=== PATIENT | male | born 1955 | race African-American/Black ===

== ENCOUNTER 2017-11-29 04:11 | Inpatient (IN) | payer OTHER ==
[2017-11-29 05:04] VITALS: BMI 46.1
--- NOTE | 2017-11-29 06:26 | PDOC ---
History of Present Illness - General Chief Complaint: Abscess Boil Stated Complaint: ABCESS History Source: Patient Exam Limitations: No Limitations - History of Present Illness Initial Comments: 11/29/17 06:08 Patient is a 62-year-old male with history of diabetes, sarcoidosis, psoriatic arthritis, scrotal abscess complaining off bilateral leg swelling 1 month, shortness of breath, scrotal abscess x 6 months, 30 lbs weight loss over 6 month. States now sleeping 18 hours per day, has weakness and is unable to walk. Patient states as it relates to the abscess, has been ongoing x 6 months , has been on 2 courses of Augmentin last course was 2 weeks ago. States it has been has large a fist and has opened on it owned and drained several times with from purulent, to serosanguinous to bloody discharge. has been on the road travelling and so has no been able to take care of this sufficiently. The most troubling symptoms today is the b/l leg swelling which are now up to the knees, which is now painful 8/10 making it difficult to walk. States it feels as if he has boots on the leg. has been elevating them at night but no relief, remained the same in the morning. 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 PMD: Dr. Dockery PMHX: As above PSOCHX: neg etoh, drug, cig ALL: NKDA GENERAL/CONSTITUTIONAL: [No fever or chills. No weakness. No weight change.] HEAD, EYES, EARS, NOSE AND THROAT: [No change in vision. No ear pain or discharge. No sore throat.] CARDIOVASCULAR: [No chest pain (+) shortness of breath.] RESPIRATORY: [No cough, wheezing, or hemoptysis.] GASTROINTESTINAL: [No nausea, vomiting, diarrhea or constipation. No rectal bleeding.] GENITOURINARY: [No dysuria, frequency, or change in urination.] MUSCULOSKELETAL: (+) joint or muscle swelling or pain. No neck or back pain.] SKIN AND BREASTS: (+) rash (-) easy bruising.] NEUROLOGIC: [No headache, vertigo, loss of consciousness, or loss of sensation.] PSYCHIATRIC: [No depression or anxiety.] ENDOCRINE: [No increased thirst. No abnormal weight change.] HEMATOLOGIC/LYMPHATIC: [No anemia, easy bleeding, or history of blood clots.] ALLERGIC/IMMUNOLOGIC: [No hives or skin allergy. No latex allergy.] GENERAL: [The patient is awake, alert, and fully oriented, in mild distress.] HEAD: [Normal with no signs of trauma.] EYES: [Pupils equal, round and reactive to light, extraocular movements intact, sclera anicteric, conjunctiva clear.] ENT: [Ears normal, nares patent, oropharynx clear without exudates. Moist mucous membranes.] NECK: [Normal range of motion, supple without lymphadenopathy, JVD, or masses.] LUNGS: [Breath sounds equal, clear to auscultation bilaterally. No wheezes, and no crackles.] HEART: [Regular rate and rhythm, normal S1 and S2 without murmur, rub.] ABDOMEN: [Soft, nontender, normoactive bowel sounds. No guarding, no rebound. No masses.] EXTREMITIES: [Normal range of motion, 2+ pitting edema b/l lower ext up to knee. No clubbing or cyanosis. (+) calf tenderness, (+) erythema , or tenderness.] NEUROLOGICAL: [Cranial nerves II through XII grossly intact. Normal speech, normal gait.] PSYCH: [Normal mood, normal affect.] SKIN: [Warm, Dry, (+) hyperpigmentation to the b/l lower ext, poor turgor noted. ] Past History - Past Medical History Allergies/Adverse Reactions: Allergies Allergy/AdvReac Type Severity Reaction Status Date / Time cashew nut Allergy Verified 11/29/17 05:05 pistachio nut Allergy Verified 11/29/17 05:05 - Suicide/Smoking/Psychosocial Hx Smoking History: Never smoked Have you smoked in the past 12 months: No Information on smoking cessation initiated: No Hx Alcohol Use: No Drug/Substance Use Hx: No *Physical Exam - Vital Signs Last Vital Signs Temp Pulse Resp BP Pulse Ox 98.8 F 101 H 18 136/66 98 11/29/17 05:00 11/29/17 05:00 11/29/17 05:00 11/29/17 05:00 11/29/17 05:00 Medical Decision Making - Medical Decision Making 11/29/17 06:08 Patient is a 62-year-old male with history of diabetes, sarcoidosis, psoriatic arthritis, scrotal abscess complaining off bilateral leg swelling 1 month, shortness of breath, scrotal abscess x 6 months, 30 lbs weight loss over 6 month. States now sleeping 18 hours per day, has weakness and is unable to walk. will get labs, cxr, ekg, doppler of legs possible admission EKG SR rate 91, RAD, (-) ST-T wave changes Endorsed to Marine *DC/Admit/Observation/Transfer Diagnosis at time of Disposition: Bilateral lower extremity edema, SOB (shortness of breath), Scrotal abscess - Discharge Dispostion Condition at time of disposition: Stable - Referrals Referrals: Natalia Schaefer MD [Primary Care Provider] - - Patient Instructions - Post Discharge Activity
[2017-11-29 07:21] LABS: BASO % 1.2 % (0-2.0); EOS % 10.8 % (0-4.5); HEMOGLOBIN 11.9 GM/dL (11.7-16.9); LYMPH % 9.1 % (8-40); MCH 30.5 pg (25.7-33.7); MCHC 34.1 g/dl (32.0-35.9); MEAN CELL VOLUME 89.5 fl (80-96); MEAN PLT VOLUME 7.5 fl (7.5-11.1); MONO % 11.4 % (3.8-10.2); NEUT % 67.5 % (42.8-82.8); PLATELET COUNT 195 K/MM3 (134-434); RBC 3.91 M/mm3 (4.00-5.60); RDW 12.8 % (11.9-15.9); WHITE BLOOD COUNT 6.6 K/mm3 (4.0-10.0)
--- NOTE | 2017-11-29 07:27 | PDOC ---
*Physical Exam - Vital Signs Last Vital Signs Temp Pulse Resp BP Pulse Ox 98.8 F 101 H 18 136/66 98 11/29/17 05:00 11/29/17 05:00 11/29/17 05:00 11/29/17 05:00 11/29/17 05:00 - Physical Exam General Appearance: Yes: Nourished, Appropriately Dressed. No: Apparent Distress Respiratory/Chest: positive: Lungs Clear, Normal Breath Sounds. negative: Respiratory Distress, Accessory Muscle Use, Rhonchi, Stridor, Wheezing Cardiovascular: positive: Regular Rhythm, Regular Rate, S1, S2 (present). negative: Murmur Male Genitalia: positive: other (scrotal abscess to the L/mid scrotum with induration spreading to the L inguanal area, actively draining and warm to touch ) Extremity: positive: Pedal Edema (2+ pitting edma), Swelling Integumentary: positive: Dry, Warm, Erythema (L scrotum), Other (active draining ). negative: Normal Color (venous stasis changes to the lower extremities b/l) Neurologic: positive: Fully Oriented, Alert, Normal Mood/Affect, Normal Response ED Treatment Course - LABORATORY CBC & Chemistry Diagram: 11/29/17 07:02 11/29/17 07:02 Medical Decision Making - Medical Decision Making 11/29/17 07:26 Pt signed out to me by ANJANA Lima at 07:00. Pt presents with complaints of draining scrotal abscess and b/l pedal edema. Pt pending lab work, US and CXR. 11/29/17 11:55 Pt now in holding 2 after ultrasound. Pt with actively draining scrotal abscess to the L scrotal region with associated induration to the L testicular and L inguinal regions. No crepitus on palpation. No evidence of gangrene at this time. Failed outpatient treatment. No leukocytosis at this time, however blood glucose is elevated at 300 despite normal insulin use at home. Wound cultures and blood cultures obtained. Patient pending scrotal US. Pt also with b/l 2+ pitting edema and venous stasis changes. B/L lower extremity dopplers are negative for DVT at this time. BNP mildly elevated in the 500's. Urine with 1+ protein. Possibly d/t infection? No evidence of CHF on CXR. -Pt will need IV abx and urology followup. Vancomycin and zosyn ordered. Pt admitted to Med/Surg and case discussed with Dr. Bell. *DC/Admit/Observation/Transfer Diagnosis at time of Disposition: Bilateral lower extremity edema, Scrotal abscess - Discharge Dispostion Condition at time of disposition: Stable Decision to Admit order: Yes - Referrals Referrals: Natalia Schaefer MD [Primary Care Provider] - - Patient Instructions - Post Discharge Activity
[2017-11-29 08:41] LABS: ALBUMIN 2.8 g/dl (3.4-5.0); ALK PHOS 89 U/L (45-117); ANION GAP 8 MMOL/L (8-16); BILIRUBIN,TOTAL 0.4 mg/dL (0.2-1); BLOOD UREA NITROGEN 13 mg/dL (7-18); CALCIUM 8.7 mg/dL (8.5-10.1); CHLORIDE 101 mmol/L (98-107); CO2 26 mmol/L (21-32); CREATININE 1.3 mg/dL (0.55-1.3); N-TERMINAL BNP 586.7 pg/ml (5-125); SGOT/AST 17 U/L (15-37); SGPT/ALT 21 U/L (13-61); SODIUM 134 mmol/L (136-145); TOT PROT 6.5 g/dl (6.4-8.2)
[2017-11-29 08:53] LABS: GLUCOSE,RANDOM 306 mg/dL (74-106)
[2017-11-29] MEDS ORDERED: INSULIN REGULAR HUMAN 100 UNITS/ML *VIAL IVPUSH ONE (09:28)
[2017-11-29] MEDS ORDERED: INSULIN REGULAR HUMAN 100 UNITS/ML *VIAL ONE (10:52)
[2017-11-29 11:36] LABS: URINE APPEARANCE SLCLOUDY; URINE BILIRUBIN NEGATIVE (<2.0 mg/dL); URINE COLOR YELLOW; URINE GLUCOSE (UA) 3+ (NEGATIVE); URINE KETONE NEGATIVE (NEGATIVE); URINE LEUK ESTERASE NEGATIVE (NEGATIVE); URINE NITRITE NEGATIVE (NEGATIVE)
[2017-11-29 11:40] LABS: URINE PROTEIN 1+ (NEGATIVE)
[2017-11-29] MEDS ORDERED: PIPERACILLIN/TAZOB 3.375 GM 3.375 GM in DEXTROSE 5%-WATER - 50 ML IVPB ONE (11:49)
[2017-11-29] MEDS ORDERED: VANCOMYCIN 1,000 MG in DEXTROSE 5%-WATER - 250 ML IVPB ONE (11:49)
[2017-11-29 11:50] LABS: EPI CELLS RARE /HPF (FEW); GRANULAR CASTS 5 /lpf; URINE BACTERIA RARE /hpf (NONE SEEN); URINE HYALINE CAST 59 /lpf; URINE MUCUS RARE
[2017-11-29] MEDS ORDERED: PIPERACILLIN/TAZOB 3.375 GM 3.375 GM/50 ML BAG IVPB ONE (13:19)
[2017-11-29] MEDS ORDERED: VANCOMYCIN 1 GRAM (PRE-DOCKED) 1,000 MG/250 ML BAG IVPB ONE (13:19)
[2017-11-29] MEDS ORDERED: ONDANSETRON 4 MG/2 ML VIAL IVPUSH PRN (13:57)
[2017-11-29] MEDS ORDERED: IBUPROFEN 200 MG TABLET PO SCH (14:00)
--- NOTE | 2017-11-29 14:29 | HP ---
Admitting History and Physical - Primary Care Physician PCP: Natalia Schaefer - Admission Chief Complaint: I can't walk History of Present Illness: Mr Gray is a pleasant 62 year old male who comes in complaining of difficulty walking secondary to scrotal abscess and leg pain with swelling. He says that the abscess began in June of this year. It has swollen and ruptured multiple times over the past 4 months. He has been seen by Dr Schaefer during this time and was prescribed augmentin and a salve. He says initially it would improve but did not last long. He was recently on prednisone for psoriatic arthritis but this was stopped approximately 2 months ago. Last month he noted that he was having bilateral lower extremity edema and it has been getting worse. He says he always feels like he is wearing a sock and is having pain in both legs with the edema. He says that he tries to elevate his legs but this did not help. He says the discomfort in his groin area combined with the pain and swelling in his legs caused him to be unable to walk. He says that with this he has fatigue and is sleeping 16 hours a day and 30lbs unintentional weight loss. He says that he has decreased appetite with this. He denies fevers, chills, lightheadedness, passing out (however he did pass out 2 weeks ago but was not brought to the hospital), chest pain, abdominal pain, nausea, vomiting, diarrhea , constipation, difficulty or pain on urination. He says he has chronic shortness of breath and this is unchanged. History Source: Patient Limitations to Obtaining History: No Limitations - Past Medical History Rheumatology: Yes: Sarcoidosis, Other (psoriatic arthritis) Endocrine: Yes: Diabetes Mellitus - Past Surgical History Past Surgical History: Yes: None - Smoking History Smoking history: Never smoked Have you smoked in the past 12 months: No - Alcohol/Substance Use Hx Alcohol Use: Yes (5-6 drinks per week) History of Substance Use: reports: Marijuana - Social History Usual Living Arrangement: Yes: With Spouse ADL: Independent History of Recent Travel: Yes Home Medications - Allergies Allergies/Adverse Reactions: Allergies Allergy/AdvReac Type Severity Reaction Status Date / Time cashew nut Allergy Verified 11/29/17 05:05 pistachio nut Allergy Verified 11/29/17 05:05 - Home Medications Home Medications: Ambulatory Orders Ibuprofen [Advil -] 1,200 mg PO QID 11/29/17 Insulin Glargine,Hum.rec.anlog [Lantus] 80 unit SQ HS 11/29/17 Family Disease History - Family Disease History Family Disease History: Diabetes: Mother (dementia), CA: Father (prostate), Brother (prostate), Other: Mother Review of Systems Findings/Remarks: Full review of systems obtained, as per HPI and otherwise negative Physical Examination Vital Signs: Vital Signs Temperature 36.9 C 11/29/17 08:27 Pulse Rate 66 11/29/17 08:27 Respiratory Rate 17 11/29/17 08:27 Blood Pressure 129/66 11/29/17 08:27 O2 Sat by Pulse Oximetry (%) 95 11/29/17 08:27 Constitutional: Yes: No Distress, Calm, Obese (morbid) Eyes: Yes: Conjunctiva Clear, PERRL HENT: Yes: Atraumatic, Normocephalic Cardiovascular: Yes: Regular Rate and Rhythm. No: Gallop, Murmur, Rub Respiratory: Yes: Regular, CTA Bilaterally. No: Rales, Rhonchi, Wheezes Gastrointestinal: Yes: Normal Bowel Sounds, Soft. No: Distention, Tenderness Extremities: Yes: Other (chronic venous stasis changes) Edema: LLE: 2+, RLE: 2+ Labs: CBC, BMP 11/29/17 07:02 11/29/17 07:02 Imaging - Results Chest X-ray: Report Reviewed, Image Reviewed Ultrasound: Report Reviewed Problem List - Problems (1) Scrotal abscess Assessment/Plan: -case d/w Dr Zuleta -patient with cellulitis and fistula -admit to med surg -given vancomycin and zosyn in the ED -wound cultures sent -will continue zosyn -urology consult Code(s): N49.2 - INFLAMMATORY DISORDERS OF SCROTUM (2) Psoriatic arthritis Assessment/Plan: -with pain controlled by high dose ibuprofen and methotrexate -will hold methotrexate in light of active infection -recently taken off of prednisone -considering poorly controlled DM, will hold ibuprofen as well -consult rheumatology for guidance Code(s): L40.50 - ARTHROPATHIC PSORIASIS, UNSPECIFIED (3) Diabetes mellitus Assessment/Plan: -diabetic diet -continue lantus 80 units qhs (may be changed to levemir) -FSBS and SSI -check HgbA1c Code(s): E11.9 - TYPE 2 DIABETES MELLITUS WITHOUT COMPLICATIONS (4) Sarcoid Assessment/Plan: -pulmonary -consult pulmonary for assistance Code(s): D86.9 - SARCOIDOSIS, UNSPECIFIED (5) Syncope Assessment/Plan: -occurred 2 weeks ago -has not recurred -will check ECHO and carotid ultrasound Code(s): R55 - SYNCOPE AND COLLAPSE (6) Morbid obesity with BMI of 45.0-49.9, adult Assessment/Plan: -outpatient weight loss plan Code(s): E66.01 - MORBID (SEVERE) OBESITY DUE TO EXCESS CALORIES; Z68.42 - BODY MASS INDEX (BMI) 45.0-49.9, ADULT (7) Bilateral lower extremity edema Assessment/Plan: -suspect lymphedema -check ECHO to evaluate EF -monitor, will hold on diuretics at this time Code(s): R60.0 - LOCALIZED EDEMA
[2017-11-29] MEDS: LACTOBACILLUS ACIDOPHILUS 1 TABLET PO SCH (15:19)
--- NOTE | 2017-11-29 16:02 | ECHO ---
Name: MAURICE ISAAC Exam:Adult Echocardiogram Study Date: 11/29/2017 02:28 PM Age: 62 yrs Reason For Study: syncope,BLE edema Height: 73 in Weight: 350 lb BSA: 2.7 m2 MMode/2D Measurements & Calculations RVDd: 3.9 cm Ao root diam: 3.5 cm IVSd: 1.2 cm LA dimension: 4.2 cm LVIDd: 5.4 cm ACS: 1.8 cm LVIDs: 4.4 cm LVPWd: 1.2 cm IVSs: 1.5 cm LVPWs: 1.4 cm EDV(Teich): 144.2 ml ESV(Teich): 86.3 ml Doppler Measurements & Calculations MV E max chriss: 80.2 cm/sec Ao V2 max: 156.4 cm/sec MV A max chriss: 83.2 cm/sec Ao max P.8 mmHg MV E/A: 0.96 Ao V2 mean: 125.5 cm/sec Ao mean P.7 mmHg Ao V2 VTI: 30.0 cm MR max chriss: 319.1 cm/sec TR max chriss: 282.6 cm/sec MR max P.7 mmHg TR max P.0 mmHg PI end-d chriss: 133.0 cm/sec Med Peak E' Chriss: 10.3 cm/sec Med E/e': 7.8 Lat Peak E' Chriss: 5.8 cm/sec Lat E/e': 13.8 Left Ventricle The left ventricle is grossly normal size. Left ventricular systolic function is moderately reduced. Ejection Fraction = 35-40%. There is severe inferior wall hypokinesis. There is basal posterolateral wall manuel re hypokinesis. Right Ventricle The right ventricle is grossly normal size. The right ventricular systolic function is grossly normal . Atria Borderline left atrial enlargement. Right atrial size is normal. Mitral Valve There is mild mitral valve thickening. There is trace to mild mitral regurgitation. Tricuspid Valve The tricuspid valve is not well visualized. There is Trace to mild tricuspid regurgitation. Aortic Valve The aortic valve opens well. There is mild aortic valve thickening. The aortic valve is trileaflet. T race aortic regurgitation. Pulmonic Valve The pulmonic valve is not well visualized. Great Vessels The aortic root is normal size. Pericardium/Pleura There is no pericardial effusion. Interpretation Summary There is no comparison study available. The left ventricle is grossly normal size. The right ventricle is grossly normal size. Trace aortic regurgitation. Left ventricular systolic function is moderately reduced. There is trace to mild mitral regurgitation. Winston Clark MD 11/29/2017 04:01 PM
[2017-11-29] MEDS: PIPERACILLIN/TAZOB 3.375 GM 3.375 GM in DEXTROSE 5%-WATER - 50 ML IVPB SCH (17:09)
[2017-11-29] MEDS: INSULIN SLIDING SCALE (NOVOLOG) 1 VIAL SQ SCH ×2 (17:17→23:49)
[2017-11-29] MEDS ORDERED: INSULIN (NOVOLOG) ASPART 100 UNITS/ML 10ML VIAL ONE ×2 (17:18→22:33)
--- NOTE | 2017-11-29 18:09 | EKG ---
Test Reason : Blood Pressure : / mmHG Vent. Rate : 091 BPM Atrial Rate : 091 BPM P-R Int : 186 ms QRS Dur : 094 ms QT Int : 384 ms P-R-T Axes : 055 247 055 degrees QTc Int : 472 ms NORMAL SINUS RHYTHM POSSIBLE ANTERIOR INFARCT , AGE UNDETERMINED ABNORMAL ECG NO PREVIOUS ECGS AVAILABLE Confirmed by MEGHAN NORRIS MD ([id number]) on 11/29/2017 6:08:27 PM Referred By: Confirmed By:MEGHAN NORRIS MD
--- NOTE | 2017-11-29 18:32 | CON.GU ---
Consult Consult Specialty:: Referred by:: ED Reason for Consultation:: scrotal abscess - History of Present Illness Chief Complaint: scrotal abscess History of Present Illness: 62 year old male with a recurrently draining perineal abscess over the last few months. He has not seen a urologist yet. Recently he also saw [facility] on the LLE with swelling, the abscess self drained. He is hyperglycemic - History Source History Provided By: Patient Limitations to Obtaining History: No Limitations - Past Medical History Rheumatology: Yes: Sarcoidosis, Other (psoriatic arthritis) Endocrine: Yes: Diabetes Mellitus - Past Surgical History Past Surgical History: Yes: None - Alcohol/Substance Use Hx Alcohol Use: Yes (5-6 drinks per week) History of Substance Use: reports: Marijuana - Smoking History Smoking history: Never smoked Have you smoked in the past 12 months: No - Social History ADL: Independent History of Recent Travel: Yes Home Medications - Allergies Allergies/Adverse Reactions: Allergies Allergy/AdvReac Type Severity Reaction Status Date / Time cashew nut Allergy Verified 11/29/17 05:05 pistachio nut Allergy Verified 11/29/17 05:05 - Home Medications Home Medications: Ambulatory Orders Ibuprofen [Advil -] 1,200 mg PO QID 11/29/17 Insulin Glargine,Hum.rec.anlog [Lantus] 80 unit SQ HS 11/29/17 Family Disease History - Family Disease History Family Disease History: Diabetes: Mother (dementia), CA: Father (prostate), Brother (prostate), Other: Mother Review of Systems - Review of Systems Constitutional: denies: Chills, Fever Genitourinary: reports: Other (perineal swelling, pain and drainage) Physical Exam- Vital Signs: Vital Signs Temperature 99.2 F 11/29/17 17:10 Pulse Rate 105 H 11/29/17 17:10 Respiratory Rate 18 11/29/17 17:10 Blood Pressure 126/80 11/29/17 17:10 O2 Sat by Pulse Oximetry (%) 100 11/29/17 17:10 Scrotum: Yes: Other (self drained area along inside of left thigh/groin. no masses appreciated.) Labs: CBC, BMP 11/29/17 07:02 11/29/17 07:02 Problem List - Problems (1) Scrotal abscess Assessment/Plan: self drained. IV ABX. will reassess. also need to address adjacent LLE swelling. better diabetic control Code(s): N49.2 - INFLAMMATORY DISORDERS OF SCROTUM
[2017-11-29] MEDS ORDERED: INSULIN (LEVEMIR) 100 UNITS/ML UNITS SQ SCH (22:00)
[2017-11-29] MEDS: HEPARIN NA (PORCINE) 5,000 UNITS/ML 1ML VIAL SQ SCH (23:50)
[2017-11-30] MEDS: INSULIN (LEVEMIR) 100 UNITS/ML UNITS SQ SCH ×3 (00:09→21:52)
[2017-11-30] MEDS ORDERED: PIPERACILLIN/TAZOBACTAM 3.375 GM VIAL IVPB ONE ×3 (01:41→17:00)
[2017-11-30] MEDS ORDERED: DEXTROSE 5%-WATER - 50 ML IVPB ONE ×3 (01:41→17:00)
[2017-11-30] MEDS: PIPERACILLIN/TAZOB 3.375 GM 3.375 GM in DEXTROSE 5%-WATER - 50 ML IVPB SCH ×3 (02:38→17:23)
[2017-11-30 05:23] LABS: URINE APPEARANCE CLEAR; URINE BILIRUBIN NEGATIVE (<2.0 mg/dL); URINE COLOR YELLOW; URINE GLUCOSE (UA) 1+ (NEGATIVE); URINE KETONE NEGATIVE (NEGATIVE); URINE LEUK ESTERASE NEGATIVE (NEGATIVE); URINE NITRITE NEGATIVE (NEGATIVE); URINE PROTEIN NEGATIVE (NEGATIVE); URINE UROBILINOGEN 4.0 E.U/dl mg/dL (0.2-1.0)
[2017-11-30] MEDS: INSULIN SLIDING SCALE (NOVOLOG) 1 VIAL SQ SCH ×4 (06:22→21:53)
[2017-11-30] MEDS: HEPARIN NA (PORCINE) 5,000 UNITS/ML 1ML VIAL SQ SCH ×3 (06:27→21:53)
[2017-11-30] MEDS ORDERED: INSULIN (LEVEMIR) 100 UNITS/ML UNITS SQ ONE (07:01)
[2017-11-30 07:40] LABS: EOS % 19.7 % (0-4.5); HEMATOCRIT 33.8 % (35.4-49); HEMOGLOBIN 11.5 GM/dL (11.7-16.9); MCH 30.3 pg (25.7-33.7); MCHC 34.1 g/dl (32.0-35.9); MEAN CELL VOLUME 88.7 fl (80-96); MEAN PLT VOLUME 7.7 fl (7.5-11.1); MONO % 16.5 % (3.8-10.2); NEUT % 49.8 % (42.8-82.8); PLATELET COUNT 206 K/MM3 (134-434); RBC 3.81 M/mm3 (4.00-5.60); RDW 12.8 % (11.9-15.9); WHITE BLOOD COUNT 5.4 K/mm3 (4.0-10.0)
[2017-11-30 07:58] LABS: ANION GAP 12 MMOL/L (8-16); BLOOD UREA NITROGEN 9 mg/dL (7-18); CALCIUM 8.7 mg/dL (8.5-10.1); CHLORIDE 105 mmol/L (98-107); CO2 23 mmol/L (21-32); GLUCOSE,RANDOM 167 mg/dL (74-106); MAGNESIUM 1.9 mg/dL (1.8-2.4); PHOSPHOROUS 4.2 mg/dL (2.5-4.9); POTASSIUM 3.8 mmol/L (3.5-5.1); SODIUM 140 mmol/L (136-145)
--- NOTE | 2017-11-30 09:29 | CON.CARD ---
Consult Consult Specialty:: Cardiology Referred by:: Arabella Reason for Consultation:: syncope, cardiomyopathy - History of Present Illness Chief Complaint: edema, syncope, leg pain History of Present Illness: 62M h/o sarcoidosis, psoriatic arthritis p/w scrotal abscess, leg pain, edema. Has bryan lower ext edema worsening over the last month with pain in both feet. Leg elevation did nto help. Has lost 30 lbs unintentionally, fatigue. No chest pain. Has had dyspnea on exertion for about the last 2 months, getting worse. Lives in 3rd floor walk up and notes that it was getting harder to walk up the stairs due to dyspnea and leg pains. also endorses orthopnea. Also notes history of syncope about 2 weeks ago, didn't eat enough, had too much alcohol he thinks. 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 Echo showed EF 35-40% during this admission, per patient no prior cardiac testing. Started on PO lasix, also on IV abx for scrotal abscess. No prior cardiac history. - History Source History Provided By: Patient - Past Medical History Cardio/Vascular: Yes: HTN Rheumatology: Yes: Sarcoidosis, Other (psoriatic arthritis) Endocrine: Yes: Diabetes Mellitus - Past Surgical History Past Surgical History: Yes: None - Alcohol/Substance Use Hx Alcohol Use: Yes (5-6 drinks per week) History of Substance Use: reports: Marijuana - Smoking History Smoking history: Never smoked Have you smoked in the past 12 months: No - Social History ADL: Independent History of Recent Travel: Yes Home Medications - Allergies Allergies/Adverse Reactions: Allergies Allergy/AdvReac Type Severity Reaction Status Date / Time cashew nut Allergy Verified 11/29/17 05:05 pistachio nut Allergy Verified 11/29/17 05:05 - Home Medications Home Medications: Ambulatory Orders Ibuprofen [Advil -] 1,200 mg PO QID 11/29/17 Insulin Glargine,Hum.rec.anlog [Lantus] 80 unit SQ HS 11/29/17 Methotrexate [Mexate -] 2.5 mg PO WEEKLY 11/29/17 Family Disease History - Family Disease History Family Disease History: Diabetes: Mother (dementia), CA: Father (prostate), Brother (prostate), Other: Mother Review of Systems - Review of Systems Constitutional: reports: Weakness Eyes: reports: No Symptoms HENT: reports: No Symptoms Neck: reports: No Symptoms Cardiovascular: reports: Edema, Shortness of Breath Respiratory: reports: SOB on Exertion Gastrointestinal: reports: No Symptoms Genitourinary: reports: Testicular Pain Musculoskeletal: reports: Joint Pain Integumentary: reports: No Symptoms Neurological: reports: No Symptoms Endocrine: reports: No Symptoms, Unexplained Weight Loss Hematology/Lymphatic: reports: No Symptoms Psychiatric: reports: No Symptoms Vital Signs: Vital Signs Temperature 99.1 F 11/30/17 09:02 Pulse Rate 95 H 11/30/17 09:02 Respiratory Rate 18 11/30/17 09:02 Blood Pressure 95/62 11/30/17 09:02 O2 Sat by Pulse Oximetry (%) 95 11/30/17 03:42 Constitutional: Yes: Well Nourished, No Distress, Calm Eyes: Yes: Conjunctiva Clear, EOM Intact HENT: Yes: Atraumatic, Normocephalic Neck: Yes: Supple, Trachea Midline Respiratory: Yes: Regular, CTA Bilaterally Gastrointestinal: Yes: Normal Bowel Sounds, Soft Cardiovascular: Yes: Regular Rate and Rhythm JVD: Yes Heart Sounds: Yes: S1, S2 Musculoskeletal: Yes: WNL Extremities: Yes: WNL Edema: Yes Edema: LLE: 2+, RLE: 2+ Peripheral Pulses: 2+ Left Doralis Pedis, 2+ Right Dorsalis Pedis Integumentary: Yes: WNL Neurological: Yes: Alert, Oriented ...Motor Strength: WNL Psychiatric: Yes: Alert, Oriented - Other Data Labs, Other Data: CBC, BMP 11/30/17 06:30 11/30/17 06:30 Troponin, BNP 11/29/17 18:43 Troponin I < 0.02 Troponin, BNP 11/29/17 18:43 Troponin I < 0.02 Assessment/Plan Carotid dopplers 11/2017 intimal thickening of R CCA and LCCA without sig stenosis. Echo 11/2017 EF 35-40%, tr-mild MR, nl RV, nl RV function EKG: sinus, old ant infarct 62M h/o sarcoidosis, psoriatic arthritis p/w scrotal abscess, leg pain, edema with new cardiomyopathy cardiomyopathy - EF 35-40% on echo, edema, orthopnea - etiology may be related to sarcoid, will discuss ischemic testing as outpatient, check TSH, iron studies - advised to stop alcohol use - started on lasix 20 mg daily - will start metoprolol succinate 12.5 mg daily, lisinopril 2.5 mg daily syncope - per history consistent with vasovagal, hypovolemia Scrotal abscess - on abx, manage per ID and primary sarcoidosis, psoriatic arthritis - rheum consulted, on methotrexate
[2017-11-30] MEDS ORDERED: FLU VACCINE QUAD 60 MCG/0.5 ML (MDV 18-19) IM ONE ×2 (10:00→12:45)
--- NOTE | 2017-11-30 11:45 | CON.PULM ---
Consult Consult Specialty:: PULMONARY Referred by:: Dr. Bell Reason for Consultation:: sarcoidosis - History of Present Illness Chief Complaint: leg swelling History of Present Illness: 62yo male with h/o psoriatic arthritis, sarcoidosis, DM who was admitted with worsening leg and scrotal swelling. Does report some shortness of breath with exertion. No fevers, chills or sweats. +unintentional weight loss. He states he was diagnosed with sarcoidosis about 3 years ago but not via biopsy and only with imaging. Not treated for sarcoidosis as he was asymptomatic. 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 No pets at home. - History Source History Provided By: Patient, Medical Record Limitations to Obtaining History: No Limitations - Past Medical History Cardio/Vascular: Yes: HTN Rheumatology: Yes: Sarcoidosis, Other (psoriatic arthritis) Endocrine: Yes: Diabetes Mellitus - Past Surgical History Past Surgical History: Yes: None - Alcohol/Substance Use Hx Alcohol Use: Yes (5-6 drinks per week) History of Substance Use: reports: Marijuana - Smoking History Smoking history: Never smoked Have you smoked in the past 12 months: No - Social History ADL: Independent History of Recent Travel: Yes Home Medications - Allergies Allergies/Adverse Reactions: Allergies Allergy/AdvReac Type Severity Reaction Status Date / Time cashew nut Allergy Verified 11/29/17 05:05 pistachio nut Allergy Verified 11/29/17 05:05 - Home Medications Home Medications: Ambulatory Orders Ibuprofen [Advil -] 1,200 mg PO QID 11/29/17 Insulin Glargine,Hum.rec.anlog [Lantus] 80 unit SQ HS 11/29/17 Methotrexate [Mexate -] 2.5 mg PO WEEKLY 11/29/17 Family Disease History - Family Disease History Family Disease History: Diabetes: Mother (dementia), CA: Father (prostate), Brother (prostate), Other: Mother Review of Systems - Review of Systems Constitutional: reports: Unintentional Wgt. Loss, Weakness. denies: Chills, Fever Eyes: denies: Recent Change in Vision HENT: denies: Nasal Congestion, Throat Pain Neck: denies: Stiffness, Tenderness Cardiovascular: reports: Edema, Shortness of Breath. denies: Chest Pain, Palpitations Respiratory: reports: Cough. denies: Hemoptysis, Wheezing Gastrointestinal: denies: Abdominal Pain, Nausea, Vomiting Genitourinary: denies: Dysuria, Hematuria Neurological: denies: Dizziness, Headache Endocrine: reports: Unexplained Weight Loss Physical Exam Vital Sings: Vital Signs Temperature 99.1 F 11/30/17 09:02 Pulse Rate 95 H 11/30/17 09:02 Respiratory Rate 18 11/30/17 09:02 Blood Pressure 95/62 11/30/17 09:02 O2 Sat by Pulse Oximetry (%) 95 11/30/17 03:42 Constitutional: Yes: Calm Eyes: Yes: Conjunctiva Clear, EOM Intact HENT: Yes: Atraumatic, Normocephalic Neck: Yes: Supple, Trachea Midline. No: Lymphadenopathy Cardiovascular: Yes: Regular Rate and Rhythm Respiratory: Yes: Diminished (decreased breath sounds at the bases) ...Clubbing: No Gastrointestinal: Yes: Normal Bowel Sounds, Soft, Abdomen, Obese. No: Tenderness Edema: Yes Neurological: Yes: Alert, Oriented Labs: CBC, BMP 11/30/17 06:30 11/30/17 06:30 Imaging - Results Chest X-ray: Report Reviewed, Image Reviewed (hilar prominence) Problem List - Problems (1) Acute on chronic systolic (congestive) heart failure Code(s): I50.23 - ACUTE ON CHRONIC SYSTOLIC (CONGESTIVE) HEART FAILURE (2) Diabetes mellitus Code(s): E11.9 - TYPE 2 DIABETES MELLITUS WITHOUT COMPLICATIONS (3) Morbid obesity with BMI of 45.0-49.9, adult Code(s): E66.01 - MORBID (SEVERE) OBESITY DUE TO EXCESS CALORIES; Z68.42 - BODY MASS INDEX (BMI) 45.0-49.9, ADULT (4) Sarcoid Code(s): D86.9 - SARCOIDOSIS, UNSPECIFIED (5) Scrotal abscess Code(s): N49.2 - INFLAMMATORY DISORDERS OF SCROTUM Assessment/Plan Scrotal Abscess Acute on likely Chronic Systolic Heart Failure Sarcoidosis Eosinophilia Psoriatic Arthritis DM Morbid Obesity - continue antibiotics - f/u cultures - agree with lasix - monitor urine output, creatinine - daily weights - will order CT chest with contrast to evaluate hilar prominence but likely from sarcoidosis - will need outpt f/u including PFTs, LINWOOD level - DVT prophylaxis Thank you for this consult Carrington Rushing MD
[2017-11-30] MEDS ORDERED: INSULIN (NOVOLOG) ASPART 100 UNITS/ML 10ML VIAL ONE ×2 (12:09→21:32)
[2017-11-30] MEDS: metoPROLOL SUCCINATE 25 MG TAB.SR.24H (FP) PO SCH (12:12)
[2017-11-30] MEDS: FUROSEMIDE 20 MG TABLET (FP) PO SCH (12:13)
[2017-11-30] MEDS: LISINOPRIL 5 MG TABLET (FP) PO SCH (12:14)
[2017-11-30] MEDS: LACTOBACILLUS ACIDOPHILUS 1 TABLET PO SCH (12:15)
--- NOTE | 2017-11-30 13:04 | PN ---
Progress Note, Physician Chief Complaint: Mr Gray says he is having pain in his legs and swelling is unchanged. No cp, sob, n/v. - Current Medication List Current Medications: Active Medications Acetaminophen (Tylenol -) 650 mg PO Q4H PRN PRN Reason: FEVER Furosemide (Lasix -) 20 mg PO DAILY [facility] Last Admin: 11/30/17 12:13 Dose: 20 mg Heparin Sodium (Porcine) (Heparin -) 5,000 unit SQ TID [facility] Last Admin: 11/30/17 06:27 Dose: 5,000 unit Piperacillin Sod/Tazobactam (Sod 3.375 gm/ Dextrose) 50 mls @ 100 mls/hr IVPB Q8H-IV [facility]; Protocol Last Admin: 11/30/17 12:12 Dose: 100 mls/hr Insulin Aspart (Novolog Vial Sliding Scale -) 1 vial SQ ACHS [facility]; Protocol Last Admin: 11/30/17 12:16 Dose: Not Given Insulin Detemir (Levemir Vial) 40 units SQ BID@0700,2200 [facility] Last Admin: 11/30/17 06:28 Dose: 40 units Lactobacillus Acidophilus (Bacid -) 1 tab PO DAILY [facility] Last Admin: 11/30/17 12:15 Dose: 1 tab Lisinopril (Prinivil) 2.5 mg PO DAILY [facility] Last Admin: 11/30/17 12:14 Dose: 2.5 mg Metoprolol Succinate (Toprol Xl -) 12.5 mg PO DAILY [facility] Last Admin: 11/30/17 12:12 Dose: 12.5 mg Ondansetron HCl (Zofran Injection) 4 mg IVPUSH Q6H PRN PRN Reason: NAUSEA - Objective Vital Signs: Vital Signs Temperature 37.3 C 11/30/17 09:02 Pulse Rate 95 H 11/30/17 09:02 Respiratory Rate 18 11/30/17 09:02 Blood Pressure 95/62 11/30/17 09:02 O2 Sat by Pulse Oximetry (%) 95 11/30/17 03:42 Constitutional: Yes: No Distress, Calm, Obese Cardiovascular: Yes: Regular Rate and Rhythm. No: Gallop, Murmur, Rub Respiratory: Yes: Regular, CTA Bilaterally. No: Rales, Rhonchi, Wheezes Gastrointestinal: Yes: Normal Bowel Sounds, Soft. No: Distention, Tenderness Extremities: Yes: Other (changes of venous stasis) Edema: Yes Edema: LLE: 2+, RLE: 2+ Labs: CBC, BMP 11/30/17 06:30 11/30/17 06:30 Problem List - Problems (1) Acute systolic (congestive) heart failure Code(s): I50.21 - ACUTE SYSTOLIC (CONGESTIVE) HEART FAILURE (2) Scrotal abscess Code(s): N49.2 - INFLAMMATORY DISORDERS OF SCROTUM (3) Psoriatic arthritis Code(s): L40.50 - ARTHROPATHIC PSORIASIS, UNSPECIFIED (4) Diabetes mellitus Code(s): E11.9 - TYPE 2 DIABETES MELLITUS WITHOUT COMPLICATIONS (5) Sarcoid Code(s): D86.9 - SARCOIDOSIS, UNSPECIFIED (6) Syncope Code(s): R55 - SYNCOPE AND COLLAPSE (7) Morbid obesity with BMI of 45.0-49.9, adult Code(s): E66.01 - MORBID (SEVERE) OBESITY DUE TO EXCESS CALORIES; Z68.42 - BODY MASS INDEX (BMI) 45.0-49.9, ADULT (8) Bilateral lower extremity edema Code(s): R60.0 - LOCALIZED EDEMA Assessment/Plan (1) Scrotal abscess Assessment/Plan: -appreciate urology and ID assistance -continue zosyn per ID orders Code(s): N49.2 - INFLAMMATORY DISORDERS OF SCROTUM (2) Acute systolic CHF exacerbation -new diagnosis of CHF this admission -cardiology consulted and case discussed -placed on lasix 20mg po daily since lasix naive -monitor I/Os -started on metoprolol 12.5mg bid and lisinopril 2.5mg daily -monitor for improvement -increase lasix as tolerated -outpatient cardiac catheterization (3) Psoriatic arthritis Assessment/Plan: -considering cardiac disease and diabetic, patient is high risk for NSAID use -will not use NSAIDs at this time -holding methotrexate considering infection -rheumatology consulted for further evaluation and care Code(s): L40.50 - ARTHROPATHIC PSORIASIS, UNSPECIFIED (4) Diabetes mellitus Assessment/Plan: -HgbA1c 10.2 -currently well controlled on levemir 40 units bid (therapeutic substitution for lantus 80 units) -will need outpatient diet education for better control -continue current regimen -considering morbid obesity, bid dosing of long acting insulin may be better for overall control Code(s): E11.9 - TYPE 2 DIABETES MELLITUS WITHOUT COMPLICATIONS (5) Sarcoid Assessment/Plan: -appreciate pulmonary assistance -CT scan today Code(s): D86.9 - SARCOIDOSIS, UNSPECIFIED (6) Syncope Assessment/Plan: -has not recurred Code(s): R55 - SYNCOPE AND COLLAPSE (7) Morbid obesity with BMI of 45.0-49.9, adult Assessment/Plan: -outpatient weight loss plan Code(s): E66.01 - MORBID (SEVERE) OBESITY DUE TO EXCESS CALORIES; Z68.42 - BODY MASS INDEX (BMI) 45.0-49.9, ADULT (8) Bilateral lower extremity edema Assessment/Plan: -secondary to CH -management as above Code(s): R60.0 - LOCALIZED EDEMA
--- NOTE | 2017-11-30 14:21 | CON.ID ---
Consult Consult Specialty:: infectious diseases Referred by:: Reason for Consultation:: scrotal abscess - History of Present Illness Chief Complaint: draiange from the scrotum area History of Present Illness: 62 year old male who comes in complaining of difficulty walking secondary to scrotal abscess and leg pain with swelling. He says that the abscess began in June of this year. patient had rupture of the abscess couple of times with drainage . patient was initially treated with augmentin by his primary doctor patient mentions that inspite of the abx he still has not improved and continues to drain pus and it is foul smelling . He was recently on prednisone for psoriatic arthritis but this was stopped approximately 2 months ago. Last month he noted that he was having bilateral lower extremity edema and it has been getting worse. He says the discomfort in his groin area combined with the pain and swelling in his legs caused him to be unable to walk. He says that with this he has fatigue and is sleeping 16 hours a day and 30lbs unintentional weight loss. He denies fevers, chills, lightheadedness, passing out (, chest pain, abdominal pain, nausea, vomiting, diarrhea, constipation, difficulty or pain on urination. He says he has chronic shortness of breath and this is unchanged. - History Source History Provided By: Patient Limitations to Obtaining History: No Limitations - Past Medical History Cardio/Vascular: Yes: HTN Rheumatology: Yes: Sarcoidosis, Other (psoriatic arthritis) Endocrine: Yes: Diabetes Mellitus - Past Surgical History Past Surgical History: Yes: None - Alcohol/Substance Use Hx Alcohol Use: Yes (5-6 drinks per week) History of Substance Use: reports: Marijuana - Smoking History Smoking history: Never smoked Have you smoked in the past 12 months: No - Social History ADL: Independent History of Recent Travel: Yes Home Medications - Allergies Allergies/Adverse Reactions: Allergies Allergy/AdvReac Type Severity Reaction Status Date / Time cashew nut Allergy Verified 11/29/17 05:05 pistachio nut Allergy Verified 11/29/17 05:05 - Home Medications Home Medications: Ambulatory Orders Ibuprofen [Advil -] 1,200 mg PO QID 11/29/17 Insulin Glargine,Hum.rec.anlog [Lantus] 80 unit SQ HS 11/29/17 Methotrexate [Mexate -] 2.5 mg PO WEEKLY 11/29/17 Family Disease History - Family Disease History Family Disease History: Diabetes: Mother (dementia), CA: Father (prostate), Brother (prostate), Other: Mother Review of Systems - Review of Systems Constitutional: reports: Weakness Eyes: reports: No Symptoms HENT: reports: No Symptoms Neck: reports: No Symptoms Cardiovascular: reports: No Symptoms Respiratory: reports: No Symptoms Gastrointestinal: reports: No Symptoms Genitourinary: reports: Other (perineal abscess) Integumentary: reports: No Symptoms Neurological: reports: No Symptoms Endocrine: reports: No Symptoms Hematology/Lymphatic: reports: No Symptoms Psychiatric: reports: No Symptoms Physical Exam Vital Signs: Vital Signs Temperature 98.4 F 11/30/17 13:37 Pulse Rate 86 11/30/17 13:37 Respiratory Rate 20 11/30/17 13:37 Blood Pressure 138/73 11/30/17 13:37 O2 Sat by Pulse Oximetry (%) 95 11/30/17 03:42 Constitutional: Yes: Well Nourished, No Distress, Calm, Obese Cardiovascular: Yes: Regular Rate and Rhythm Respiratory: Yes: Regular, CTA Bilaterally Gastrointestinal: Yes: Normal Bowel Sounds, Soft Renal/: Yes: Scrotal Edema, Other (perineal abscess with draiange) Musculoskeletal: Yes: WNL Extremities: Yes: Other (chonic venous stasis changes) Neurological: Yes: Alert, Oriented Psychiatric: Yes: Alert, Oriented Labs: CBC, BMP 11/30/17 06:30 11/30/17 06:30 Assessment/Plan Problem List - Problems (1) Acute systolic (congestive) heart failure Code(s): I50.21 - ACUTE SYSTOLIC (CONGESTIVE) HEART FAILURE (2) Scrotal abscess Code(s): N49.2 - INFLAMMATORY DISORDERS OF SCROTUM (3) Psoriatic arthritis Code(s): L40.50 - ARTHROPATHIC PSORIASIS, UNSPECIFIED (4) Diabetes mellitus Code(s): E11.9 - TYPE 2 DIABETES MELLITUS WITHOUT COMPLICATIONS (5) Sarcoid Code(s): D86.9 - SARCOIDOSIS, UNSPECIFIED (6) Syncope Code(s): R55 - SYNCOPE AND COLLAPSE (7) Morbid obesity with BMI of 45.0-49.9, adult Code(s): E66.01 - MORBID (SEVERE) OBESITY DUE TO EXCESS CALORIES; Z68.42 - BODY MASS INDEX (BMI) 45.0-49.9, ADULT (8) Bilateral lower extremity edema Code(s): R60.0 - LOCALIZED EDEMA plan await for urology to see the patient cx reports will start on zosyn rest as per the team
--- NOTE | 2017-11-30 14:31 | PN ---
Progress Note, Physician History of Present Illness: stable no new issues urology note noted pul on case - Current Medication List Current Medications: Active Medications Acetaminophen (Tylenol -) 650 mg PO Q4H PRN PRN Reason: FEVER Furosemide (Lasix -) 20 mg PO DAILY [facility] Last Admin: 11/30/17 12:13 Dose: 20 mg Heparin Sodium (Porcine) (Heparin -) 5,000 unit SQ TID [facility] Last Admin: 11/30/17 14:08 Dose: 5,000 unit Piperacillin Sod/Tazobactam (Sod 3.375 gm/ Dextrose) 50 mls @ 100 mls/hr IVPB Q8H-IV [facility]; Protocol Last Admin: 11/30/17 12:12 Dose: 100 mls/hr Insulin Aspart (Novolog Vial Sliding Scale -) 1 vial SQ ACHS [facility]; Protocol Last Admin: 11/30/17 12:16 Dose: Not Given Insulin Detemir (Levemir Vial) 40 units SQ BID@0700,2200 [facility] Last Admin: 11/30/17 06:28 Dose: 40 units Lactobacillus Acidophilus (Bacid -) 1 tab PO DAILY [facility] Last Admin: 11/30/17 12:15 Dose: 1 tab Lisinopril (Prinivil) 2.5 mg PO DAILY [facility] Last Admin: 11/30/17 12:14 Dose: 2.5 mg Metoprolol Succinate (Toprol Xl -) 12.5 mg PO DAILY [facility] Last Admin: 11/30/17 12:12 Dose: 12.5 mg Ondansetron HCl (Zofran Injection) 4 mg IVPUSH Q6H PRN PRN Reason: NAUSEA - Objective Vital Signs: Vital Signs Temperature 98.4 F 11/30/17 13:37 Pulse Rate 86 11/30/17 13:37 Respiratory Rate 20 11/30/17 13:37 Blood Pressure 138/73 11/30/17 13:37 O2 Sat by Pulse Oximetry (%) 95 11/30/17 03:42 Constitutional: Yes: No Distress, Calm, Obese Cardiovascular: Yes: Regular Rate and Rhythm Respiratory: Yes: Regular, CTA Bilaterally Gastrointestinal: Yes: Normal Bowel Sounds, Soft Genitourinary: Yes: Scrotal Edema, Other (scrotal draiange) Musculoskeletal: Yes: WNL Extremities: Yes: WNL Neurological: Yes: Alert, Oriented Psychiatric: Yes: Alert Labs: CBC, BMP 11/30/17 06:30 11/30/17 06:30 Assessment/Plan Problem List - Problems (1) Acute systolic (congestive) heart failure Code(s): I50.21 - ACUTE SYSTOLIC (CONGESTIVE) HEART FAILURE (2) Scrotal abscess Code(s): N49.2 - INFLAMMATORY DISORDERS OF SCROTUM (3) Psoriatic arthritis Code(s): L40.50 - ARTHROPATHIC PSORIASIS, UNSPECIFIED (4) Diabetes mellitus Code(s): E11.9 - TYPE 2 DIABETES MELLITUS WITHOUT COMPLICATIONS (5) Sarcoid Code(s): D86.9 - SARCOIDOSIS, UNSPECIFIED (6) Syncope Code(s): R55 - SYNCOPE AND COLLAPSE (7) Morbid obesity with BMI of 45.0-49.9, adult Code(s): E66.01 - MORBID (SEVERE) OBESITY DUE TO EXCESS CALORIES; Z68.42 - BODY MASS INDEX (BMI) 45.0-49.9, ADULT (8) Bilateral lower extremity edema Code(s): R60.0 - LOCALIZED EDEMA plan continue abx awaiting cx reports rest as per the team and urology
[2017-11-30] MEDS: ACETAMINOPHEN 325 MG TABLET (FP) PO PRN ×2 (15:20→19:45)
[2017-11-30] MEDS ORDERED: PT OWN MED DRAWER 7, Y5N ONE (19:50)
[2017-12-01] MEDS ORDERED: DEXTROSE 5%-WATER - 50 ML IVPB ONE ×3 (01:49→17:28)
[2017-12-01] MEDS ORDERED: PIPERACILLIN/TAZOBACTAM 3.375 GM VIAL IVPB ONE ×3 (01:49→17:27)
[2017-12-01] MEDS: PIPERACILLIN/TAZOB 3.375 GM 3.375 GM in DEXTROSE 5%-WATER - 50 ML IVPB SCH ×3 (01:55→17:37)
[2017-12-01] MEDS: ACETAMINOPHEN 325 MG TABLET (FP) PO PRN ×2 (01:55→10:13)
[2017-12-01] MEDS: INSULIN SLIDING SCALE (NOVOLOG) 1 VIAL SQ SCH ×4 (06:11→21:35)
[2017-12-01] MEDS: HEPARIN NA (PORCINE) 5,000 UNITS/ML 1ML VIAL SQ SCH ×3 (06:11→21:31)
[2017-12-01] MEDS: INSULIN (LEVEMIR) 100 UNITS/ML UNITS SQ SCH ×2 (06:11→21:32)
[2017-12-01 07:33] LABS: EOS % 21.5 % (0-4.5); HEMATOCRIT 33.5 % (35.4-49); HEMOGLOBIN 11.3 GM/dL (11.7-16.9); LYMPH % 11.3 % (8-40); MCH 29.8 pg (25.7-33.7); MCHC 33.7 g/dl (32.0-35.9); MEAN CELL VOLUME 88.4 fl (80-96); MEAN PLT VOLUME 7.1 fl (7.5-11.1); MONO % 14.3 % (3.8-10.2); NEUT % 51.9 % (42.8-82.8); PLATELET COUNT 221 K/MM3 (134-434); RBC 3.79 M/mm3 (4.00-5.60); RDW 12.8 % (11.9-15.9); WHITE BLOOD COUNT 5.8 K/mm3 (4.0-10.0)
[2017-12-01 08:13] LABS: ANION GAP 7 MMOL/L (8-16); BLOOD UREA NITROGEN 10 mg/dL (7-18); CALCIUM 8.5 mg/dL (8.5-10.1); CHLORIDE 105 mmol/L (98-107); CO2 27 mmol/L (21-32); CREATININE 0.9 mg/dL (0.55-1.3); GLUCOSE,RANDOM 115 mg/dL (74-106); POTASSIUM 3.5 mmol/L (3.5-5.1); SODIUM 138 mmol/L (136-145)
[2017-12-01] MEDS ORDERED: PT OWN MED DRAWER 7, Y5N ONE (09:59)
[2017-12-01] MEDS: metoPROLOL SUCCINATE 25 MG TAB.SR.24H (FP) PO SCH (10:14)
[2017-12-01] MEDS: FUROSEMIDE 20 MG TABLET (FP) PO SCH (10:15)
[2017-12-01] MEDS: LISINOPRIL 5 MG TABLET (FP) PO SCH (10:15)
[2017-12-01] MEDS: LACTOBACILLUS ACIDOPHILUS 1 TABLET PO SCH (10:15)
[2017-12-01 11:03] LABS: ACANTHOCYTES 0; ANISOCYTOSIS 0; HELMET CELLS 0; HOWELL-JOLLY BODIES 0; MACROCYTOSIS 0; OVALOCYTE 0; PLATELET ESTIMATE NORMAL; ROULEAU 0; SICKELED CELLS 0; TARGET CELLS 0; TEAR DROP CELLS 0; TOXIC GRANULATION 0
[2017-12-01] MEDS ORDERED: INSULIN (NOVOLOG) ASPART 100 UNITS/ML 10ML VIAL ONE ×2 (11:11→21:28)
--- NOTE | 2017-12-01 12:21 | PN ---
Progress Note, Physician Chief Complaint: Mr Gray complains of severe pain in his legs. Denies cp, sob, n/v. - Current Medication List Current Medications: Active Medications Acetaminophen (Tylenol -) 650 mg PO Q4H PRN PRN Reason: FEVER Last Admin: 12/01/17 10:13 Dose: 650 mg Furosemide (Lasix -) 20 mg PO DAILY [facility] Last Admin: 12/01/17 10:15 Dose: 20 mg Heparin Sodium (Porcine) (Heparin -) 5,000 unit SQ TID [facility] Last Admin: 12/01/17 06:11 Dose: 5,000 unit Piperacillin Sod/Tazobactam (Sod 3.375 gm/ Dextrose) 50 mls @ 100 mls/hr IVPB Q8H-IV [facility]; Protocol Last Admin: 12/01/17 10:12 Dose: 100 mls/hr Insulin Aspart (Novolog Vial Sliding Scale -) 1 vial SQ ACHS [facility]; Protocol Last Admin: 12/01/17 11:19 Dose: Not Given Insulin Detemir (Levemir Vial) 40 units SQ BID@0700,2200 [facility] Last Admin: 12/01/17 06:11 Dose: 40 units Lactobacillus Acidophilus (Bacid -) 1 tab PO DAILY [facility] Last Admin: 12/01/17 10:15 Dose: 1 tab Lisinopril (Prinivil) 2.5 mg PO DAILY [facility] Last Admin: 12/01/17 10:15 Dose: 2.5 mg Metoprolol Succinate (Toprol Xl -) 12.5 mg PO DAILY [facility] Last Admin: 12/01/17 10:14 Dose: 12.5 mg Nystatin (Nystop Powder -) 1 applic TP DAILY [facility] Ondansetron HCl (Zofran Injection) 4 mg IVPUSH Q6H PRN PRN Reason: NAUSEA - Objective Vital Signs: Vital Signs Temperature 37.1 C 12/01/17 08:58 Pulse Rate 95 H 12/01/17 08:58 Respiratory Rate 20 12/01/17 08:58 Blood Pressure 113/63 12/01/17 08:58 O2 Sat by Pulse Oximetry (%) 95 11/30/17 21:00 Constitutional: Yes: No Distress, Calm, Obese Cardiovascular: Yes: Regular Rate and Rhythm. No: Gallop, Murmur, Rub Respiratory: Yes: Regular, CTA Bilaterally. No: Rales, Rhonchi, Wheezes Gastrointestinal: Yes: Normal Bowel Sounds, Soft. No: Distention, Tenderness Extremities: Yes: Other (venous stasis changes) Edema: Yes Edema: LLE: 2+, RLE: 2+ Labs: CBC, BMP 12/01/17 07:15 12/01/17 07:15 Problem List - Problems (1) Acute systolic (congestive) heart failure Code(s): I50.21 - ACUTE SYSTOLIC (CONGESTIVE) HEART FAILURE (2) Scrotal abscess Code(s): N49.2 - INFLAMMATORY DISORDERS OF SCROTUM (3) Psoriatic arthritis Code(s): L40.50 - ARTHROPATHIC PSORIASIS, UNSPECIFIED (4) Diabetes mellitus Code(s): E11.9 - TYPE 2 DIABETES MELLITUS WITHOUT COMPLICATIONS (5) Sarcoid Code(s): D86.9 - SARCOIDOSIS, UNSPECIFIED (6) Syncope Code(s): R55 - SYNCOPE AND COLLAPSE (7) Morbid obesity with BMI of 45.0-49.9, adult Code(s): E66.01 - MORBID (SEVERE) OBESITY DUE TO EXCESS CALORIES; Z68.42 - BODY MASS INDEX (BMI) 45.0-49.9, ADULT (8) Bilateral lower extremity edema Code(s): R60.0 - LOCALIZED EDEMA Assessment/Plan (1) Scrotal abscess Assessment/Plan: -continue zosyn per ID Code(s): N49.2 - INFLAMMATORY DISORDERS OF SCROTUM (2) Acute systolic CHF exacerbation -continue metoprolol and lisinopril -case d/w Dr Ford -increase lasix to 40mg IV daily -daily weights (3) Psoriatic arthritis Assessment/Plan: -rheumatology consulted and awaiting recommendations -holding methotrexate in the short term secondary to active infection -will add low dose prn NSAIDs, patient is in pain with minimal relief from tylenol Code(s): L40.50 - ARTHROPATHIC PSORIASIS, UNSPECIFIED (4) Diabetes mellitus Assessment/Plan: -HgbA1c 10.2 -currently well controlled on levemir 40 units bid (therapeutic substitution for lantus 80 units) -will need outpatient diet education for better control -continue current regimen -considering morbid obesity, bid dosing of long acting insulin may be better for overall control Code(s): E11.9 - TYPE 2 DIABETES MELLITUS WITHOUT COMPLICATIONS (5) Sarcoid Assessment/Plan: -appreciate pulmonary assistance Code(s): D86.9 - SARCOIDOSIS, UNSPECIFIED (6) Syncope Assessment/Plan: -has not recurred Code(s): R55 - SYNCOPE AND COLLAPSE (7) Morbid obesity with BMI of 45.0-49.9, adult Assessment/Plan: -outpatient weight loss plan Code(s): E66.01 - MORBID (SEVERE) OBESITY DUE TO EXCESS CALORIES; Z68.42 - BODY MASS INDEX (BMI) 45.0-49.9, ADULT (8) Bilateral lower extremity edema Assessment/Plan: -secondary to CH -management as above Code(s): R60.0 - LOCALIZED EDEMA
--- NOTE | 2017-12-01 12:30 | PN ---
Progress Note (short form) - Note Progress Note: s: feels better. no dyspnea, cp, palps, dizziness. still has edema. Current Medications Acetaminophen (Tylenol -) 650 mg PO Q4H PRN PRN Reason: FEVER Last Admin: 12/01/17 10:13 Dose: 650 mg Furosemide (Lasix Injection -) 40 mg IVPUSH DAILY [facility] Heparin Sodium (Porcine) (Heparin -) 5,000 unit SQ TID [facility] Last Admin: 12/01/17 06:11 Dose: 5,000 unit Piperacillin Sod/Tazobactam (Sod 3.375 gm/ Dextrose) 50 mls @ 100 mls/hr IVPB Q8H-IV [facility]; Protocol Last Admin: 12/01/17 10:12 Dose: 100 mls/hr Insulin Aspart (Novolog Vial Sliding Scale -) 1 vial SQ ACHS [facility]; Protocol Last Admin: 12/01/17 11:19 Dose: Not Given Insulin Detemir (Levemir Vial) 40 units SQ BID@0700,2200 [facility] Last Admin: 12/01/17 06:11 Dose: 40 units Lactobacillus Acidophilus (Bacid -) 1 tab PO DAILY [facility] Last Admin: 12/01/17 10:15 Dose: 1 tab Lisinopril (Prinivil) 2.5 mg PO DAILY [facility] Last Admin: 12/01/17 10:15 Dose: 2.5 mg Metoprolol Succinate (Toprol Xl -) 12.5 mg PO DAILY [facility] Last Admin: 12/01/17 10:14 Dose: 12.5 mg Nystatin (Nystop Powder -) 1 applic TP DAILY [facility] Ondansetron HCl (Zofran Injection) 4 mg IVPUSH Q6H PRN PRN Reason: NAUSEA Vital Signs Vital Signs Period Temp Pulse Resp BP Sys/Crocker Pulse Ox Last 24 Hr 98.2 F-98.8 F 86-95 20-20 113-138/55-73 95 Constitutional: Yes: Well Nourished, No Distress, Calm Eyes: Yes: Conjunctiva Clear, EOM Intact HENT: Yes: Atraumatic, Normocephalic Neck: Yes: Supple, Trachea Midline Respiratory: Yes: Regular, CTA Bilaterally Gastrointestinal: Yes: Normal Bowel Sounds, Soft Cardiovascular: Yes: Regular Rate and Rhythm JVD: Yes Heart Sounds: Yes: S1, S2 Musculoskeletal: Yes: WNL Extremities: Yes: WNL Edema: Yes Edema: LLE: 2+, RLE: 2+ Peripheral Pulses: 2+ Left Doralis Pedis, 2+ Right Dorsalis Pedis Integumentary: Yes: WNL Neurological: Yes: Alert, Oriented ...Motor Strength: WNL Psychiatric: Yes: Alert, Oriented Assessment/Plan Carotid dopplers 11/2017 intimal thickening of R CCA and LCCA without sig stenosis. Echo 11/2017 EF 35-40%, tr-mild MR, nl RV, nl RV function EKG: sinus, old ant infarct 62M h/o sarcoidosis, psoriatic arthritis p/w scrotal abscess, leg pain, edema with new cardiomyopathy cardiomyopathy - EF 35-40% on echo, edema, orthopnea - etiology may be related to sarcoid, will discuss ischemic testing as outpatient, check TSH, iron studies - advised to stop alcohol use - Increase lasix to 40 mg IV daily for improved UOP - continue metoprolol succinate 12.5 mg daily, lisinopril 2.5 mg daily syncope - per history consistent with vasovagal, hypovolemia Scrotal abscess - on abx, manage per ID and primary sarcoidosis, psoriatic arthritis - rheum consulted, on methotrexate
--- NOTE | 2017-12-01 13:38 | PN ---
Progress Note, Physician History of Present Illness: says he is improving no discharge noted comfortable - Current Medication List Current Medications: Active Medications Acetaminophen (Tylenol -) 650 mg PO Q4H PRN PRN Reason: FEVER Last Admin: 12/01/17 10:13 Dose: 650 mg Furosemide (Lasix Injection -) 40 mg IVPUSH DAILY [facility] Heparin Sodium (Porcine) (Heparin -) 5,000 unit SQ TID [facility] Last Admin: 12/01/17 06:11 Dose: 5,000 unit Piperacillin Sod/Tazobactam (Sod 3.375 gm/ Dextrose) 50 mls @ 100 mls/hr IVPB Q8H-IV [facility]; Protocol Last Admin: 12/01/17 10:12 Dose: 100 mls/hr Insulin Aspart (Novolog Vial Sliding Scale -) 1 vial SQ ACHS [facility]; Protocol Last Admin: 12/01/17 11:19 Dose: Not Given Insulin Detemir (Levemir Vial) 40 units SQ BID@0700,2200 [facility] Last Admin: 12/01/17 06:11 Dose: 40 units Lactobacillus Acidophilus (Bacid -) 1 tab PO DAILY [facility] Last Admin: 12/01/17 10:15 Dose: 1 tab Lisinopril (Prinivil) 2.5 mg PO DAILY [facility] Last Admin: 12/01/17 10:15 Dose: 2.5 mg Metoprolol Succinate (Toprol Xl -) 12.5 mg PO DAILY [facility] Last Admin: 12/01/17 10:14 Dose: 12.5 mg Nystatin (Nystop Powder -) 1 applic TP DAILY [facility] Ondansetron HCl (Zofran Injection) 4 mg IVPUSH Q6H PRN PRN Reason: NAUSEA - Objective Vital Signs: Vital Signs Temperature 98.7 F 12/01/17 08:58 Pulse Rate 95 H 12/01/17 08:58 Respiratory Rate 20 12/01/17 08:58 Blood Pressure 113/63 12/01/17 08:58 O2 Sat by Pulse Oximetry (%) 95 11/30/17 21:00 Constitutional: Yes: No Distress, Calm, Obese Cardiovascular: Yes: Regular Rate and Rhythm Respiratory: Yes: Regular, CTA Bilaterally Gastrointestinal: Yes: Normal Bowel Sounds, Soft Musculoskeletal: Yes: WNL Extremities: Yes: WNL Neurological: Yes: Alert, Oriented Psychiatric: Yes: Alert, Oriented Labs: CBC, BMP 12/01/17 07:15 12/01/17 07:15 Assessment/Plan Problem List - Problems (1) Acute systolic (congestive) heart failure Code(s): I50.21 - ACUTE SYSTOLIC (CONGESTIVE) HEART FAILURE (2) Scrotal abscess Code(s): N49.2 - INFLAMMATORY DISORDERS OF SCROTUM (3) Psoriatic arthritis Code(s): L40.50 - ARTHROPATHIC PSORIASIS, UNSPECIFIED (4) Diabetes mellitus Code(s): E11.9 - TYPE 2 DIABETES MELLITUS WITHOUT COMPLICATIONS (5) Sarcoid Code(s): D86.9 - SARCOIDOSIS, UNSPECIFIED (6) Syncope Code(s): R55 - SYNCOPE AND COLLAPSE (7) Morbid obesity with BMI of 45.0-49.9, adult Code(s): E66.01 - MORBID (SEVERE) OBESITY DUE TO EXCESS CALORIES; Z68.42 - BODY MASS INDEX (BMI) 45.0-49.9, ADULT (8) Bilateral lower extremity edema Code(s): R60.0 - LOCALIZED EDEMA plan continue abx await for final plan from urology rest continue current mgmt patient stable monitor for drainage
--- NOTE | 2017-12-01 14:19 | PN ---
Progress Note, Physician History of Present Illness: PULMONARY ALERT,NO DISTRESS,-CP,-DYSPNEA - Current Medication List Current Medications: Active Medications Acetaminophen (Tylenol -) 650 mg PO Q4H PRN PRN Reason: FEVER Last Admin: 12/01/17 10:13 Dose: 650 mg Furosemide (Lasix Injection -) 40 mg IVPUSH DAILY [facility] Heparin Sodium (Porcine) (Heparin -) 5,000 unit SQ TID [facility] Last Admin: 12/01/17 06:11 Dose: 5,000 unit Piperacillin Sod/Tazobactam (Sod 3.375 gm/ Dextrose) 50 mls @ 100 mls/hr IVPB Q8H-IV [facility]; Protocol Last Admin: 12/01/17 10:12 Dose: 100 mls/hr Insulin Aspart (Novolog Vial Sliding Scale -) 1 vial SQ ACHS [facility]; Protocol Last Admin: 12/01/17 11:19 Dose: Not Given Insulin Detemir (Levemir Vial) 40 units SQ BID@0700,2200 [facility] Last Admin: 12/01/17 06:11 Dose: 40 units Lactobacillus Acidophilus (Bacid -) 1 tab PO DAILY [facility] Last Admin: 12/01/17 10:15 Dose: 1 tab Lisinopril (Prinivil) 2.5 mg PO DAILY [facility] Last Admin: 12/01/17 10:15 Dose: 2.5 mg Metoprolol Succinate (Toprol Xl -) 12.5 mg PO DAILY [facility] Last Admin: 12/01/17 10:14 Dose: 12.5 mg Nystatin (Nystop Powder -) 1 applic TP DAILY [facility] Ondansetron HCl (Zofran Injection) 4 mg IVPUSH Q6H PRN PRN Reason: NAUSEA - Objective Vital Signs: Vital Signs Temperature 98.7 F 12/01/17 08:58 Pulse Rate 95 H 12/01/17 08:58 Respiratory Rate 20 12/01/17 08:58 Blood Pressure 113/63 12/01/17 08:58 O2 Sat by Pulse Oximetry (%) 95 11/30/17 21:00 Constitutional: Yes: Calm, Obese Eyes: Yes: WNL HENT: Yes: WNL Neck: Yes: WNL Cardiovascular: Yes: Regular Rate and Rhythm, S1, S2 Respiratory: Yes: Diminished Gastrointestinal: Yes: Normal Bowel Sounds, Soft Extremities: Yes: WNL Edema: Yes Labs: CBC, BMP 12/01/17 07:15 12/01/17 07:15 Assessment/Plan Problem List - Problems (1) Acute on chronic systolic (congestive) heart failure Code(s): I50.23 - ACUTE ON CHRONIC SYSTOLIC (CONGESTIVE) HEART FAILURE (2) Diabetes mellitus Code(s): E11.9 - TYPE 2 DIABETES MELLITUS WITHOUT COMPLICATIONS (3) Morbid obesity with BMI of 45.0-49.9, adult Code(s): E66.01 - MORBID (SEVERE) OBESITY DUE TO EXCESS CALORIES; Z68.42 - BODY MASS INDEX (BMI) 45.0-49.9, ADULT (4) Sarcoid Code(s): D86.9 - SARCOIDOSIS, UNSPECIFIED (5) Scrotal abscess Code(s): N49.2 - INFLAMMATORY DISORDERS OF SCROTUM Assessment/Plan Scrotal Abscess Acute on likely Chronic Systolic Heart Failure Sarcoidosis Eosinophilia Psoriatic Arthritis DM Morbid Obesity - antibiotics - f/u cultures - lasix - monitor urine output, creatinine - daily weights - will order CT chest with contrast to evaluate hilar prominence but likely from sarcoidosis - will need outpt f/u including PFTs, LINWOOD level - DVT prophylaxis - sleep screen DR YANCEY
[2017-12-01] MEDS ORDERED: IBUPROFEN 400 MG TABLET (FP) PO PRN (14:59)
[2017-12-01] MEDS: NYSTATIN POWDER 100,000 UNITS/GM - 15 GM TOPICAL POWDER TP SCH (15:04)
[2017-12-01] MEDS: FUROSEMIDE 40 MG/4 ML INJECTABLE VIAL IVPUSH SCH (15:04)
--- NOTE | 2017-12-01 21:27 | CONSULT ---
Consult Consult Specialty:: Rheumatology - History of Present Illness History of Present Illness: 62 year old male with history of obesity, diabetes and previous diagnosis of sarcoidosis, psoriatic arthritis and a 6 month history of scrotal abscess, admitted with severe pain related to the abscess, diffuse aches and pains and fatigue. HPI. 1.Psoriasis, rule out psoriatic arthritis, rule pout osteoarthritis. The patient developed psoriasis when he was in his late 20's. When he was in his 40 's he developed pain in the left hip and both knees and he has mild arthralgia in hands. He has diffuse aches and pains that have been progressive accompanied by stiffness that lasts most of the day, Six years ago he was treated with Methotrextae for about 6 months resulting in improvement in the skin plaques but not in joint pain. Two weeks ago he was restarted on Methotrexate. He has controlled the pain with Ibuprofen (up to 1200 mg QID) and Acetaminophen. 2. Rule out sarcoidosis. Three years ago he developed mild dry cough and no shortness of breath. He was found to have an abnormal CXR and a subsequent CT of the chest was initially read as malignancy and then as sarcoidosis. He was seen by pulmonary consultants who treated him with low dose steroids. No biopsy or other diagnostic procedures were done. He has only mild SOB after climbing 3 flight of stairs and denies cough or phlegm. CXR on this admission: right hilar prominence, cannot rule out adenopathy, suggestion of airspace opacity in the right infrahiliar region. 3. Scrotal abscess. Since June 2017, has not respond to antibiotics. Persistenct drainage. 4. Eosinophilia (WBC: 3.79. Eorsinophils 20.8% (absolute 788), one year history of significant fatigue and he denies skin rash unrelated to psoriasis, asthma, allergies, sinusitis or fever. - History Source History Provided By: Patient Limitations to Obtaining History: No Limitations - Past Medical History Cardio/Vascular: Yes: HTN Rheumatology: Yes: Sarcoidosis, Other (psoriatic arthritis) Endocrine: Yes: Diabetes Mellitus - Past Surgical History Past Surgical History: Yes: None - Alcohol/Substance Use Hx Alcohol Use: Yes (5-6 drinks per week) History of Substance Use: reports: Marijuana - Smoking History Smoking history: Never smoked Have you smoked in the past 12 months: No - Social History ADL: Independent History of Recent Travel: Yes Home Medications - Allergies Allergies/Adverse Reactions: Allergies Allergy/AdvReac Type Severity Reaction Status Date / Time cashew nut Allergy Verified 11/29/17 05:05 pistachio nut Allergy Verified 11/29/17 05:05 - Home Medications Home Medications: Ambulatory Orders Ibuprofen [Advil -] 1,200 mg PO QID 11/29/17 Insulin Glargine,Hum.rec.anlog [Lantus] 80 unit SQ HS 11/29/17 Methotrexate [Mexate -] 2.5 mg PO WEEKLY 11/29/17 Family Disease History - Family Disease History Family Disease History: Diabetes: Mother (dementia), [place]: Father (prostate), Brother (prostate), Other: Mother Review of Systems - Review of Systems Constitutional: reports: Malaise Eyes: reports: No Symptoms HENT: reports: No Symptoms Neck: reports: No Symptoms Cardiovascular: reports: No Symptoms Respiratory: reports: No Symptoms Gastrointestinal: reports: No Symptoms Genitourinary: reports: Other (See HPI) Musculoskeletal: reports: Other (See DARNELL) Physical Exam Vital Signs: Vital Signs Temperature 98.7 F 12/01/17 08:58 Pulse Rate 95 H 12/01/17 08:58 Respiratory Rate 20 12/01/17 09:00 Blood Pressure 113/63 12/01/17 08:58 O2 Sat by Pulse Oximetry (%) 95 12/01/17 09:00 Constitutional: Yes: Moderate Distress Eyes: Yes: WNL HENT: Yes: WNL Neck: Yes: WNL Cardiovascular: Yes: WNL Respiratory: Yes: WNL Gastrointestinal: Yes: WNL Renal/: Yes: Other (scrotal abscess) Musculoskeletal: Yes: Other (Swelling of the right 2nd and 3rd PIPs and tenderness in the left elbow, both hips and both knees. Pitting edema in both legs.) Integumentary: Yes: Other (Psoriatic plaques behinf ears. Hyperpigmentation in chest., Hyperpigmentation in legs probably related to chronic venous insufficiency) Labs: CBC, BMP 12/01/17 07:15 12/01/17 07:15 Laboratory Tests 11/29/17 11/29/17 12/01/17 07:02 11:19 07:15 Eosinophils % Ferritin 416.3 H Total Bilirubin 0.4 AST 17 ALT 21 Alkaline Phosphatase 89 Creatine Kinase 57 Total Protein 6.5 Albumin 2.8 L TSH 3.16 Urine Color Yellow Urine Appearance Slcloudy Urine pH 5.0 Ur Specific [place] 1.017 Urine Protein 1+ H Urine Glucose (UA) 3+ H Urine Ketones Negative Urine Blood Negative Urine Nitrite Negative Urine Bilirubin Negative Urine Urobilinogen 2.0 Ur Leukocyte Esterase Negative Urine WBC (Auto) 3 Urine RBC (Auto) 1 Ur Epithelial Cells Rare Urine Bacteria Rare Hyaline Casts 59 Granular Casts 5 Urine Mucus Rare 12/01/17 07:15 Eosinophils % 21.5 H* Ferritin Total Bilirubin AST ALT Alkaline Phosphatase Creatine Kinase Total Protein Albumin TSH Urine Color Urine Appearance Urine pH Ur Specific [place] Urine Protein Urine Glucose (UA) Urine Ketones Urine Blood Urine Nitrite Urine Bilirubin Urine Urobilinogen Ur Leukocyte Esterase Urine WBC (Auto) Urine RBC (Auto) Ur Epithelial Cells Urine Bacteria Hyaline Casts Granular Casts Urine Mucus Problem List - Problems (1) Psoriatic arthritis Assessment/Plan: 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 He has no stigmata of chronic arthritis in hands. The patient reports diffuse aches and pains and morning stiffness. Rule out other etiology In summary, probable osteoarthritis in hips and knees, rule out psoriatic arthritis. Plan: I requested X rays of pelvis (for hips and SI joints), and knees. Code(s): L40.50 - ARTHROPATHIC PSORIASIS, UNSPECIFIED (2) Sarcoid Assessment/Plan: Sarcoidosis was Dx in the past based on abnormal CT of the chest. No histological confirmation. He also has eosinophilia and urionalysis with hyaline and granular casts. Etiology? Even though unlikely rule out vasculitis CT scan of the chest was requested. F/U by pulmonary. I will obtain ANCA. Code(s): D86.9 - SARCOIDOSIS, UNSPECIFIED (3) Scrotal abscess Assessment/Plan: Scrotal abscess. f/u by urology. Code(s): N49.2 - INFLAMMATORY DISORDERS OF SCROTUM
[2017-12-01] MEDS: IBUPROFEN 400 MG TABLET (FP) PO PRN (22:54)
[2017-12-02] MEDS ORDERED: DEXTROSE 5%-WATER - 50 ML IVPB ONE ×3 (01:36→18:26)
[2017-12-02] MEDS ORDERED: PIPERACILLIN/TAZOBACTAM 3.375 GM VIAL IVPB ONE ×3 (01:36→18:26)
[2017-12-02] MEDS: PIPERACILLIN/TAZOB 3.375 GM 3.375 GM in DEXTROSE 5%-WATER - 50 ML IVPB SCH ×3 (01:58→18:27)
[2017-12-02] MEDS: INSULIN (LEVEMIR) 100 UNITS/ML UNITS SQ SCH ×2 (06:07→23:49)
[2017-12-02] MEDS: HEPARIN NA (PORCINE) 5,000 UNITS/ML 1ML VIAL SQ SCH ×3 (06:08→23:51)
[2017-12-02] MEDS: INSULIN SLIDING SCALE (NOVOLOG) 1 VIAL SQ SCH ×4 (06:08→23:56)
[2017-12-02 08:00] LABS: BASO % 0.8 % (0-2.0); EOS % 18.7 % (0-4.5); HEMATOCRIT 34.3 % (35.4-49); HEMOGLOBIN 11.7 GM/dL (11.7-16.9); LYMPH % 9.8 % (8-40); MCH 30.2 pg (25.7-33.7); MCHC 34.1 g/dl (32.0-35.9); MEAN CELL VOLUME 88.5 fl (80-96); MONO % 15.6 % (3.8-10.2); NEUT % 55.1 % (42.8-82.8); PLATELET COUNT 236 K/MM3 (134-434); RBC 3.88 M/mm3 (4.00-5.60); WHITE BLOOD COUNT 6.3 K/mm3 (4.0-10.0)
[2017-12-02 08:06] LABS: SERUM IRON SATURATION 27 % (15-55); TOTAL IRON BINDING CAPACITY 173 ug/dL (250-450); UIBC 127 ug/dL (111-343)
[2017-12-02 09:06] LABS: ANION GAP 12 MMOL/L (8-16); BLOOD UREA NITROGEN 10 mg/dL (7-18); CALCIUM 9.1 mg/dL (8.5-10.1); CHLORIDE 103 mmol/L (98-107); CO2 26 mmol/L (21-32); CREATININE 0.9 mg/dL (0.55-1.3); GLUCOSE,RANDOM 128 mg/dL (74-106); MAGNESIUM 1.9 mg/dL (1.8-2.4); PHOSPHOROUS 4.9 mg/dL (2.5-4.9); POTASSIUM 3.9 mmol/L (3.5-5.1); SODIUM 142 mmol/L (136-145); URIC ACID 5.3 mg/dL (2.6-7.2)
[2017-12-02] MEDS: LACTOBACILLUS ACIDOPHILUS 1 TABLET PO SCH (10:08)
[2017-12-02] MEDS: metoPROLOL SUCCINATE 25 MG TAB.SR.24H (FP) PO SCH (10:08)
[2017-12-02] MEDS: LISINOPRIL 5 MG TABLET (FP) PO SCH (10:09)
[2017-12-02] MEDS: IBUPROFEN 400 MG TABLET (FP) PO PRN ×2 (10:09→20:34)
[2017-12-02] MEDS: NYSTATIN POWDER 100,000 UNITS/GM - 15 GM TOPICAL POWDER TP SCH (10:11)
[2017-12-02] MEDS: FUROSEMIDE 40 MG/4 ML INJECTABLE VIAL IVPUSH SCH ×2 (10:11→14:06)
--- NOTE | 2017-12-02 11:16 | PN ---
Progress Note (short form) - Note Progress Note: PULMONARY Denies shortness of breath, cough or wheezing. Vital Signs Period Temp Pulse Resp BP Sys/Crocker Pulse Ox Last 24 Hr 98.5 F-99.0 F 92-94 20-20 125-141/68-81 95 Gen: NAD at rest Heart: RRR Lung: decreased breath sounds at the bases Abd: soft, nontender Ext: +edema CBC, BMP 12/02/17 06:18 12/02/17 06:18 Active Medications Acetaminophen (Tylenol -) 650 mg PO Q4H PRN PRN Reason: FEVER Last Admin: 12/01/17 10:13 Dose: 650 mg Furosemide (Lasix Injection -) 40 mg IVPUSH DAILY [facility] Last Admin: 12/02/17 10:11 Dose: 40 mg Heparin Sodium (Porcine) (Heparin -) 5,000 unit SQ TID [facility] Last Admin: 12/02/17 06:08 Dose: 5,000 unit Piperacillin Sod/Tazobactam (Sod 3.375 gm/ Dextrose) 50 mls @ 100 mls/hr IVPB Q8H-IV [facility]; Protocol Last Admin: 12/02/17 10:11 Dose: 100 mls/hr Ibuprofen (Motrin -) 800 mg PO Q8H PRN PRN Reason: PAIN LEVEL 6-10 Last Admin: 12/02/17 10:09 Dose: 800 mg Insulin Aspart (Novolog Vial Sliding Scale -) 1 vial SQ ACHS [facility]; Protocol Last Admin: 12/02/17 06:08 Dose: 2 units Insulin Detemir (Levemir Vial) 40 units SQ BID@0700,2200 [facility] Last Admin: 12/02/17 06:07 Dose: 40 units Lactobacillus Acidophilus (Bacid -) 1 tab PO DAILY [facility] Last Admin: 12/02/17 10:08 Dose: 1 tab Lisinopril (Prinivil) 2.5 mg PO DAILY [facility] Last Admin: 12/02/17 10:09 Dose: 2.5 mg Metoprolol Succinate (Toprol Xl -) 12.5 mg PO DAILY [facility] Last Admin: 12/02/17 10:08 Dose: 12.5 mg Nystatin (Nystop Powder -) 1 applic TP DAILY [facility] Last Admin: 12/02/17 10:11 Dose: 1 applic Ondansetron HCl (Zofran Injection) 4 mg IVPUSH Q6H PRN PRN Reason: NAUSEA A/P Scrotal Abscess Acute on likely Chronic Systolic Heart Failure Sarcoidosis Eosinophilia Psoriatic Arthritis DM Morbid Obesity - continue antibiotics - continue lasix - monitor urine output, creatinine - daily weights - awaiting CT chest with contrast to evaluate hilar prominence but likely from sarcoidosis - will need outpt f/u including PFTs, LINWOOD level - DVT prophylaxis Problem List - Problems (1) Acute on chronic systolic (congestive) heart failure Code(s): I50.23 - ACUTE ON CHRONIC SYSTOLIC (CONGESTIVE) HEART FAILURE (2) Diabetes mellitus Code(s): E11.9 - TYPE 2 DIABETES MELLITUS WITHOUT COMPLICATIONS (3) Morbid obesity with BMI of 45.0-49.9, adult Code(s): E66.01 - MORBID (SEVERE) OBESITY DUE TO EXCESS CALORIES; Z68.42 - BODY MASS INDEX (BMI) 45.0-49.9, ADULT (4) Sarcoid Code(s): D86.9 - SARCOIDOSIS, UNSPECIFIED (5) Scrotal abscess Code(s): N49.2 - INFLAMMATORY DISORDERS OF SCROTUM
[2017-12-02] MEDS ORDERED: INSULIN (NOVOLOG) ASPART 100 UNITS/ML 10ML VIAL ONE ×2 (11:42→21:27)
--- NOTE | 2017-12-02 12:22 | PN ---
Progress Note, Physician Chief Complaint: Mr Gray says he is doing well today. Still with pain in his knees but improved with the ibuprofen. Edema in legs improved but still significant in his feet. No cp, sob, n/v. - Current Medication List Current Medications: Active Medications Acetaminophen (Tylenol -) 650 mg PO Q4H PRN PRN Reason: FEVER Last Admin: 12/01/17 10:13 Dose: 650 mg Furosemide (Lasix Injection -) 40 mg IVPUSH DAILY [facility] Last Admin: 12/02/17 10:11 Dose: 40 mg Heparin Sodium (Porcine) (Heparin -) 5,000 unit SQ TID [facility] Last Admin: 12/02/17 06:08 Dose: 5,000 unit Piperacillin Sod/Tazobactam (Sod 3.375 gm/ Dextrose) 50 mls @ 100 mls/hr IVPB Q8H-IV [facility]; Protocol Last Admin: 12/02/17 10:11 Dose: 100 mls/hr Ibuprofen (Motrin -) 800 mg PO Q8H PRN PRN Reason: PAIN LEVEL 6-10 Last Admin: 12/02/17 10:09 Dose: 800 mg Insulin Aspart (Novolog Vial Sliding Scale -) 1 vial SQ ACHS [facility]; Protocol Last Admin: 12/02/17 11:44 Dose: 2 units Insulin Detemir (Levemir Vial) 40 units SQ BID@0700,2200 [facility] Last Admin: 12/02/17 06:07 Dose: 40 units Lactobacillus Acidophilus (Bacid -) 1 tab PO DAILY [facility] Last Admin: 12/02/17 10:08 Dose: 1 tab Lisinopril (Prinivil) 2.5 mg PO DAILY [facility] Last Admin: 12/02/17 10:09 Dose: 2.5 mg Metoprolol Succinate (Toprol Xl -) 12.5 mg PO DAILY [facility] Last Admin: 12/02/17 10:08 Dose: 12.5 mg Nystatin (Nystop Powder -) 1 applic TP DAILY [facility] Last Admin: 12/02/17 10:11 Dose: 1 applic Ondansetron HCl (Zofran Injection) 4 mg IVPUSH Q6H PRN PRN Reason: NAUSEA - Objective Vital Signs: Vital Signs Temperature 37.2 C 12/02/17 10:00 Pulse Rate 94 H 12/02/17 10:00 Respiratory Rate 20 12/02/17 10:00 Blood Pressure 141/81 12/02/17 10:00 O2 Sat by Pulse Oximetry (%) 95 12/01/17 21:00 Constitutional: Yes: No Distress, Calm, Obese Cardiovascular: Yes: Regular Rate and Rhythm. No: Gallop, Murmur, Rub Respiratory: Yes: Regular, CTA Bilaterally. No: Rales, Rhonchi, Wheezes Gastrointestinal: Yes: Normal Bowel Sounds, Soft. No: Distention, Tenderness Edema: Yes Edema: LLE: 2+, RLE: 2+ Labs: CBC, BMP 12/02/17 06:18 12/02/17 06:18 Problem List - Problems (1) Acute systolic (congestive) heart failure Code(s): I50.21 - ACUTE SYSTOLIC (CONGESTIVE) HEART FAILURE (2) Scrotal abscess Code(s): N49.2 - INFLAMMATORY DISORDERS OF SCROTUM (3) Psoriatic arthritis Code(s): L40.50 - ARTHROPATHIC PSORIASIS, UNSPECIFIED (4) Diabetes mellitus Code(s): E11.9 - TYPE 2 DIABETES MELLITUS WITHOUT COMPLICATIONS (5) Sarcoid Code(s): D86.9 - SARCOIDOSIS, UNSPECIFIED (6) Syncope Code(s): R55 - SYNCOPE AND COLLAPSE (7) Morbid obesity with BMI of 45.0-49.9, adult Code(s): E66.01 - MORBID (SEVERE) OBESITY DUE TO EXCESS CALORIES; Z68.42 - BODY MASS INDEX (BMI) 45.0-49.9, ADULT (8) Bilateral lower extremity edema Code(s): R60.0 - LOCALIZED EDEMA Assessment/Plan (1) Scrotal abscess Assessment/Plan: -continue zosyn per ID -discharge planning when able to transition to oral antibiotics for full course Code(s): N49.2 - INFLAMMATORY DISORDERS OF SCROTUM (2) Acute systolic CHF exacerbation -continue metoprolol and lisinopril -will increase lasix to 40mg IV bid for better diuresis -will d/w cardiology lasix dose on discharge (3) Psoriatic arthritis Assessment/Plan: -appreciate rheumatology consult -agree with bilateral knee x-rays -continue low dose ibuprofen -recognize patient is high risk with CAD and diabetes but needs pain control so will monitor closely Code(s): L40.50 - ARTHROPATHIC PSORIASIS, UNSPECIFIED (4) Diabetes mellitus Assessment/Plan: -HgbA1c 10.2 -well controlled here -will increase levemir to 42 units bid since requires about 4-8 units SSI -continue diabetic diet -will discharge on lantus 84 units but may benefit from bid dosing secondary to obesity -suspect will need further increase in insulin when returning to his normal diet Code(s): E11.9 - TYPE 2 DIABETES MELLITUS WITHOUT COMPLICATIONS (5) Sarcoid Assessment/Plan: -appreciate pulmonary assistance Code(s): D86.9 - SARCOIDOSIS, UNSPECIFIED (6) Syncope Assessment/Plan: -has not recurred Code(s): R55 - SYNCOPE AND COLLAPSE (7) Morbid obesity with BMI of 45.0-49.9, adult Assessment/Plan: -outpatient weight loss plan Code(s): E66.01 - MORBID (SEVERE) OBESITY DUE TO EXCESS CALORIES; Z68.42 - BODY MASS INDEX (BMI) 45.0-49.9, ADULT (8) Bilateral lower extremity edema Assessment/Plan: -secondary to CH -management as above Code(s): R60.0 - LOCALIZED EDEMA
--- NOTE | 2017-12-02 14:58 | PN ---
Progress Note (short form) - Note Progress Note: s: edema improving, still has in feet. no chest pain, palps, dizzy, lightheaded Current Medications Acetaminophen (Tylenol -) 650 mg PO Q4H PRN PRN Reason: FEVER Last Admin: 12/01/17 10:13 Dose: 650 mg Furosemide (Lasix Injection -) 40 mg IVPUSH BID@0600,1400 [facility] Last Admin: 12/02/17 14:06 Dose: 40 mg Heparin Sodium (Porcine) (Heparin -) 5,000 unit SQ TID [facility] Last Admin: 12/02/17 14:06 Dose: 5,000 unit Piperacillin Sod/Tazobactam (Sod 3.375 gm/ Dextrose) 50 mls @ 100 mls/hr IVPB Q8H-IV [facility]; Protocol Last Admin: 12/02/17 10:11 Dose: 100 mls/hr Ibuprofen (Motrin -) 800 mg PO Q8H PRN PRN Reason: PAIN LEVEL 6-10 Last Admin: 12/02/17 10:09 Dose: 800 mg Insulin Aspart (Novolog Vial Sliding Scale -) 1 vial SQ ACHS [facility]; Protocol Last Admin: 12/02/17 11:44 Dose: 2 units Insulin Detemir (Levemir Vial) 42 units SQ BID@0700,2200 [facility] Lactobacillus Acidophilus (Bacid -) 1 tab PO DAILY [facility] Last Admin: 12/02/17 10:08 Dose: 1 tab Lisinopril (Prinivil) 2.5 mg PO DAILY [facility] Last Admin: 12/02/17 10:09 Dose: 2.5 mg Metoprolol Succinate (Toprol Xl -) 12.5 mg PO DAILY [facility] Last Admin: 12/02/17 10:08 Dose: 12.5 mg Nystatin (Nystop Powder -) 1 applic TP DAILY [facility] Last Admin: 12/02/17 10:11 Dose: 1 applic Ondansetron HCl (Zofran Injection) 4 mg IVPUSH Q6H PRN PRN Reason: NAUSEA Vital Signs Vital Signs Period Temp Pulse Resp BP Sys/Crocker Pulse Ox Last 24 Hr 98.5 F-99.0 F 92-94 20-20 125-141/68-81 95 Constitutional: Yes: Well Nourished, No Distress, Calm Eyes: Yes: Conjunctiva Clear, EOM Intact HENT: Yes: Atraumatic, Normocephalic Neck: Yes: Supple, Trachea Midline Respiratory: Yes: Regular, CTA Bilaterally Gastrointestinal: Yes: Normal Bowel Sounds, Soft Cardiovascular: Yes: Regular Rate and Rhythm JVD: Yes Heart Sounds: Yes: S1, S2 Musculoskeletal: Yes: WNL Extremities: Yes: WNL Edema: Yes Edema: LLE: 2+, RLE: 2+ Peripheral Pulses: 2+ Left Doralis Pedis, 2+ Right Dorsalis Pedis Integumentary: Yes: WNL Neurological: Yes: Alert, Oriented ...Motor Strength: WNL Psychiatric: Yes: Alert, Oriented Assessment/Plan Carotid dopplers 11/2017 intimal thickening of R CCA and LCCA without sig stenosis. Echo 11/2017 EF 35-40%, tr-mild MR, nl RV, nl RV function EKG: sinus, old ant infarct 62M h/o sarcoidosis, psoriatic arthritis p/w scrotal abscess, leg pain, edema with new cardiomyopathy cardiomyopathy - EF 35-40% on echo, edema, orthopnea - etiology may be related to sarcoid, will discuss ischemic testing as outpatient - advised to stop alcohol use - lasix increased to 40 mg IV BID, edema improving, stable cr, continue - recommend daily standing weights, monitor Cr, I/Os - continue metoprolol succinate 12.5 mg daily, lisinopril 2.5 mg daily syncope - per history consistent with vasovagal, hypovolemia Scrotal abscess - on abx, manage per ID and primary sarcoidosis, psoriatic arthritis - rheum consulted, on methotrexate
--- NOTE | 2017-12-02 15:42 | PN ---
Progress Note, Physician History of Present Illness: stable doing well still having some discharge from the wound - Current Medication List Current Medications: Active Medications Acetaminophen (Tylenol -) 650 mg PO Q4H PRN PRN Reason: FEVER Last Admin: 12/01/17 10:13 Dose: 650 mg Furosemide (Lasix Injection -) 40 mg IVPUSH BID@0600,1400 [facility] Last Admin: 12/02/17 14:06 Dose: 40 mg Heparin Sodium (Porcine) (Heparin -) 5,000 unit SQ TID [facility] Last Admin: 12/02/17 14:06 Dose: 5,000 unit Piperacillin Sod/Tazobactam (Sod 3.375 gm/ Dextrose) 50 mls @ 100 mls/hr IVPB Q8H-IV [facility]; Protocol Last Admin: 12/02/17 10:11 Dose: 100 mls/hr Ibuprofen (Motrin -) 800 mg PO Q8H PRN PRN Reason: PAIN LEVEL 6-10 Last Admin: 12/02/17 10:09 Dose: 800 mg Insulin Aspart (Novolog Vial Sliding Scale -) 1 vial SQ ACHS [facility]; Protocol Last Admin: 12/02/17 11:44 Dose: 2 units Insulin Detemir (Levemir Vial) 42 units SQ BID@0700,2200 [facility] Lactobacillus Acidophilus (Bacid -) 1 tab PO DAILY [facility] Last Admin: 12/02/17 10:08 Dose: 1 tab Lisinopril (Prinivil) 2.5 mg PO DAILY [facility] Last Admin: 12/02/17 10:09 Dose: 2.5 mg Metoprolol Succinate (Toprol Xl -) 12.5 mg PO DAILY [facility] Last Admin: 12/02/17 10:08 Dose: 12.5 mg Nystatin (Nystop Powder -) 1 applic TP DAILY [facility] Last Admin: 12/02/17 10:11 Dose: 1 applic Ondansetron HCl (Zofran Injection) 4 mg IVPUSH Q6H PRN PRN Reason: NAUSEA - Objective Vital Signs: Vital Signs Temperature 98.9 F 12/02/17 10:00 Pulse Rate 94 H 12/02/17 10:00 Respiratory Rate 20 12/02/17 10:00 Blood Pressure 141/81 12/02/17 10:00 O2 Sat by Pulse Oximetry (%) 95 12/01/17 21:00 Constitutional: Yes: No Distress, Calm, Obese Cardiovascular: Yes: Regular Rate and Rhythm Respiratory: Yes: Regular, CTA Bilaterally Gastrointestinal: Yes: Normal Bowel Sounds, Soft Genitourinary: Yes: Other (scrotal area looks good) Musculoskeletal: Yes: WNL Extremities: Yes: WNL Neurological: Yes: Alert, Oriented Psychiatric: Yes: Alert, Oriented Labs: CBC, BMP 12/02/17 06:18 12/02/17 06:18 Assessment/Plan Problem List - Problems (1) Acute systolic (congestive) heart failure Code(s): I50.21 - ACUTE SYSTOLIC (CONGESTIVE) HEART FAILURE (2) Scrotal abscess Code(s): N49.2 - INFLAMMATORY DISORDERS OF SCROTUM (3) Psoriatic arthritis Code(s): L40.50 - ARTHROPATHIC PSORIASIS, UNSPECIFIED (4) Diabetes mellitus Code(s): E11.9 - TYPE 2 DIABETES MELLITUS WITHOUT COMPLICATIONS (5) Sarcoid Code(s): D86.9 - SARCOIDOSIS, UNSPECIFIED (6) Syncope Code(s): R55 - SYNCOPE AND COLLAPSE (7) Morbid obesity with BMI of 45.0-49.9, adult Code(s): E66.01 - MORBID (SEVERE) OBESITY DUE TO EXCESS CALORIES; Z68.42 - BODY MASS INDEX (BMI) 45.0-49.9, ADULT (8) Bilateral lower extremity edema Code(s): R60.0 - LOCALIZED EDEMA plan continue abx will see if patient can be switched to oral tomorrow rest as per the team monitor drainage
[2017-12-03] MEDS ORDERED: DEXTROSE 5%-WATER - 50 ML IVPB ONE ×2 (01:04→10:42)
[2017-12-03] MEDS ORDERED: PIPERACILLIN/TAZOBACTAM 3.375 GM VIAL IVPB ONE ×2 (01:04→10:42)
[2017-12-03] MEDS: PIPERACILLIN/TAZOB 3.375 GM 3.375 GM in DEXTROSE 5%-WATER - 50 ML IVPB SCH ×2 (01:20→10:46)
[2017-12-03] MEDS: HEPARIN NA (PORCINE) 5,000 UNITS/ML 1ML VIAL SQ SCH ×2 (06:23→13:10)
[2017-12-03] MEDS: FUROSEMIDE 40 MG/4 ML INJECTABLE VIAL IVPUSH SCH ×2 (06:23→14:11)
[2017-12-03] MEDS: INSULIN (LEVEMIR) 100 UNITS/ML UNITS SQ SCH (06:24)
[2017-12-03] MEDS: INSULIN SLIDING SCALE (NOVOLOG) 1 VIAL SQ SCH ×2 (06:33→11:42)
[2017-12-03] MEDS: IBUPROFEN 400 MG TABLET (FP) PO PRN (07:03)
[2017-12-03 07:33] LABS: EOS % 16.2 % (0-4.5); HEMATOCRIT 34.2 % (35.4-49); HEMOGLOBIN 11.4 GM/dL (11.7-16.9); LYMPH % 11.2 % (8-40); MCH 29.5 pg (25.7-33.7); MCHC 33.4 g/dl (32.0-35.9); MEAN CELL VOLUME 88.2 fl (80-96); MEAN PLT VOLUME 7.1 fl (7.5-11.1); MONO % 15.3 % (3.8-10.2); NEUT % 56.3 % (42.8-82.8); PLATELET COUNT 251 K/MM3 (134-434); RBC 3.88 M/mm3 (4.00-5.60); RDW 12.9 % (11.9-15.9); WHITE BLOOD COUNT 7.1 K/mm3 (4.0-10.0)
[2017-12-03 08:27] LABS: ANION GAP 13 MMOL/L (8-16); BLOOD UREA NITROGEN 11 mg/dL (7-18); CALCIUM 9.2 mg/dL (8.5-10.1); CHLORIDE 99 mmol/L (98-107); CO2 26 mmol/L (21-32); GLUCOSE,RANDOM 130 mg/dL (74-106); MAGNESIUM 1.8 mg/dL (1.8-2.4); PHOSPHOROUS 4.9 mg/dL (2.5-4.9); POTASSIUM 3.6 mmol/L (3.5-5.1); SODIUM 138 mmol/L (136-145)
[2017-12-03 10:04] LABS: URINE APPEARANCE CLEAR; URINE BILIRUBIN NEGATIVE (<2.0 mg/dL); URINE COLOR YELLOW; URINE GLUCOSE (UA) NEGATIVE (NEGATIVE); URINE KETONE NEGATIVE (NEGATIVE); URINE LEUK ESTERASE NEGATIVE (NEGATIVE); URINE NITRITE NEGATIVE (NEGATIVE); URINE PROTEIN NEGATIVE (NEGATIVE); URINE UROBILINOGEN NEGATIVE mg/dL (0.2-1.0)
[2017-12-03] MEDS: LISINOPRIL 5 MG TABLET (FP) PO SCH (10:44)
[2017-12-03] MEDS: LACTOBACILLUS ACIDOPHILUS 1 TABLET PO SCH (10:44)
[2017-12-03] MEDS: metoPROLOL SUCCINATE 25 MG TAB.SR.24H (FP) PO SCH (10:44)
[2017-12-03] MEDS: NYSTATIN POWDER 100,000 UNITS/GM - 15 GM TOPICAL POWDER TP SCH (10:46)
[2017-12-03 11:03] VITALS: BP 114/59; PULSE 87; TEMP 98.8
--- NOTE | 2017-12-03 12:06 | PN ---
Progress Note (short form) - Note Progress Note: PULMONARY Denies shortness of breath, cough or wheezing. Sitting in chair appears comfortable VSS/afebrile Gen: NAD at rest Heart: RRR Lung: decreased breath sounds at the bases Abd: soft, nontender Ext: +edema right > left Active Medications noted labs/meds/notes reviewed A/P Scrotal Abscess Acute on likely Chronic Systolic Heart Failure Sarcoidosis Eosinophilia Psoriatic Arthritis DM Morbid Obesity - continue antibiotics - continue lasix - monitor urine output, creatinine - daily weights - awaiting CT chest with contrast to evaluate hilar prominence but likely from sarcoidosis - will need outpt f/u including PFTs, LINWOOD level - DVT prophylaxis Yary MADERA MD
--- NOTE | 2017-12-03 12:53 | PN ---
Progress Note, Physician History of Present Illness: patient stable still wiht some drainage no complaints - Current Medication List Current Medications: Active Medications Acetaminophen (Tylenol -) 650 mg PO Q4H PRN PRN Reason: FEVER Last Admin: 12/01/17 10:13 Dose: 650 mg Furosemide (Lasix Injection -) 40 mg IVPUSH BID@0600,1400 [facility] Last Admin: 12/03/17 06:23 Dose: 40 mg Heparin Sodium (Porcine) (Heparin -) 5,000 unit SQ TID [facility] Last Admin: 12/03/17 06:23 Dose: 5,000 unit Piperacillin Sod/Tazobactam (Sod 3.375 gm/ Dextrose) 50 mls @ 100 mls/hr IVPB Q8H-IV [facility]; Protocol Last Admin: 12/03/17 10:46 Dose: 100 mls/hr Ibuprofen (Motrin -) 800 mg PO Q8H PRN PRN Reason: PAIN LEVEL 6-10 Last Admin: 12/03/17 07:03 Dose: 800 mg Insulin Aspart (Novolog Vial Sliding Scale -) 1 vial SQ ACHS [facility]; Protocol Last Admin: 12/03/17 11:42 Dose: 4 units Insulin Detemir (Levemir Vial) 42 units SQ BID@0700,2200 [facility] Last Admin: 12/03/17 06:24 Dose: 42 units Lactobacillus Acidophilus (Bacid -) 1 tab PO DAILY [facility] Last Admin: 12/03/17 10:44 Dose: 1 tab Lisinopril (Prinivil) 2.5 mg PO DAILY [facility] Last Admin: 12/03/17 10:44 Dose: 2.5 mg Metoprolol Succinate (Toprol Xl -) 12.5 mg PO DAILY [facility] Last Admin: 12/03/17 10:44 Dose: 12.5 mg Nystatin (Nystop Powder -) 1 applic TP DAILY [facility] Last Admin: 12/03/17 10:46 Dose: 1 applic Ondansetron HCl (Zofran Injection) 4 mg IVPUSH Q6H PRN PRN Reason: NAUSEA - Objective Vital Signs: Vital Signs Temperature 98.8 F 12/03/17 10:00 Pulse Rate 87 12/03/17 10:00 Respiratory Rate 20 12/03/17 10:00 Blood Pressure 114/59 L 12/03/17 10:00 O2 Sat by Pulse Oximetry (%) 95 12/02/17 21:00 Constitutional: Yes: No Distress, Calm, Obese Respiratory: Yes: Regular, CTA Bilaterally Gastrointestinal: Yes: Normal Bowel Sounds, Soft Musculoskeletal: Yes: WNL Extremities: Yes: WNL Neurological: Yes: Alert, Oriented Psychiatric: Yes: Alert, Oriented Labs: CBC, BMP 12/03/17 06:00 12/03/17 06:00 Assessment/Plan Problem List - Problems (1) Acute systolic (congestive) heart failure Code(s): I50.21 - ACUTE SYSTOLIC (CONGESTIVE) HEART FAILURE (2) Scrotal abscess Code(s): N49.2 - INFLAMMATORY DISORDERS OF SCROTUM (3) Psoriatic arthritis Code(s): L40.50 - ARTHROPATHIC PSORIASIS, UNSPECIFIED (4) Diabetes mellitus Code(s): E11.9 - TYPE 2 DIABETES MELLITUS WITHOUT COMPLICATIONS (5) Sarcoid Code(s): D86.9 - SARCOIDOSIS, UNSPECIFIED (6) Syncope Code(s): R55 - SYNCOPE AND COLLAPSE (7) Morbid obesity with BMI of 45.0-49.9, adult Code(s): E66.01 - MORBID (SEVERE) OBESITY DUE TO EXCESS CALORIES; Z68.42 - BODY MASS INDEX (BMI) 45.0-49.9, ADULT (8) Bilateral lower extremity edema Code(s): R60.0 - LOCALIZED EDEMA plan continue abx patient can be switched to oral augmentin for another 10 days rest as per the team
[2017-12-03 13:01] LABS: ANISOCYTOSIS 0; MACROCYTOSIS 0; PLATELET ESTIMATE NORMAL
--- NOTE | 2017-12-03 13:32 | PN ---
Progress Note (short form) - Note Progress Note: s: edema improved. no chest pain, palps, dizzy, lightheaded Current Medications Acetaminophen (Tylenol -) 650 mg PO Q4H PRN PRN Reason: FEVER Last Admin: 12/01/17 10:13 Dose: 650 mg Furosemide (Lasix Injection -) 40 mg IVPUSH BID@0600,1400 [facility] Last Admin: 12/03/17 06:23 Dose: 40 mg Heparin Sodium (Porcine) (Heparin -) 5,000 unit SQ TID [facility] Last Admin: 12/03/17 13:10 Dose: 5,000 unit Piperacillin Sod/Tazobactam (Sod 3.375 gm/ Dextrose) 50 mls @ 100 mls/hr IVPB Q8H-IV [facility]; Protocol Last Admin: 12/03/17 10:46 Dose: 100 mls/hr Ibuprofen (Motrin -) 800 mg PO Q8H PRN PRN Reason: PAIN LEVEL 6-10 Last Admin: 12/03/17 07:03 Dose: 800 mg Insulin Aspart (Novolog Vial Sliding Scale -) 1 vial SQ ACHS [facility]; Protocol Last Admin: 12/03/17 11:42 Dose: 4 units Insulin Detemir (Levemir Vial) 42 units SQ BID@0700,2200 [facility] Last Admin: 12/03/17 06:24 Dose: 42 units Lactobacillus Acidophilus (Bacid -) 1 tab PO DAILY [facility] Last Admin: 12/03/17 10:44 Dose: 1 tab Lisinopril (Prinivil) 2.5 mg PO DAILY [facility] Last Admin: 12/03/17 10:44 Dose: 2.5 mg Metoprolol Succinate (Toprol Xl -) 12.5 mg PO DAILY [facility] Last Admin: 12/03/17 10:44 Dose: 12.5 mg Nystatin (Nystop Powder -) 1 applic TP DAILY [facility] Last Admin: 12/03/17 10:46 Dose: 1 applic Ondansetron HCl (Zofran Injection) 4 mg IVPUSH Q6H PRN PRN Reason: NAUSEA Vital Signs Vital Signs Period Temp Pulse Resp BP Sys/Crocker Pulse Ox Last 24 Hr 98.8 F-99.9 F 87-103 20-20 114-154/59-77 95 Constitutional: Yes: Well Nourished, No Distress, Calm Eyes: Yes: Conjunctiva Clear, EOM Intact HENT: Yes: Atraumatic, Normocephalic Neck: Yes: Supple, Trachea Midline Respiratory: Yes: Regular, CTA Bilaterally Gastrointestinal: Yes: Normal Bowel Sounds, Soft Cardiovascular: Yes: Regular Rate and Rhythm JVD: Yes Heart Sounds: Yes: S1, S2 Musculoskeletal: Yes: WNL Extremities: Yes: WNL Edema: Yes Edema: LLE: 2+, RLE: 2+ Peripheral Pulses: 2+ Left Doralis Pedis, 2+ Right Dorsalis Pedis Integumentary: Yes: WNL Neurological: Yes: Alert, Oriented ...Motor Strength: WNL Psychiatric: Yes: Alert, Oriented Assessment/Plan Carotid dopplers 11/2017 intimal thickening of R CCA and LCCA without sig stenosis. Echo 11/2017 EF 35-40%, tr-mild MR, nl RV, nl RV function EKG: sinus, old ant infarct 62M h/o sarcoidosis, psoriatic arthritis p/w scrotal abscess, leg pain, edema with new cardiomyopathy cardiomyopathy - EF 35-40% on echo, edema, orthopnea - etiology may be related to sarcoid, will discuss ischemic testing, possible cardiac MRI as outpatient - advised to stop alcohol use - improved edema on lasix 40 mg IV BID - lasix 40 mg PO daily on discharge - recommend daily standing weights, monitor Cr, I/Os - continue metoprolol succinate 12.5 mg daily, lisinopril 2.5 mg daily syncope - per history consistent with vasovagal, hypovolemia Scrotal abscess - on abx, manage per ID and primary sarcoidosis, psoriatic arthritis - rheum consulted, on methotrexate
--- NOTE | 2017-12-03 14:29 | DS ---
Physical Examination Vital Signs: Vital Signs Temperature 37.1 C 12/03/17 10:00 Pulse Rate 87 12/03/17 10:00 Respiratory Rate 20 12/03/17 10:00 Blood Pressure 114/59 L 12/03/17 10:00 O2 Sat by Pulse Oximetry (%) 95 12/02/17 21:00 Constitutional: Yes: No Distress, Calm, Obese Cardiovascular: Yes: Regular Rate and Rhythm. No: Gallop, Murmur, Rub Respiratory: Yes: Regular, CTA Bilaterally. No: Rales, Rhonchi, Wheezes Gastrointestinal: Yes: Normal Bowel Sounds, Soft. No: Distention, Tenderness Extremities: Yes: WNL Edema: No Labs: CBC, BMP 12/03/17 06:00 12/03/17 06:00 Discharge Summary Reason For Visit: ABCESS OF BOTH SCROTUM, EDEMA OF BOTH LOWER EXTREM Current Active Problems Acute on chronic systolic (congestive) heart failure (Acute) Acute systolic (congestive) heart failure (Acute) Bilateral lower extremity edema (Acute) Diabetes mellitus (Acute) Morbid obesity with BMI of 45.0-49.9, adult (Acute) Psoriatic arthritis (Acute) Sarcoid (Acute) Scrotal abscess (Acute) Syncope (Acute) Hospital Course: (1) Acute systolic (congestive) heart failure Code(s): I50.21 - ACUTE SYSTOLIC (CONGESTIVE) HEART FAILURE (2) Scrotal abscess Code(s): N49.2 - INFLAMMATORY DISORDERS OF SCROTUM (3) Psoriatic arthritis Code(s): L40.50 - ARTHROPATHIC PSORIASIS, UNSPECIFIED (4) Diabetes mellitus Code(s): E11.9 - TYPE 2 DIABETES MELLITUS WITHOUT COMPLICATIONS (5) Sarcoid Code(s): D86.9 - SARCOIDOSIS, UNSPECIFIED (6) Syncope Code(s): R55 - SYNCOPE AND COLLAPSE (7) Morbid obesity with BMI of 45.0-49.9, adult Code(s): E66.01 - MORBID (SEVERE) OBESITY DUE TO EXCESS CALORIES; Z68.42 - BODY MASS INDEX (BMI) 45.0-49.9, ADULT (8) Bilateral lower extremity edema Code(s): R60.0 - LOCALIZED EDEMA Mr Gray is a very pleasant 62 year old male who came in with scrotal abscess and poorly controlled diabetes and was found to have CHF exacebation. He was admitted to the hospital and seen by ID and urology. No surgery was indicated and he was placed on zosyn. He improved. His lantus was changed to levemir secondary to formulary and his glucose remained controlled, he was counselled on his diet and should follow up with a corporate claims examiner as an outpatient. He was seen by pulmonary for sarcoid and rheumatology for psoriatic arthritis. He can restart methotrexate after he finishes his course of antibiotics. His CHF was found on ECHO is new. he was diuresed and started on metoprolol and lisinopril. He is currently stable for discharge home with close follow up. 35 minutes spent in preparation of this discharge Condition: Good - Instructions Diet, Activity, Other Instructions: diabetic diet. Resume previous activity. Referrals: Tripp Claros MD [Staff Physician] - Marilee Ford MD [Staff Physician] - Natalia Schaefer MD [Primary Care Provider] - 1 Week Carrington Rushing MD, MD [Staff Physician] - Disposition: HOME - Home Medications Comprehensive Discharge Medication List: Ambulatory Orders Insulin Glargine,Hum.rec.anlog [Lantus] 80 unit SQ HS 11/29/17 Methotrexate [Mexate -] 2.5 mg PO WEEKLY 11/29/17 Amox-Tr/K Cl [Augmentin - 875Mg Tablet] 1 tab PO BID #20 tablet 12/03/17 Furosemide [Lasix -] 40 mg PO DAILY #30 tablet 12/03/17 Ibuprofen [Motrin -] 800 mg PO Q8H PRN #60 tablet 12/03/17 Lactobacillus Acidophilus [Bacid -] 1 tab PO DAILY #10 tab 12/03/17 Lisinopril [Prinivil] 2.5 mg PO DAILY #30 tablet 12/03/17 Metoprolol Succinate [Toprol XL -] 12.5 mg PO DAILY #30 tab.sr.24h 12/03/17 Nystatin Powder [Nystop Powder -] 1 applic TP DAILY #1 bottle 12/03/17
[2017-12-07 00:07] LABS: ATYPICAL pANCA <1:20 titer (Neg:<1:20); C-ANCA <1:20 titer (Neg:<1:20); P-ANCA <1:20 titer (Neg:<1:20)
== END 2017-12-03 15:50 | disposition home or self-care (01) | DRG 194 ==
LOC: JER 04:11 → JERBED 11:58 → J6S 21:14
PROVIDERS: ADMIT Internal Medicine; ATTEND Internal Medicine
DX: I50.23 Acute on chronic systolic (congestive) heart failure (principal); I42.9 Cardiomyopathy, unspecified; E66.01 Morbid (severe) obesity due to excess calories; Z68.43 Body mass index [BMI] 50.0-59.9, adult; L40.50 Arthropathic psoriasis, unspecified; D86.9 Sarcoidosis, unspecified; N49.2 Inflammatory disorders of scrotum; R55 Syncope and collapse; E11.9 Type 2 diabetes mellitus without complications; F17.210 Nicotine dependence, cigarettes, uncomplicated; F12.10 Cannabis abuse, uncomplicated; Z79.4 Long term (current) use of insulin
CPT/HCPCS: 36415; 71046-TC-FY; 72170-TC-FY; 73562-TC-LT-FY; 73562-TC-RT-FY; 76870-TC; 80048; 80053; 81003; 81015; 82550; 82728; 82962; 83036; 83520; 83540; 83550; 83735; 83880; 84100; 84443; 84484; 84550; 85025; 85651; 86256; 87040; 87070; 87077; 87086; 87205; 90688; 93005; 93010; 93306-TC; 93880-TC; 93970-TC; 97116-GP; 97162-GP; 99284-25; G0008; J1644

== ENCOUNTER 2018-01-14 14:04 | Inpatient (IN) | payer OTHER ==
[2018-01-14] MEDS ORDERED: SODIUM CHLORIDE 1,000 ML IV STA (15:03)
[2018-01-14 15:37] LABS: BASO % 1.4 % (0-2.0); EOS % 14.4 % (0-4.5); HEMATOCRIT 35.8 % (35.4-49); HEMOGLOBIN 12.4 GM/dL (11.7-16.9); LYMPH % 12.2 % (8-40); MCH 30.3 pg (25.7-33.7); MCHC 34.7 g/dl (32.0-35.9); MEAN CELL VOLUME 87.3 fl (80-96); MEAN PLT VOLUME 7.8 fl (7.5-11.1); MONO % 13.7 % (3.8-10.2); NEUT % 58.3 % (42.8-82.8); PLATELET COUNT 235 K/MM3 (134-434); RDW 13.4 % (11.9-15.9); WHITE BLOOD COUNT 5.6 K/mm3 (4.0-10.0)
[2018-01-14 15:54] LABS: ALBUMIN 3.5 g/dl (3.4-5.0); ALK PHOS 103 U/L (45-117); ANION GAP 13 MMOL/L (8-16); BILIRUBIN,TOTAL 0.4 mg/dL (0.2-1); BLOOD UREA NITROGEN 38 mg/dL (7-18); CALCIUM 9.2 mg/dL (8.5-10.1); CHLORIDE 102 mmol/L (98-107); CO2 21 mmol/L (22-28); CREATININE 1.9 mg/dL (0.55-1.3); GLUCOSE,RANDOM 217 mg/dL (74-106); POTASSIUM 3.8 mmol/L (3.5-5.1); SGOT/AST 16 U/L (15-37); SGPT/ALT 19 U/L (13-61); SODIUM 135 mmol/L (136-145); TOT PROT 6.9 g/dl (6.4-8.2)
--- NOTE | 2018-01-14 17:35 | PDOC ---
History of Present Illness - General Chief Complaint: Blood Pressure Problem Stated Complaint: BLOOD PRESSURE PROBLEM Time Seen by Provider: 01/14/18 14:21 History Source: Patient Exam Limitations: No Limitations - History of Present Illness Initial Comments: 01/14/18 15:41 63-year-old male with history of diabetes, arthritis, hypertension, morbid obesity, sarcoid, and heart failure presents to ED after being sent over by his PCP for low blood pressure noted on exam. Patient states what they're for medical clearance for recurring draining left scrotal abscess which she has had for about 6 weeks. Patient also states he lost approximately 35 pounds in the past 2 months unintentionally. Patient denies fever, chills, difficulty urinating, abdominal pain but does state decreased appetite and weakness. Timing/Duration: intermittent Severity: mild Associated Symptoms: reports: denies symptoms Past History - Travel Traveled outside of the country in the last 30 days: No - Past Medical History Allergies/Adverse Reactions: Allergies Allergy/AdvReac Type Severity Reaction Status Date / Time cashew nut Allergy Verified 01/14/18 16:03 pistachio nut Allergy Verified 01/14/18 16:03 Home Medications: Ambulatory Orders Insulin Glargine,Hum.rec.anlog [Lantus] 80 unit SQ HS 11/29/17 Methotrexate [Mexate -] 2.5 mg PO WEEKLY 11/29/17 Amox-Tr/K Cl [Augmentin - 875Mg Tablet] 1 tab PO BID #20 tablet 12/03/17 Furosemide [Lasix -] 40 mg PO DAILY #30 tablet 12/03/17 Ibuprofen [Motrin -] 800 mg PO Q8H PRN #60 tablet 12/03/17 Lactobacillus Acidophilus [Bacid -] 1 tab PO DAILY #10 tab 12/03/17 Lisinopril [Prinivil] 2.5 mg PO DAILY #30 tablet 12/03/17 Metoprolol Succinate [Toprol XL -] 12.5 mg PO DAILY #30 tab.sr.24h 12/03/17 Nystatin Powder [Nystop Powder -] 1 applic TP DAILY #1 bottle 12/03/17 COPD: No CHF: No Diabetes: Yes (IDDM) HTN: Yes Hypercholesterolemia: Yes - Immunization History Immunization Up to Date: Yes - Suicide/Smoking/Psychosocial Hx Smoking History: Never smoked Have you smoked in the past 12 months: No Information on smoking cessation initiated: No Hx Alcohol Use: No Drug/Substance Use Hx: No Substance Use Type: None Hx Substance Use Treatment: No Patient Lives Alone: No Lives with/in: spouse/SO Review of Systems - Review of Systems Able to Perform ROS?: No Is the patient limited [place] proficient: No Constitutional: Yes: Loss of Appetite, Weakness HEENTM: No: Symptoms Reported Respiratory: No: Symptoms reported Cardiac (ROS): No: Symptoms Reported ABD/GI: No: Symptoms Reported : Yes: Testicular Pain (left testicle) Integumentary: Yes: Symptoms Reported Neurological: No: Symptoms reported Endocrine: No: Symptoms Reported Hematologic/Lymphatic: No: Symptoms Reported *Physical Exam - Vital Signs Last Vital Signs Temp Pulse Resp BP Pulse Ox 97.7 F 108 H 20 98/57 L 99 01/14/18 14:07 01/14/18 14:07 01/14/18 14:07 01/14/18 14:07 01/14/18 14:07 - Physical Exam General Appearance: Yes: Nourished, Appropriately Dressed. No: Apparent Distress HEENT: positive: EOMI, KEVEN, TMs Normal, Pharynx Normal. negative: Pale Conjunctivae Neck: positive: Supple Respiratory/Chest: positive: Lungs Clear, Normal Breath Sounds. negative: Respiratory Distress, Accessory Muscle Use Cardiovascular: positive: Regular Rhythm, Tachycardia. negative: Murmur Gastrointestinal/Abdominal: positive: Soft. negative: Tenderness Extremity: positive: Normal Capillary Refill. negative: Pedal Edema Integumentary: positive: Other (noted small opening to left inguinal fold lateral of testicles drsaining foul smelling purulent drainage. noted small papule to lt lower back with whitish center) Neurologic: positive: Normal Mood/Affect, Motor Strength 5/5 ED Treatment Course - LABORATORY CBC & Chemistry Diagram: 01/14/18 15:09 01/14/18 15:09 - ADDITIONAL ORDERS Additional order review: Laboratory Results 01/14/18 01/14/18 15:09 15:09 Sodium 135 L Potassium 3.8 Chloride 102 Carbon Dioxide 21 L Anion Gap 13 BUN 38 H Creatinine 1.9 H Creat Clearance w eGFR 36.22 Random Glucose 217 H Lactic Acid 1.8 Calcium 9.2 Magnesium 2.0 Total Bilirubin 0.4 AST 16 ALT 19 Alkaline Phosphatase 103 Total Protein 6.9 Albumin 3.5 01/14/18 15:09 RBC 4.10 MCV 87.3 MCHC 34.7 RDW 13.4 MPV 7.8 Neutrophils % 58.3 Lymphocytes % 12.2 Monocytes % 13.7 H Eosinophils % 14.4 H Basophils % 1.4 - RADIOLOGY Radiology Studies Ordered: Category Date Time Status SCROTUM AND CONTENTS US [US] Stat Ultrasound 01/14/18 14:58 Completed - Medications Given in the ED: ED Medications Discontinued Medications Generic Name Dose Route Start Last Admin Trade Name Dipesh PRN Reason Stop Dose Admin Sodium Chloride 1,000 mls @ 1,000 mls/hr 01/14/18 15:03 01/14/18 15:29 Normal Saline - IV 01/14/18 16:02 1,000 mls/hr ASDIR STA Administration Medical Decision Making - Medical Decision Making 01/14/18 15:36 CC: weakness, drained left scrotal wound, 35 lb weight loss in 2 months ( unintentional) Exam: appears weak, noted foul smelling lt groin wound, bp 98/60 on monitor, hr 94 Plan: sepsis w/u , ultrasound, wound cx 01/14/18 17:48 Ultrasound shows no evidence of testicular torsion. Epididymal structures appear unremarkable bilaterally. No hydrocele visualized. In comparison to prior ultrasound there is no longer definitive visualization of the left scrotal wall edema . 01/14/18 17:48 Laboratory Tests 01/14/18 01/14/18 01/14/18 15:09 15:09 15:09 WBC 5.6 Hgb 12.4 Hct 35.8 Plt Count 235 Lymphocytes % 12.2 Monocytes % 13.7 H Eosinophils % 14.4 H Sodium 135 L Potassium 3.8 Chloride 102 Carbon Dioxide 21 L Anion Gap 13 BUN 38 H Creatinine 1.9 H Creat Clearance w eGFR 36.22 Random Glucose 217 H Lactic Acid 1.8 Calcium 9.2 Magnesium 2.0 Total Bilirubin 0.4 AST 16 ALT 19 Alkaline Phosphatase 103 Total Protein 6.9 Albumin 3.5 *DC/Admit/Observation/Transfer - Referrals Referrals: Natalia Schaefer MD [Primary Care Provider] - - Patient Instructions - Post Discharge Activity
[2018-01-14] MEDS ORDERED: VANCOMYCIN 1 GRAM (PRE-DOCKED) 1,000 MG/250 ML BAG IVPB ONE ×2 (18:08→18:15)
[2018-01-14] MEDS ORDERED: PIPERACILLIN/TAZOB 3.375 GM 3.375 GM in DEXTROSE 5%-WATER - 50 ML IVPB SCH (18:15)
[2018-01-14] MEDS ORDERED: PIPERACILLIN/TAZOB 3.375 GM 3.375 GM/50 ML BAG IVPB ONE (18:16)
--- NOTE | 2018-01-14 19:26 | PDOC ---
*Physical Exam - Vital Signs Last Vital Signs Temp Pulse Resp BP Pulse Ox 98.0 F 76 18 100/43 L 100 01/14/18 17:00 01/14/18 17:00 01/14/18 17:00 01/14/18 17:00 01/14/18 17:00 ED Treatment Course - LABORATORY CBC & Chemistry Diagram: 01/14/18 15:09 01/14/18 15:09 - ADDITIONAL ORDERS Additional order review: Laboratory Results 01/14/18 01/14/18 15:09 15:09 Sodium 135 L Potassium 3.8 Chloride 102 Carbon Dioxide 21 L Anion Gap 13 BUN 38 H Creatinine 1.9 H Creat Clearance w eGFR 36.22 Random Glucose 217 H Lactic Acid 1.8 Calcium 9.2 Magnesium 2.0 Total Bilirubin 0.4 AST 16 ALT 19 Alkaline Phosphatase 103 Total Protein 6.9 Albumin 3.5 01/14/18 15:09 RBC 4.10 MCV 87.3 MCHC 34.7 RDW 13.4 MPV 7.8 Neutrophils % 58.3 Lymphocytes % 12.2 Monocytes % 13.7 H Eosinophils % 14.4 H Basophils % 1.4 - Medications Given in the ED: ED Medications Discontinued Medications Generic Name Dose Route Start Last Admin Trade Name Freq PRN Reason Stop Dose Admin Sodium Chloride 1,000 mls @ 1,000 mls/hr 01/14/18 15:03 01/14/18 15:29 Normal Saline - IV 01/14/18 16:02 1,000 mls/hr ASDIR STA Administration Vancomycin HCl 1,000 mg 01/14/18 18:08 01/14/18 18:44 Vancomycin (Pre-Docked) IVPB 01/14/18 18:09 1,000 mg ONCE ONE Administration Protocol Medical Decision Making - Medical Decision Making 01/14/18 19:26 I received signout on the patient. He is awaiting a CT scan and then we will admit him. 01/14/18 19:27 Pt has renal insuff, as well possible sepsis from a groin infection. 01/14/18 19:33 *DC/Admit/Observation/Transfer Diagnosis at time of Disposition: Weight loss, abnormal, Chest mass ARF (acute renal failure) Qualifiers: Acute renal failure type: unspecified Qualified Code(s): N17.9 - Acute kidney failure, unspecified - Discharge Dispostion Condition at time of disposition: Fair - Referrals Referrals: Natalia Schaefer MD [Primary Care Provider] - - Patient Instructions - Post Discharge Activity
--- NOTE | 2018-01-14 19:35 | PDOC ---
*Physical Exam - Vital Signs Last Vital Signs Temp Pulse Resp BP Pulse Ox 98.0 F 76 18 100/43 L 100 01/14/18 17:00 01/14/18 17:00 01/14/18 17:00 01/14/18 17:00 01/14/18 17:00 - Physical Exam General Appearance: Yes: Appropriately Dressed. No: Apparent Distress HEENT: positive: Normal ENT Inspection Respiratory/Chest: positive: Lungs Clear, Normal Breath Sounds. negative: Respiratory Distress, Accessory Muscle Use Cardiovascular: positive: Regular Rhythm, Regular Rate. negative: Murmur Male Genitalia: positive: other (clear discharge from left groin wound) ED Treatment Course - LABORATORY CBC & Chemistry Diagram: 01/14/18 15:09 01/14/18 15:09 - ADDITIONAL ORDERS Additional order review: Laboratory Results 01/14/18 01/14/18 15:09 15:09 Sodium 135 L Potassium 3.8 Chloride 102 Carbon Dioxide 21 L Anion Gap 13 BUN 38 H Creatinine 1.9 H Creat Clearance w eGFR 36.22 Random Glucose 217 H Lactic Acid 1.8 Calcium 9.2 Magnesium 2.0 Total Bilirubin 0.4 AST 16 ALT 19 Alkaline Phosphatase 103 Total Protein 6.9 Albumin 3.5 01/14/18 15:09 RBC 4.10 MCV 87.3 MCHC 34.7 RDW 13.4 MPV 7.8 Neutrophils % 58.3 Lymphocytes % 12.2 Monocytes % 13.7 H Eosinophils % 14.4 H Basophils % 1.4 - Medications Given in the ED: ED Medications Discontinued Medications Generic Name Dose Route Start Last Admin Trade Name Freq PRN Reason Stop Dose Admin Sodium Chloride 1,000 mls @ 1,000 mls/hr 01/14/18 15:03 01/14/18 15:29 Normal Saline - IV 01/14/18 16:02 1,000 mls/hr ASDIR STA Administration Vancomycin HCl 1,000 mg 01/14/18 18:08 01/14/18 18:44 Vancomycin (Pre-Docked) IVPB 01/14/18 18:09 1,000 mg ONCE ONE Administration Protocol Progress Note - Progress Note Progress Note: Received signout from nurse practitioner Nora. Briefly this a 63-year-old male with history of diabetes, arthritis, hypertension, morbid obesity, sarcoidosis and heart failure who presents emergency department for low blood pressure on preop visit with his primary doctor. Physical exam is notable for foul-smelling drainage from bleeding ulcer noted to the left inguinal fold. Laboratory testing is notable for renal failure with a creatinine of 1.9. Scrotal ultrasound performed reveals no discrete scrotal wall fluid collection. Comparison to a prior exam of 11/29/2017 there is no longer definite visualization of the left scrotal wall edema. Patient is pending CAT scan of pelvis. Patient is most likely to be admitted for acute renal failure in setting of hypotension and tachycardia. Medical Decision Making - Medical Decision Making 01/14/18 21:43 [id number] CT/PELVIS CT WITHOUT CONTRAST Pelvis CT (without contrast) Clinical information given: evaluate for fistula, esmer Multiplanar imaging was performed. Requested no intravenous or enteric contrast was administered. Submitted exam coverage does not include the scrotum or inferior aspect of the perineum. The visualized soft tissue structures and fascial planes demonstrate no evidence of fluid accumulation or air/gas accumulation. The appendix appears unremarkable. The partially imaged large and small bowel demonstrates no gross noncontrast pathology. Colonic fecal retention is noted which is probably moderate. The urinary bladder demonstrates no obvious intrinsic or extrinsic noncontrast abnormality. There is minimal to mild prostate enlargement. The seminal vesicles appear symmetric. No definite lymphadenopathy is seen on the basis of CT size criteria. No gross fistulous tract is identified. If clinically indicated additional evaluation utilizing a fistulogram may be performed. The visualized osseous structures demonstrate no gross acute pathology. Moderate to marked bilateral L4-L5 degenerative facet arthropathy. Impression: The visualized soft tissue structures and fascial planes demonstrate no definite abnormality. Please note that submitted exam coverage does not include the scrotum or inferior most aspect of the perineum. If clinically indicated supplemental CT evaluation may be performed at those levels. Reported By: Percy Villarreal MD 01/14/[address] Bell who is being covered by [employer]. 01/14/18 22:[address] Kasper of the hospitalist service who accepts patient for admission under Dr. Garcia. *DC/Admit/Observation/Transfer Diagnosis at time of Disposition: ARF (acute renal failure) Qualifiers: Acute renal failure type: unspecified Qualified Code(s): N17.9 - Acute kidney failure, unspecified - Discharge Dispostion Condition at time of disposition: Fair Decision to Admit order: Yes - Referrals Referrals: Natalia Schaefer MD [Primary Care Provider] - - Patient Instructions - Post Discharge Activity
--- NOTE | 2018-01-14 23:13 | HP ---
CHIEF COMPLAINT: sent from PCP with low BP PCP: HISTORY OF PRESENT ILLNESS: 63 year old man with history of NIDDM, arthritis, hypertension, morbid obesity, sarcoidosis, and CHF who presents to ER after being sent over by his PCP for low blood pressure noted on exam. Patient states what they're for medical clearance for recurring draining left scrotal abscess which she has had for about 6 weeks. Patient also states he lost approximately 35 pounds in the past 2 months unintentionally. Patient denies fever, chills, difficulty urinating, abdominal pain but does state decreased appetite and weakness. ER course was notable for: (1)IVF with NS (2)CHELSEY seen on chemistries (3) Recent Travel:none PAST MEDICAL HISTORY:NIDDM, arthritis, hypertension, morbid obesity, sarcoidosis , and CHF PAST SURGICAL HISTORY: Social History: Smoking:quit Alcohol:socially Drugs: denies Family History: Allergies cashew nut Allergy (Verified 01/14/18 16:03) pistachio nut Allergy (Verified 01/14/18 16:03) HOME MEDICATIONS: Home Medications Medication Instructions Recorded Insulin Glargine,Hum.rec.anlog 80 unit SQ HS 11/29/17 [Lantus] Ibuprofen [Motrin -] 800 mg PO Q8H PRN #60 tablet 12/03/17 Lisinopril [Prinivil] 2.5 mg PO DAILY #30 tablet 12/03/17 Aspirin [ASA -] 81 mg PO DAILY 01/14/18 Atorvastatin Ca [Lipitor] 0 mg PO HS 01/14/18 REVIEW OF SYSTEMS CONSTITUTIONAL: Absent: fever, chills, diaphoresis, generalized weakness, malaise, loss of appetite, weight change HEENT: Absent: rhinorrhea, nasal congestion, throat pain, throat swelling, difficulty swallowing, mouth swelling, ear pain, eye pain, visual changes CARDIOVASCULAR: lightheadedness Absent: chest pain, syncope, palpitations, irregular heart rate, , peripheral edema RESPIRATORY: Absent: cough, shortness of breath, dyspnea with exertion, orthopnea, wheezing, stridor, hemoptysis GASTROINTESTINAL: Absent: abdominal pain, abdominal distension, nausea, vomiting, diarrhea, constipation, melena, hematochezia GENITOURINARY: Absent: dysuria, frequency, urgency, hesitancy, hematuria, flank pain, genital pain MUSCULOSKELETAL: Absent: myalgia, arthralgia, joint swelling, back pain, neck pain SKIN: Absent: rash, itching, pallor HEMATOLOGIC/IMMUNOLOGIC: Absent: easy bleeding, easy bruising, lymphadenopathy, frequent infections ENDOCRINE: Absent: unexplained weight gain, unexplained weight loss, heat intolerance, cold intolerance NEUROLOGIC: Absent: headache, focal weakness or paresthesias, dizziness, unsteady gait, seizure, mental status changes, bladder or bowel incontinence PSYCHIATRIC: Absent: anxiety, depression, suicidal or homicidal ideation, hallucinations. PHYSICAL EXAMINATION Vital Signs - 24 hr 01/14/18 01/14/18 14:07 17:00 Temperature 97.7 F 98.0 F Pulse Rate 108 H Pulse Rate [ 76 Right] Respiratory 20 18 Rate Blood Pressure 98/57 L Blood Pressure 100/43 L [Right Arm] O2 Sat by Pulse 99 100 Oximetry (%) GENERAL: Awake, alert, and fully oriented, in no acute distress. HEAD: Normal with no signs of trauma. EYES: Pupils equal, round and reactive to light, extraocular movements intact, sclera anicteric, conjunctiva clear. No lid lag. EARS, NOSE, THROAT: Ears normal, nares patent, oropharynx clear without exudates. Moist mucous membranes. NECK: Normal range of motion, supple without lymphadenopathy, JVD, or masses. LUNGS: Breath sounds equal, clear to auscultation bilaterally. No wheezes, and no crackles. No accessory muscle use. HEART: Regular rate and rhythm, normal S1 and S2 without murmur, rub or gallop. ABDOMEN: Soft, nontender, not distended, normoactive bowel sounds, no guarding, no rebound, no masses. No hepatomegaly or splenomegaly. MUSCULOSKELETAL: Normal range of motion at all joints. No bony deformities or tenderness. No CVA tenderness. UPPER EXTREMITIES: 2+ pulses, warm, well-perfused. No cyanosis. No clubbing. No peripheral edema. LOWER EXTREMITIES: 2+ pulses, warm, well-perfused. No calf tenderness. No peripheral edema. NEUROLOGICAL: Cranial nerves II-XII intact. Normal speech. Normal gait. PSYCHIATRIC: Cooperative. Good eye contact. Appropriate mood and affect. SKIN: right ingiunal abcess Laboratory Results - last 24 hr 01/14/18 01/14/18 01/14/18 15:09 15:09 15:09 WBC 5.6 RBC 4.10 Hgb 12.4 Hct 35.8 MCV 87.3 MCH 30.3 MCHC 34.7 RDW 13.4 Plt Count 235 MPV 7.8 Absolute Neuts (auto) 3.3 Neutrophils % 58.3 Lymphocytes % 12.2 Monocytes % 13.7 H Eosinophils % 14.4 H Basophils % 1.4 Nucleated RBC % 0 Sodium 135 L Potassium 3.8 Chloride 102 Carbon Dioxide 21 L Anion Gap 13 BUN 38 H Creatinine 1.9 H Creat Clearance w eGFR 36.22 Random Glucose 217 H Lactic Acid 1.8 Calcium 9.2 Magnesium 2.0 Total Bilirubin 0.4 AST 16 ALT 19 Alkaline Phosphatase 103 Total Protein 6.9 Albumin 3.5 ASSESSMENT/PLAN: Problem List - Problem (1) ARF (acute renal failure) Assessment/Plan: most likely 2/2 volume depletion. * IVF w/ NS @ 82 ml/hr * kidney US to r/o obstruction * urine lytes. (2) HTN (hypertension) (3) CHF (congestive heart failure) Assessment/Plan: hold lasix. for chelsey. (4) Diabetes mellitus Assessment/Plan: * ADA diet * BHG ACHS * ISS ACHS (5) Scrotal abscess Assessment/Plan: given Vanco/Zosyn in ED * consult with Dr. Pedraza Visit type - Emergency Visit Emergency Visit: Yes ED Registration Date: 01/14/18 Care time: The patient presented to the Emergency Department on the above date and was hospitalized for further evaluation of their emergent condition. - New Patient This patient is new to me today: Yes Date on this admission: 01/17/18 - Critical Care Critical Care patient: No
--- NOTE | 2018-01-14 23:20 | PN ---
Teaching Attending Note Name of Resident: Raymundo Kasper ATTENDING PHYSICIAN STATEMENT I saw and evaluated the patient. I reviewed the resident's note and discussed the case with the resident. I agree with the resident's findings and plan as documented. SUBJECTIVE: Patient is a 63 year old man with history of NIDDM, arthritis, hypertension, morbid obesity, sarcoidosis, and CHF who presents to ER after being sent over by his PCP for low blood pressure noted on exam. Patient states what they're for medical clearance for recurring draining left scrotal abscess which she has had for about 6 weeks. Patient also states he lost approximately 35 pounds in the past 2 months unintentionally. Patient denies fever, chills, difficulty urinating, abdominal pain but does state decreased appetite and weakness. OBJECTIVE: Alert Vital Signs Period Temp Pulse Resp BP Sys/Crocker Pulse Ox Last 24 Hr 97.7 F-98.0 F 76-108 18-20 98-100/43-57 99-100 HEENT: No Jaundice, eye redness or discharge, PERRLA, EOMI. Normocephalic, atraumatic. External ears are normal and hearing is grossly intact. No nasal discharge. Neck: Supple, nontender. No palpable adenopathy or thyromegaly. No JVD Chest: Good effort. Clear to auscultation and percussion. Heart: Regular. No S3, rub or murmur Abdomen: Not distended, soft, nontender and no HSM. No rebound or guarding. Normoactive bowel sounds. Ext: Peripheral pulses intact. No leg edema. Left inguinal fold ulcer with drainage. Skin: Warm and dry. No petechiae, rash or ecchymosis. Neuro: Alert. Oriented x3. CN 2-12 grossly intact. Sensation grossly intact in all four extremities and DTR are symmetric. Current Medications Generic Name Dose Route Start Last Admin Trade Name Freq PRN Reason Stop Dose Admin Aspirin 81 mg 01/15/18 10:00 Asa - PO DAILY SHIV Atorvastatin Calcium 10 mg 01/15/18 22:00 Lipitor - PO HS SHIV Heparin Sodium (Porcine) 5,000 unit 01/15/18 06:00 Heparin - SQ TID SHIV Piperacillin Sod/Tazobactam 50 mls @ 100 mls/hr 01/14/18 18:15 01/14/18 18:17 Sod 3.375 gm/ Dextrose IVPB 100 mls/hr ONCE SHIV Administration Sodium Chloride 1,000 mls @ 83 mls/hr 01/14/18 23:00 Normal Saline - IV ASDIR SHIV Insulin Aspart 1 vial 01/15/18 07:00 Novolog Vial Sliding Scale - SQ ACHS [facility] Protocol Insulin Detemir 80 units 01/15/18 22:00 Levemir Vial SQ [facility] Home Medications Medication Instructions Recorded Insulin Glargine,Hum.rec.anlog 80 unit SQ HS 11/29/17 [Lantus] Ibuprofen [Motrin -] 800 mg PO Q8H PRN #60 tablet 12/03/17 Lisinopril [Prinivil] 2.5 mg PO DAILY #30 tablet 12/03/17 Aspirin [ASA -] 81 mg PO DAILY 01/14/18 Atorvastatin Ca [Lipitor] 0 mg PO HS 01/14/18 Abnormal Lab Results 01/14/18 01/14/18 15:09 15:09 Monocytes % 13.7 H Eosinophils % 14.4 H Sodium 135 L Carbon Dioxide 21 L BUN 38 H Creatinine 1.9 H Random Glucose 217 H ASSESSMENT AND PLAN: 1. Infected inguinal fold ulcer/abscess - Hypotension improved. Will be careful with IV fluids in view of CHF history. Wound swab sent and sepsis workup done. Started on vancomycin and zosyn pending cultures. Will adjust vancomycin dose for reduced GFR. DC vancomycin as soon as MRSA is excluded. Consult surgery, urology and ID. Search for occult malignancy to explain weight loss. 2. DM - Get UA, rule out ketosis and treat with IV fluids and insulin to correct metabolic acidosis. Then implement sliding scale insulin regimen. Provide comprehensive diabetes care with patient teaching and counseling about the importance of euglycemia, eye care and foot care. 3. CHELSEY - Etiology unclear. Rule out urinary outlet obstruction and embolic disease in view of eosinophilia. Get complement C3, C4, CH50. Consult nephrology and avoid nephrotoxic agents such as NSAIDS, aminoglycosides, contrast dyes and certain Alternative medicine products. 4. Obesity - Will provide patient all the necessary assistance , counseling and positive reinforcement to facilitate weight loss. Consult multimedia production assistant. 5. DVT prophylaxis - Heparin 5000u sq tid. 6. Advance directives - Full code
[2018-01-15 00:01] LABS: URINE APPEARANCE CLEAR; URINE BILIRUBIN NEGATIVE (<2.0 mg/dL); URINE COLOR LTYELLOW; URINE GLUCOSE (UA) NEGATIVE (NEGATIVE); URINE KETONE NEGATIVE (NEGATIVE); URINE LEUK ESTERASE NEGATIVE (NEGATIVE); URINE NITRITE NEGATIVE (NEGATIVE); URINE PROTEIN NEGATIVE (NEGATIVE); URINE UROBILINOGEN NEGATIVE mg/dL (0.2-1.0)
[2018-01-15] MEDS: SODIUM CHLORIDE 1,000 ML IV SCH ×2 (00:07→06:13)
[2018-01-15] MEDS: INSULIN SLIDING SCALE (NOVOLOG) 1 VIAL SQ SCH ×4 (06:14→21:58)
[2018-01-15] MEDS: HEPARIN NA (PORCINE) 5,000 UNITS/ML 1ML VIAL SQ SCH ×3 (06:14→21:58)
[2018-01-15 08:17] LABS: BASO % 1.4 % (0-2.0); EOS % 14.2 % (0-4.5); HEMATOCRIT 33.5 % (35.4-49); HEMOGLOBIN 11.4 GM/dL (11.7-16.9); LYMPH % 12.2 % (8-40); MCH 29.5 pg (25.7-33.7); MEAN CELL VOLUME 86.8 fl (80-96); MEAN PLT VOLUME 7.9 fl (7.5-11.1); MONO % 14.5 % (3.8-10.2); NEUT % 57.7 % (42.8-82.8); PLATELET COUNT 221 K/MM3 (134-434); RBC 3.86 M/mm3 (4.00-5.60); RDW 13.3 % (11.9-15.9); WHITE BLOOD COUNT 5.4 K/mm3 (4.0-10.0)
[2018-01-15 08:58] LABS: ALBUMIN 3.3 g/dl (3.4-5.0); ALK PHOS 95 U/L (45-117); ANION GAP 11 MMOL/L (8-16); BILIRUBIN,TOTAL 0.3 mg/dL (0.2-1); BLOOD UREA NITROGEN 34 mg/dL (7-18); CALCIUM 9.1 mg/dL (8.5-10.1); CHLORIDE 104 mmol/L (98-107); CO2 21 mmol/L (21-32); CREATININE 1.7 mg/dL (0.55-1.3); GLUCOSE,RANDOM 110 mg/dL (74-106); MAGNESIUM 2.2 mg/dL (1.8-2.4); PHOSPHOROUS 4.8 mg/dL (2.5-4.9); POTASSIUM 3.8 mmol/L (3.5-5.1); SGOT/AST 11 U/L (15-37); SGPT/ALT 17 U/L (13-61); SODIUM 136 mmol/L (136-145); TOT PROT 6.7 g/dl (6.4-8.2)
[2018-01-15] MEDS: ACETAMINOPHEN 1000 MG/100 ML VIAL (NON FORMULARY) IVPB PRN ×2 (10:48→20:52)
[2018-01-15] MEDS: ASPIRIN 81 MG CHEWABLE TABLETS PO SCH (10:48)
--- NOTE | 2018-01-15 12:47 | PN ---
Progress Note, Physician Chief Complaint: Mr Gray complains of pains in his legs, chronic. Denies cp, sob, n/v. - Current Medication List Current Medications: Active Medications Acetaminophen (Ofirmev Injection -) 1,000 mg IVPB Q6H PRN PRN Reason: PAIN LEVEL 6-10 Last Admin: 01/15/18 10:48 Dose: 1,000 mg Aspirin (Asa -) 81 mg PO DAILY [facility] Last Admin: 01/15/18 10:48 Dose: 81 mg Atorvastatin Calcium (Lipitor -) 10 mg PO HS [facility] Heparin Sodium (Porcine) (Heparin -) 5,000 unit SQ TID [facility] Last Admin: 01/15/18 06:14 Dose: 5,000 unit Sodium Chloride (Normal Saline -) 1,000 mls @ 83 mls/hr IV ASDIR [facility] Last Admin: 01/15/18 06:13 Dose: 83 mls/hr Insulin Aspart (Novolog Vial Sliding Scale -) 1 vial SQ [facility]; Protocol Last Admin: 01/15/18 12:24 Dose: Not Given Insulin Detemir (Levemir Vial) 80 units SQ [facility] - Objective Vital Signs: Vital Signs Temperature 37.0 C 01/15/18 05:50 Pulse Rate 91 H 01/15/18 05:50 Respiratory Rate 20 01/15/18 05:50 Blood Pressure 97/47 L 01/15/18 05:50 O2 Sat by Pulse Oximetry (%) 100 01/15/18 03:00 Constitutional: Yes: No Distress, Calm, Obese Cardiovascular: Yes: Regular Rate and Rhythm. No: Gallop, Murmur, Rub Respiratory: Yes: Regular, CTA Bilaterally. No: Rales, Rhonchi, Wheezes Gastrointestinal: Yes: Normal Bowel Sounds, Soft. No: Distention, Tenderness Extremities: Yes: WNL Edema: No Labs: CBC, BMP 01/15/18 07:50 01/15/18 07:50 Problem List - Problems (1) Hypotension Assessment/Plan: -suspect hypotension is due to combination of antihypertensives, weight loss, and dehydration -lower suspicion of sepsis but considering chronic scrotal wound it is possible -holding antihypertensives -continue IVF -improving Code(s): I95.9 - HYPOTENSION, UNSPECIFIED Qualifiers: Hypotension type: hypotension due to drug Qualified Code(s): I95.2 - Hypotension due to drugs (2) CHELSEY (acute kidney injury) Assessment/Plan: -secondary to dehydration and hypotension -use of ibuprofen also contributing -also on HCTZ and lisinopril as outpatient -holding HCTZ and lisinopril -no ibuprofen -continue hydration -improving Code(s): N17.9 - ACUTE KIDNEY FAILURE, UNSPECIFIED (3) CHF (congestive heart failure) Assessment/Plan: -not in exacerbation -continue gentle hydration Code(s): I50.9 - HEART FAILURE, UNSPECIFIED Qualifiers: Heart failure type: systolic Heart failure chronicity: chronic Qualified Code(s): I50.22 - Chronic systolic (congestive) heart failure (4) HTN (hypertension) Assessment/Plan: -currently hypotensive Code(s): I10 - ESSENTIAL (PRIMARY) HYPERTENSION Qualifiers: Hypertension type: essential hypertension Qualified Code(s): I10 - Essential (primary) hypertension (5) Weight loss, abnormal Assessment/Plan: -secondary to not wanting to eat hot food -monitor Code(s): R63.4 - ABNORMAL WEIGHT LOSS (6) Diabetes mellitus Assessment/Plan: -continue diabetic diet -continue insulin Code(s): E11.9 - TYPE 2 DIABETES MELLITUS WITHOUT COMPLICATIONS Qualifiers: Diabetes mellitus type: type 2 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 insulin use: with halfway use Diabetes mellitus complication status: with circulatory complication Diabetes mellitus complication detail: with other circulatory complications Qualified Code(s): E11.59 - Type 2 diabetes mellitus with other circulatory complications; Z79.4 - director long term care (current) use of insulin (7) Morbid obesity with BMI of 45.0-49.9, adult Assessment/Plan: -outpatient weight loss program Code(s): E66.01 - MORBID (SEVERE) OBESITY DUE TO EXCESS CALORIES; Z68.42 - BODY MASS INDEX (BMI) 45.0-49.9, ADULT (8) Scrotal abscess Assessment/Plan: -ID to evaluate and determine if needs antibiotics Code(s): N49.2 - INFLAMMATORY DISORDERS OF SCROTUM
--- NOTE | 2018-01-15 15:33 | CON.ID ---
Consult Consult Specialty:: infectious diseases Referred by:: Betsy Reason for Consultation:: scrotal abscess - History of Present Illness Chief Complaint: htn History of Present Illness: this morbidly obese patient with known h/o of scrotal cellulittis during last admission with treatment now coming to the hospital because of hypotension patient still continues to have drainage from the scrotal region the drainage is serous and the patient is supposed to have surgery for the same patient has no other problems denies any fever - History Source History Provided By: Patient Limitations to Obtaining History: No Limitations - Past Medical History Cardio/Vascular: Yes: HTN Rheumatology: Yes: Sarcoidosis, Other (psoriatic arthritis) Endocrine: Yes: Diabetes Mellitus - Past Surgical History Past Surgical History: Yes: None - Alcohol/Substance Use Hx Alcohol Use: No History of Substance Use: reports: Marijuana - Smoking History Smoking history: Never smoked Have you smoked in the past 12 months: No - Social History ADL: Independent History of Recent Travel: Yes Home Medications - Allergies Allergies/Adverse Reactions: Allergies Allergy/AdvReac Type Severity Reaction Status Date / Time cashew nut Allergy Verified 01/14/18 16:03 pistachio nut Allergy Verified 01/14/18 16:03 - Home Medications Home Medications: Ambulatory Orders Insulin Glargine,Hum.rec.anlog [Lantus] 80 unit SQ HS 11/29/17 Ibuprofen [Motrin -] 800 mg PO Q8H PRN #60 tablet 12/03/17 Lisinopril [Prinivil] 2.5 mg PO DAILY #30 tablet 12/03/17 Aspirin [ASA -] 81 mg PO DAILY 01/14/18 Atorvastatin Ca [Lipitor] 0 mg PO HS 01/14/18 Family Disease History - Family Disease History Family Disease History: Diabetes: Mother (dementia), CA: Father (prostate), Brother (prostate), Other: Mother Review of Systems - Review of Systems Constitutional: reports: No Symptoms Eyes: reports: No Symptoms HENT: reports: No Symptoms Neck: reports: No Symptoms Cardiovascular: reports: No Symptoms Respiratory: reports: No Symptoms Gastrointestinal: reports: No Symptoms Genitourinary: reports: Other (discharge from the scrotum) Musculoskeletal: reports: No Symptoms Integumentary: reports: No Symptoms Neurological: reports: No Symptoms Endocrine: reports: No Symptoms Hematology/Lymphatic: reports: No Symptoms Psychiatric: reports: No Symptoms Physical Exam Vital Signs: Vital Signs Temperature 97.9 F 01/15/18 14:04 Pulse Rate 83 01/15/18 14:04 Respiratory Rate 20 01/15/18 14:04 Blood Pressure 111/62 01/15/18 14:04 O2 Sat by Pulse Oximetry (%) 100 01/15/18 03:00 Constitutional: Yes: Well Nourished, No Distress, Calm, Obese Eyes: Yes: Conjunctiva Clear HENT: Yes: Atraumatic, Normocephalic Neck: Yes: Supple, Trachea Midline Cardiovascular: Yes: Regular Rate and Rhythm Respiratory: Yes: Regular, CTA Bilaterally Gastrointestinal: Yes: Normal Bowel Sounds, Soft Renal/: Yes: Other (drainage from the scrotum serous present) Musculoskeletal: Yes: WNL Extremities: Yes: WNL Neurological: Yes: Alert, Oriented Psychiatric: Yes: Alert, Oriented Labs: CBC, BMP 01/15/18 07:50 01/15/18 07:50 Assessment/Plan Problem List - Problems (1) Hypotension Code(s): I95.9 - HYPOTENSION, UNSPECIFIED Qualifiers: Hypotension type: hypotension due to drug Qualified Code(s): I95.2 - Hypotension due to drugs (2) CHELSEY (acute kidney injury) Code(s): N17.9 - ACUTE KIDNEY FAILURE, UNSPECIFIED (3) CHF (congestive heart failure) Code(s): I50.9 - HEART FAILURE, UNSPECIFIED Qualifiers: Heart failure type: systolic Heart failure chronicity: chronic Qualified Code(s): I50.22 - Chronic systolic (congestive) heart failure (4) HTN (hypertension) Code(s): I10 - ESSENTIAL (PRIMARY) HYPERTENSION Qualifiers: Hypertension type: essential hypertension Qualified Code(s): I10 - Essential (primary) hypertension (5) Weight loss, abnormal Code(s): R63.4 - ABNORMAL WEIGHT LOSS (6) Diabetes mellitus Code(s): E11.9 - TYPE 2 DIABETES MELLITUS WITHOUT COMPLICATIONS Qualifiers: Diabetes mellitus type: type 2 Diabetes mellitus [place] insulin use: with [place] use Diabetes mellitus complication status: with circulatory complication Diabetes mellitus complication detail: with other circulatory complications Qualified Code(s): E11.59 - Type 2 diabetes mellitus with other circulatory complications; Z79.4 - terminal clerk (current) use of insulin (7) Morbid obesity with BMI of 45.0-49.9, adult Code(s): E66.01 - MORBID (SEVERE) OBESITY DUE TO EXCESS CALORIES; Z68.42 - BODY MASS INDEX (BMI) 45.0-49.9, ADULT (8) Scrotal abscess Code(s): N49.2 - INFLAMMATORY DISORDERS OF SCROTUM plan i do not think patient has infection will not start him on any abx continue to monitor drainage patient has plan to get surgery
--- NOTE | 2018-01-15 15:47 | CONSULT ---
Consult Consult Specialty:: Nephrology Reason for Consultation:: CHELSEY - History of Present Illness Chief Complaint: sent in from PMD for hypotension History of Present Illness: Pt is a 63 year old male with pmhx of DM, CHF, CAD, [place], arthritis, nsaid use, HTN, sarcoid, and obesity who was sent in from his PMD for hypotension. He was found to be in renal failure and I was asked to see him. He denies history of CKD. He takes nsaids daily for arthritis. He was on lasix and hctz along with lisinopril for CHF. He denies lower ext edema and says that his legs look skinnier than they had been in a long time. He has had a 35 pound weight loss over about 2 months. He denies fevers or chills. He denies shortness of breath or palpitations. - History Source History Provided By: Patient - Past Medical History Cardio/Vascular: Yes: CAD, CHF, HTN Rheumatology: Yes: Sarcoidosis, Other (psoriatic arthritis) Endocrine: Yes: Diabetes Mellitus - Past Surgical History Past Surgical History: Yes: None - Alcohol/Substance Use Hx Alcohol Use: No History of Substance Use: reports: Marijuana - Smoking History Smoking history: Never smoked Have you smoked in the past 12 months: No - Social History ADL: Independent History of Recent Travel: Yes Home Medications - Allergies Allergies/Adverse Reactions: Allergies Allergy/AdvReac Type Severity Reaction Status Date / Time cashew nut Allergy Verified 01/14/18 16:03 pistachio nut Allergy Verified 01/14/18 16:03 - Home Medications Home Medications: Ambulatory Orders Insulin Glargine,Hum.rec.anlog [Lantus] 80 unit SQ HS 11/29/17 Ibuprofen [Motrin -] 800 mg PO Q8H PRN #60 tablet 12/03/17 Lisinopril [Prinivil] 2.5 mg PO DAILY #30 tablet 12/03/17 Aspirin [ASA -] 81 mg PO DAILY 01/14/18 Atorvastatin Ca [Lipitor] 0 mg PO HS 01/14/18 Family Disease History - Family Disease History Family Disease History: Diabetes: Mother (dementia), CA: Father (prostate), Brother (prostate), Other: Mother Review of Systems - Review of Systems Constitutional: reports: No Symptoms Eyes: reports: No Symptoms HENT: reports: No Symptoms Neck: reports: No Symptoms Cardiovascular: reports: No Symptoms Respiratory: reports: SOB on Exertion Gastrointestinal: reports: No Symptoms Genitourinary: reports: No Symptoms Musculoskeletal: reports: No Symptoms Integumentary: reports: No Symptoms Neurological: reports: No Symptoms Endocrine: reports: No Symptoms Hematology/Lymphatic: reports: No Symptoms Psychiatric: reports: No Symptoms Physical Exam Vital Signs: Vital Signs Temperature 97.9 F 01/15/18 14:04 Pulse Rate 83 01/15/18 14:04 Respiratory Rate 20 01/15/18 14:04 Blood Pressure 111/62 01/15/18 14:04 O2 Sat by Pulse Oximetry (%) 100 01/15/18 03:00 Constitutional: Yes: Calm Eyes: Yes: Conjunctiva Clear HENT: Yes: Atraumatic Cardiovascular: Yes: S1, S2 Respiratory: Yes: CTA Bilaterally Gastrointestinal: Yes: Soft, Abdomen, Obese Renal/: Yes: WNL Musculoskeletal: Yes: WNL Edema: Yes Edema: LLE: Trace, RLE: Trace Integumentary: Yes: Rash, Venous Stasis Changes Neurological: Yes: Oriented Psychiatric: Yes: Oriented Labs: CBC, BMP 01/15/18 07:50 01/15/18 07:50 Laboratory Tests 12/02/17 12/03/17 01/14/18 06:18 06:00 15:09 Creatinine 0.9 1.0 1.9 H 01/15/18 07:50 Creatinine 1.7 H Imaging - Results Chest X-ray: Report Reviewed Ultrasound: Report Reviewed Problem List - Problems (1) CHELSEY (acute kidney injury) Code(s): N17.9 - ACUTE KIDNEY FAILURE, UNSPECIFIED (2) CHF (congestive heart failure) Code(s): I50.9 - HEART FAILURE, UNSPECIFIED Qualifiers: Heart failure type: systolic Heart failure chronicity: chronic Qualified Code(s): I50.22 - Chronic systolic (congestive) heart failure (3) HTN (hypertension) Code(s): I10 - ESSENTIAL (PRIMARY) HYPERTENSION Qualifiers: Hypertension type: essential hypertension Qualified Code(s): I10 - Essential (primary) hypertension (4) Diabetes mellitus Code(s): E11.9 - TYPE 2 DIABETES MELLITUS WITHOUT COMPLICATIONS Qualifiers: Diabetes mellitus type: type 2 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 insulin use: with halfway use Diabetes mellitus complication status: with circulatory complication Diabetes mellitus complication detail: with other circulatory complications Qualified Code(s): E11.59 - Type 2 diabetes mellitus with other circulatory complications; Z79.4 - terminal manager (current) use of insulin (5) Sarcoid Code(s): D86.9 - SARCOIDOSIS, UNSPECIFIED (6) Scrotal abscess Code(s): N49.2 - INFLAMMATORY DISORDERS OF SCROTUM Assessment/Plan Current Medications Generic Name Dose Route Start Last Admin Trade Name Freq PRN Reason Stop Dose Admin Acetaminophen 1,000 mg 01/15/18 10:23 01/15/18 10:48 Ofirmev Injection - IVPB 1,000 mg Q6H PRN Administration PAIN LEVEL 6-10 Aspirin 81 mg 01/15/18 10:00 01/15/18 10:48 Asa - PO 81 mg DAILY SHIV Administration Atorvastatin Calcium 10 mg 01/15/18 22:00 Lipitor - PO HS [facility] Heparin Sodium (Porcine) 5,000 unit 01/15/18 06:00 01/15/18 06:14 Heparin - SQ 5,000 unit TID SHIV Administration Sodium Chloride 1,000 mls @ 83 mls/hr 01/14/18 23:00 01/15/18 06:13 Normal Saline - IV 83 mls/hr ASDIR SHVI Administration Insulin Aspart 1 vial 01/15/18 07:00 01/15/18 12:24 Novolog Vial Sliding Scale - SQ Not Given ACHS [facility] Protocol Insulin Detemir 80 units 01/15/18 22:00 Levemir Vial SQ HS [facility] Selected Entries 01/14/18 01/15/18 14:07 18:00 Blood Pressure 98/57 L 118/61 Laboratory Tests 01/14/18 15:09 Urine Protein Negative Urine Blood Negative Impression 1. CHELSEY 2. hypotension 3. obesity 4. CHF 5. CAD with [place] per pt 6. HLD 7. DM 8. sarcoid 9. arthritis 10. scrotal abscess 11. weight loss 12. abnormal right hilum Plan - hold hctz and lasix - agree with hydration - bp is improving - hold lisinopril - ua is negative for blood or protein - renal ultrasound reviewed - CHELSEY can be secondary to dehydration - will check urine studies to calc fena however pt is on fluids and results may be altered, will check urine urea as well - pt takes daily nsaids, recommend that he stops - pt sound get age appropriate screening for weight loss. He may have lost water weight from the diuretics but malignancy should be ruled out - evaluate right hilum - will follow pt Dr Britt
[2018-01-15] MEDS ORDERED: PT OWN MED DRAWER 7, Y5N ONE (20:19)
[2018-01-15] MEDS: INSULIN (LEVEMIR) 100 UNITS/ML UNITS SQ SCH ×2 (21:57→22:01)
[2018-01-15] MEDS: ATORVASTATIN CA 10 MG TABLET (FP) PO SCH (21:58)
[2018-01-16] MEDS: SODIUM CHLORIDE 1,000 ML IV SCH ×2 (00:20→00:21)
[2018-01-16] MEDS: INSULIN SLIDING SCALE (NOVOLOG) 1 VIAL SQ SCH ×4 (06:45→21:45)
[2018-01-16] MEDS: INSULIN (LEVEMIR) 100 UNITS/ML UNITS SQ SCH ×2 (06:47→21:45)
[2018-01-16] MEDS: HEPARIN NA (PORCINE) 5,000 UNITS/ML 1ML VIAL SQ SCH ×3 (06:47→21:44)
[2018-01-16] MEDS ORDERED: INSULIN (NOVOLOG) ASPART 100 UNITS/ML 10ML VIAL ONE ×2 (07:00→17:13)
[2018-01-16 07:45] LABS: BASO % 1.5 % (0-2.0); EOS % 15.1 % (0-4.5); HEMATOCRIT 32.6 % (35.4-49); LYMPH % 12.8 % (8-40); MCHC 33.6 g/dl (32.0-35.9); MEAN CELL VOLUME 86.4 fl (80-96); MEAN PLT VOLUME 7.8 fl (7.5-11.1); MONO % 17.5 % (3.8-10.2); NEUT % 53.1 % (42.8-82.8); PLATELET COUNT 215 K/MM3 (134-434); RBC 3.77 M/mm3 (4.00-5.60); RDW 13.4 % (11.9-15.9); WHITE BLOOD COUNT 4.9 K/mm3 (4.0-10.0)
[2018-01-16 08:30] LABS: ANION GAP 7 MMOL/L (8-16); BLOOD UREA NITROGEN 29 mg/dL (7-18); CALCIUM 9.4 mg/dL (8.5-10.1); CHLORIDE 107 mmol/L (98-107); CO2 22 mmol/L (21-32); CREATININE 1.3 mg/dL (0.55-1.3); GLUCOSE,RANDOM 101 mg/dL (74-106); MAGNESIUM 2.2 mg/dL (1.8-2.4); PHOSPHOROUS 5.2 mg/dL (2.5-4.9); POTASSIUM 3.7 mmol/L (3.5-5.1); SODIUM 136 mmol/L (136-145)
[2018-01-16] MEDS: ASPIRIN 81 MG CHEWABLE TABLETS PO SCH (09:04)
--- NOTE | 2018-01-16 10:30 | PN ---
Progress Note, Physician Chief Complaint: Mr Gray complains of constipation and not sleeping well. Otherwise says he is feeling better. No cp, sob, n/v. - Current Medication List Current Medications: Active Medications Acetaminophen (Ofirmev Injection -) 1,000 mg IVPB Q6H PRN PRN Reason: PAIN LEVEL 6-10 Last Admin: 01/15/18 20:52 Dose: 1,000 mg Aspirin (Asa -) 81 mg PO DAILY [facility] Last Admin: 01/16/18 09:04 Dose: 81 mg Atorvastatin Calcium (Lipitor -) 10 mg PO HS [facility] Last Admin: 01/15/18 21:58 Dose: 10 mg Heparin Sodium (Porcine) (Heparin -) 5,000 unit SQ TID [facility] Last Admin: 01/16/18 06:47 Dose: Not Given Sodium Chloride (Normal Saline -) 1,000 mls @ 83 mls/hr IV ASDIR [facility] Last Admin: 01/16/18 00:21 Dose: Not Given Insulin Aspart (Novolog Vial Sliding Scale -) 1 vial SQ ACHS [facility]; Protocol Last Admin: 01/16/18 06:45 Dose: Not Given Insulin Detemir (Levemir Vial) 40 units SQ BID@0700,2200 [facility] Last Admin: 01/16/18 06:47 Dose: 40 units - Objective Vital Signs: Vital Signs Temperature 36.9 C 01/16/18 09:58 Pulse Rate 91 H 01/16/18 09:58 Respiratory Rate 20 01/16/18 09:58 Blood Pressure 124/64 01/16/18 09:58 O2 Sat by Pulse Oximetry (%) 100 01/15/18 21:00 Constitutional: Yes: No Distress, Calm, Obese Cardiovascular: Yes: Regular Rate and Rhythm. No: Gallop, Murmur, Rub Respiratory: Yes: Regular, CTA Bilaterally. No: Rales, Rhonchi, Wheezes Gastrointestinal: Yes: Normal Bowel Sounds, Soft. No: Distention, Tenderness Extremities: Yes: WNL Edema: No Labs: CBC, BMP 01/16/18 06:55 01/16/18 06:55 Problem List - Problems (1) Hypotension Code(s): I95.9 - HYPOTENSION, UNSPECIFIED Qualifiers: Hypotension type: hypotension due to drug Qualified Code(s): I95.2 - Hypotension due to drugs (2) CHELSEY (acute kidney injury) Code(s): N17.9 - ACUTE KIDNEY FAILURE, UNSPECIFIED (3) CHF (congestive heart failure) Code(s): I50.9 - HEART FAILURE, UNSPECIFIED Qualifiers: Heart failure type: systolic Heart failure chronicity: chronic Qualified Code(s): I50.22 - Chronic systolic (congestive) heart failure (4) HTN (hypertension) Code(s): I10 - ESSENTIAL (PRIMARY) HYPERTENSION Qualifiers: Hypertension type: essential hypertension Qualified Code(s): I10 - Essential (primary) hypertension (5) Weight loss, abnormal Code(s): R63.4 - ABNORMAL WEIGHT LOSS (6) Diabetes mellitus Code(s): E11.9 - TYPE 2 DIABETES MELLITUS WITHOUT COMPLICATIONS Qualifiers: Diabetes mellitus type: type 2 Diabetes mellitus rehabilitation consultant insulin use: with rehabilitation consultant use Diabetes mellitus complication status: with circulatory complication Diabetes mellitus complication detail: with other circulatory complications Qualified Code(s): E11.59 - Type 2 diabetes mellitus with other circulatory complications; Z79.4 - business and financial counsel (current) use of insulin (7) Morbid obesity with BMI of 45.0-49.9, adult Code(s): E66.01 - MORBID (SEVERE) OBESITY DUE TO EXCESS CALORIES; Z68.42 - BODY MASS INDEX (BMI) 45.0-49.9, ADULT (8) Scrotal abscess Code(s): N49.2 - INFLAMMATORY DISORDERS OF SCROTUM Assessment/Plan (1) Hypotension Assessment/Plan: -much improved holding antihypertensives and hydration -continue IVF today -close to resolution Code(s): I95.9 - HYPOTENSION, UNSPECIFIED Qualifiers: Hypotension type: hypotension due to drug Qualified Code(s): I95.2 - Hypotension due to drugs (2) CHELSEY (acute kidney injury) Assessment/Plan: -improving -almost to baseline -appreciate nephrology assistance -agree with cessation of ibuprofen -renal ultrasound reviewed Code(s): N17.9 - ACUTE KIDNEY FAILURE, UNSPECIFIED (3) CHF (congestive heart failure) Assessment/Plan: -not in exacerbation -continue gentle hydration Code(s): I50.9 - HEART FAILURE, UNSPECIFIED Qualifiers: Heart failure type: systolic Heart failure chronicity: chronic Qualified Code(s): I50.22 - Chronic systolic (congestive) heart failure (4) HTN (hypertension) Assessment/Plan: -normotensive -will need to observe and see which medications need to be restarted Code(s): I10 - ESSENTIAL (PRIMARY) HYPERTENSION Qualifiers: Hypertension type: essential hypertension Qualified Code(s): I10 - Essential (primary) hypertension (5) Weight loss, abnormal Assessment/Plan: -agree with cancer screening -defer colonoscopy to outpatient -also will hold on CT scans with contrast secondary to renal function -will d/w nephrology about when this is safe Code(s): R63.4 - ABNORMAL WEIGHT LOSS (6) Diabetes mellitus Assessment/Plan: -continue diabetic diet -continue insulin Code(s): E11.9 - TYPE 2 DIABETES MELLITUS WITHOUT COMPLICATIONS Qualifiers: Diabetes mellitus type: type 2 Diabetes mellitus rehabilitation consultant insulin use: with rehabilitation consultant use Diabetes mellitus complication status: with circulatory complication Diabetes mellitus complication detail: with other circulatory complications Qualified Code(s): E11.59 - Type 2 diabetes mellitus with other circulatory complications; Z79.4 - [facility] (current) use of insulin (7) Morbid obesity with BMI of 45.0-49.9, adult Assessment/Plan: -outpatient weight loss program Code(s): E66.01 - MORBID (SEVERE) OBESITY DUE TO EXCESS CALORIES; Z68.42 - BODY MASS INDEX (BMI) 45.0-49.9, ADULT (8) Scrotal abscess Assessment/Plan: -case d/w Dr Zuleta -no need for antibiotics -will need surgery Code(s): N49.2 - INFLAMMATORY DISORDERS OF SCROTUM Dispo -possible discharge tomorrow
[2018-01-16] MEDS: POLYETHYLENE GLYCOL 3350 119 GM BTL PO SCH ×2 (11:06→21:45)
[2018-01-16] MEDS: DOCUSATE SODIUM 100 MG CAPSULE (FP) PO SCH ×2 (11:06→21:44)
[2018-01-16] MEDS: ACETAMINOPHEN 1000 MG/100 ML VIAL (NON FORMULARY) IVPB PRN (16:01)
--- NOTE | 2018-01-16 16:05 | PN ---
Progress Note, Physician History of Present Illness: Pt seen and examined at bedside. He is awake and alert. He denies shortness of breath or lower ext edema. - Current Medication List Current Medications: Active Medications Acetaminophen (Ofirmev Injection -) 1,000 mg IVPB Q6H PRN PRN Reason: PAIN LEVEL 6-10 Last Admin: 01/16/18 16:01 Dose: 1,000 mg Aspirin (Asa -) 81 mg PO DAILY [facility] Last Admin: 01/16/18 09:04 Dose: 81 mg Atorvastatin Calcium (Lipitor -) 10 mg PO HS [facility] Last Admin: 01/15/18 21:58 Dose: 10 mg Docusate Sodium (Colace -) 100 mg PO BID [facility] Last Admin: 01/16/18 11:06 Dose: 100 mg Heparin Sodium (Porcine) (Heparin -) 5,000 unit SQ TID [facility] Last Admin: 01/16/18 13:48 Dose: Not Given Sodium Chloride (Normal Saline -) 1,000 mls @ 83 mls/hr IV ASDIR [facility] Last Admin: 01/16/18 00:21 Dose: Not Given Insulin Aspart (Novolog Vial Sliding Scale -) 1 vial SQ ACHS [facility]; Protocol Last Admin: 01/16/18 11:40 Dose: Not Given Insulin Detemir (Levemir Vial) 40 units SQ BID@0700,2200 [facility] Last Admin: 01/16/18 06:47 Dose: 40 units Polyethylene Glycol (Miralax (For Daily Use) -) 17 gm PO BID [facility] Last Admin: 01/16/18 11:06 Dose: 17 grams - Objective Vital Signs: Vital Signs Temperature 98.5 F 01/16/18 14:30 Pulse Rate 93 H 01/16/18 14:30 Respiratory Rate 22 H 01/16/18 14:30 Blood Pressure 118/64 01/16/18 14:30 O2 Sat by Pulse Oximetry (%) 100 01/16/18 09:00 Constitutional: Yes: Calm Eyes: Yes: Conjunctiva Clear HENT: Yes: Atraumatic Neck: Yes: Supple Cardiovascular: Yes: S1, S2 Respiratory: Yes: CTA Bilaterally Gastrointestinal: Yes: Normal Bowel Sounds, Soft Genitourinary: Yes: WNL Musculoskeletal: Yes: WNL Edema: No Neurological: Yes: Oriented Psychiatric: Yes: Oriented Labs: CBC, BMP 01/16/18 06:55 01/16/18 06:55 Problem List - Problems (1) CHELSEY (acute kidney injury) Code(s): N17.9 - ACUTE KIDNEY FAILURE, UNSPECIFIED (2) CHF (congestive heart failure) Code(s): I50.9 - HEART FAILURE, UNSPECIFIED Qualifiers: Heart failure type: systolic Heart failure chronicity: chronic Qualified Code(s): I50.22 - Chronic systolic (congestive) heart failure (3) HTN (hypertension) Code(s): I10 - ESSENTIAL (PRIMARY) HYPERTENSION Qualifiers: Hypertension type: essential hypertension Qualified Code(s): I10 - Essential (primary) hypertension (4) Diabetes mellitus Code(s): E11.9 - TYPE 2 DIABETES MELLITUS WITHOUT COMPLICATIONS Qualifiers: Diabetes mellitus type: type 2 Diabetes mellitus terminal operator insulin use: with terminal operator use Diabetes mellitus complication status: with circulatory complication Diabetes mellitus complication detail: with other circulatory complications Qualified Code(s): E11.59 - Type 2 diabetes mellitus with other circulatory complications; Z79.4 - intermediate school teacher (current) use of insulin (5) Sarcoid Code(s): D86.9 - SARCOIDOSIS, UNSPECIFIED (6) Scrotal abscess Code(s): N49.2 - INFLAMMATORY DISORDERS OF SCROTUM Assessment/Plan Current Medications Generic Name Dose Route Start Last Admin Trade Name Freq PRN Reason Stop Dose Admin Acetaminophen 1,000 mg 01/15/18 10:23 01/16/18 16:01 Ofirmev Injection - IVPB 1,000 mg Q6H PRN Administration PAIN LEVEL 6-10 Aspirin 81 mg 01/15/18 10:00 01/16/18 09:04 Asa - PO 81 mg DAILY SHIV Administration Atorvastatin Calcium 10 mg 01/15/18 22:00 01/15/18 21:58 Lipitor - PO 10 mg HS SHIV Administration Docusate Sodium 100 mg 01/16/18 11:00 01/16/18 11:06 Colace - PO 100 mg BID SHIV Administration Heparin Sodium (Porcine) 5,000 unit 01/15/18 06:00 01/16/18 13:48 Heparin - SQ Not Given TID SHIV Sodium Chloride 1,000 mls @ 83 mls/hr 01/14/18 23:00 01/16/18 00:21 Normal Saline - IV Not Given ASDIR SHIV Insulin Aspart 1 vial 01/15/18 07:00 01/16/18 11:40 Novolog Vial Sliding Scale - SQ Not Given ACHS [facility] Protocol Insulin Detemir 40 units 01/16/18 07:00 01/16/18 06:47 Levemir Vial SQ 40 units BID@0700,2200 SHIV Administration Polyethylene Glycol 17 gm 01/16/18 10:30 01/16/18 11:06 Miralax (For Daily Use) - PO 17 grams BID SHIV Administration Impression 1. CHELSEY 2. hypotension 3. obesity 4. CHF 5. CAD with [place] per pt 6. HLD 7. DM 8. sarcoid 9. arthritis 10. scrotal abscess 11. weight loss 12. abnormal right hilum Plan - renal function is improving - hold diuretics and roddy for now - monitor bp, which is improving - will need workup for weight loss - discussed plan with pt and his - hypotension and overdiuresis likely contributed to renal failure - will follow pt Dr Britt
--- NOTE | 2018-01-16 17:01 | PN ---
Progress Note, Physician History of Present Illness: patient stable no new issues - Current Medication List Current Medications: Active Medications Acetaminophen (Ofirmev Injection -) 1,000 mg IVPB Q6H PRN PRN Reason: PAIN LEVEL 6-10 Last Admin: 01/16/18 16:01 Dose: 1,000 mg Aspirin (Asa -) 81 mg PO DAILY [facility] Last Admin: 01/16/18 09:04 Dose: 81 mg Atorvastatin Calcium (Lipitor -) 10 mg PO HS [facility] Last Admin: 01/15/18 21:58 Dose: 10 mg Docusate Sodium (Colace -) 100 mg PO BID [facility] Last Admin: 01/16/18 11:06 Dose: 100 mg Heparin Sodium (Porcine) (Heparin -) 5,000 unit SQ TID [facility] Last Admin: 01/16/18 13:48 Dose: Not Given Sodium Chloride (Normal Saline -) 1,000 mls @ 83 mls/hr IV ASDIR [facility] Last Admin: 01/16/18 00:21 Dose: Not Given Insulin Aspart (Novolog Vial Sliding Scale -) 1 vial SQ [facility]; Protocol Last Admin: 01/16/18 11:40 Dose: Not Given Insulin Detemir (Levemir Vial) 40 units SQ BID@0700,2200 [facility] Last Admin: 01/16/18 06:47 Dose: 40 units Polyethylene Glycol (Miralax (For Daily Use) -) 17 gm PO BID [facility] Last Admin: 01/16/18 11:06 Dose: 17 grams - Objective Vital Signs: Vital Signs Temperature 98.5 F 01/16/18 14:30 Pulse Rate 93 H 01/16/18 14:30 Respiratory Rate 22 H 01/16/18 14:30 Blood Pressure 118/64 01/16/18 14:30 O2 Sat by Pulse Oximetry (%) 100 01/16/18 09:00 Constitutional: Yes: No Distress, Calm, Obese Cardiovascular: Yes: Regular Rate and Rhythm Respiratory: Yes: Regular, CTA Bilaterally Gastrointestinal: Yes: Normal Bowel Sounds, Soft Musculoskeletal: Yes: WNL Extremities: Yes: WNL Neurological: Yes: Alert, Oriented Psychiatric: Yes: Alert, Oriented Labs: CBC, BMP 01/16/18 06:55 01/16/18 06:55 Assessment/Plan Problem List - Problems (1) Hypotension Code(s): I95.9 - HYPOTENSION, UNSPECIFIED Qualifiers: Hypotension type: hypotension due to drug Qualified Code(s): I95.2 - Hypotension due to drugs (2) CHELSEY (acute kidney injury) Code(s): N17.9 - ACUTE KIDNEY FAILURE, UNSPECIFIED (3) CHF (congestive heart failure) Code(s): I50.9 - HEART FAILURE, UNSPECIFIED Qualifiers: Heart failure type: systolic Heart failure chronicity: chronic Qualified Code(s): I50.22 - Chronic systolic (congestive) heart failure (4) HTN (hypertension) Code(s): I10 - ESSENTIAL (PRIMARY) HYPERTENSION Qualifiers: Hypertension type: essential hypertension Qualified Code(s): I10 - Essential (primary) hypertension (5) Weight loss, abnormal Code(s): R63.4 - ABNORMAL WEIGHT LOSS (6) Diabetes mellitus Code(s): E11.9 - TYPE 2 DIABETES MELLITUS WITHOUT COMPLICATIONS Qualifiers: Diabetes mellitus type: type 2 Diabetes mellitus fci insulin use: with rn nicu use Diabetes mellitus complication status: with circulatory complication Diabetes mellitus complication detail: with other circulatory complications Qualified Code(s): E11.59 - Type 2 diabetes mellitus with other circulatory complications; Z79.4 - furniture mover (current) use of insulin (7) Morbid obesity with BMI of 45.0-49.9, adult Code(s): E66.01 - MORBID (SEVERE) OBESITY DUE TO EXCESS CALORIES; Z68.42 - BODY MASS INDEX (BMI) 45.0-49.9, ADULT (8) Scrotal abscess Code(s): N49.2 - INFLAMMATORY DISORDERS OF SCROTUM plan continue current mgmt rest as per the team patient stable
--- NOTE | 2018-01-16 19:17 | EKG ---
Test Reason : Blood Pressure : / mmHG Vent. Rate : 087 BPM Atrial Rate : 087 BPM P-R Int : 220 ms QRS Dur : 110 ms QT Int : 374 ms P-R-T Axes : 055 -11 029 degrees QTc Int : 450 ms SINUS RHYTHM WITH 1ST DEGREE A-V BLOCK CANNOT RULE OUT INFERIOR INFARCT , AGE UNDETERMINED ABNORMAL ECG WHEN COMPARED WITH ECG OF 29-NOV-2017 06:37, [place] INTERVAL HAS INCREASED Confirmed by MYRNA BROOKS, MEGHAN ([id number]) on 01/16/2018 7:17:02 PM Referred By: Confirmed By:MEGHAN NORRIS MD
[2018-01-16] MEDS: ATORVASTATIN CA 10 MG TABLET (FP) PO SCH (21:45)
[2018-01-17] MEDS: SODIUM CHLORIDE 1,000 ML IV SCH ×2 (05:15)
[2018-01-17] MEDS: HEPARIN NA (PORCINE) 5,000 UNITS/ML 1ML VIAL SQ SCH ×2 (06:31→14:19)
[2018-01-17] MEDS: INSULIN (LEVEMIR) 100 UNITS/ML UNITS SQ SCH (06:32)
[2018-01-17] MEDS: INSULIN SLIDING SCALE (NOVOLOG) 1 VIAL SQ SCH ×3 (06:32→16:54)
[2018-01-17] MEDS ORDERED: PT OWN MED DRAWER 7, Y5N ONE ×2 (06:45→10:25)
[2018-01-17] MEDS ORDERED: INSULIN (NOVOLOG) ASPART 100 UNITS/ML 10ML VIAL ONE (06:46)
[2018-01-17 07:09] LABS: BASO % 0.9 % (0-2.0); EOS % 14.6 % (0-4.5); HEMATOCRIT 32.7 % (35.4-49); LYMPH % 13.5 % (8-40); MCH 29.3 pg (25.7-33.7); MCHC 33.7 g/dl (32.0-35.9); MEAN PLT VOLUME 7.7 fl (7.5-11.1); MONO % 16.2 % (3.8-10.2); NEUT % 54.8 % (42.8-82.8); PLATELET COUNT 203 K/MM3 (134-434); RBC 3.76 M/mm3 (4.00-5.60); RDW 13.3 % (11.9-15.9)
[2018-01-17 07:34] LABS: ANION GAP 7 MMOL/L (8-16); BLOOD UREA NITROGEN 19 mg/dL (7-18); CALCIUM 9.4 mg/dL (8.5-10.1); CHLORIDE 108 mmol/L (98-107); CO2 25 mmol/L (21-32); GLUCOSE,RANDOM 82 mg/dL (74-106); PHOSPHOROUS 4.6 mg/dL (2.5-4.9); SODIUM 139 mmol/L (136-145)
[2018-01-17] MEDS: ACETAMINOPHEN 1000 MG/100 ML VIAL (NON FORMULARY) IVPB PRN (09:18)
[2018-01-17] MEDS: DOCUSATE SODIUM 100 MG CAPSULE (FP) PO SCH ×2 (10:33→10:37)
[2018-01-17] MEDS: POLYETHYLENE GLYCOL 3350 119 GM BTL PO SCH ×2 (10:33→10:37)
[2018-01-17] MEDS: ASPIRIN 81 MG CHEWABLE TABLETS PO SCH (10:33)
--- NOTE | 2018-01-17 11:23 | PN ---
Progress Note, Physician History of Present Illness: Pt seen and examined at bedside. He is awake and alert. He denies shortness of breath or lower ext edema. - Current Medication List Current Medications: Active Medications Aspirin (Asa -) 81 mg PO DAILY [facility] Last Admin: 01/17/18 10:33 Dose: 81 mg Atorvastatin Calcium (Lipitor -) 10 mg PO HS [facility] Last Admin: 01/16/18 21:45 Dose: 10 mg Docusate Sodium (Colace -) 100 mg PO BID [facility] Last Admin: 01/17/18 10:37 Dose: Not Given Heparin Sodium (Porcine) (Heparin -) 5,000 unit SQ TID [facility] Last Admin: 01/17/18 06:31 Dose: Not Given Sodium Chloride (Normal Saline -) 1,000 mls @ 83 mls/hr IV ASDIR [facility] Last Admin: 01/17/18 05:15 Dose: 83 mls/hr Insulin Aspart (Novolog Vial Sliding Scale -) 1 vial SQ ACHS [facility]; Protocol Last Admin: 01/17/18 06:32 Dose: Not Given Insulin Detemir (Levemir Vial) 40 units SQ BID@0700,2200 [facility] Last Admin: 01/17/18 06:32 Dose: 40 units Polyethylene Glycol (Miralax (For Daily Use) -) 17 gm PO BID [facility] Last Admin: 01/17/18 10:37 Dose: Not Given - Objective Vital Signs: Vital Signs Temperature 99.3 F 01/17/18 06:00 Pulse Rate 97 H 01/17/18 06:00 Respiratory Rate 20 01/17/18 06:00 Blood Pressure 121/60 01/17/18 06:00 O2 Sat by Pulse Oximetry (%) 100 01/16/18 09:00 Constitutional: Yes: Calm Eyes: Yes: Conjunctiva Clear HENT: Yes: Atraumatic Neck: Yes: Supple Cardiovascular: Yes: S1, S2 Respiratory: Yes: CTA Bilaterally Gastrointestinal: Yes: Soft, Abdomen, Obese Genitourinary: Yes: WNL Musculoskeletal: Yes: WNL Edema: LLE: Trace, RLE: Trace Integumentary: Yes: Rash, Venous Stasis Changes Neurological: Yes: Oriented Psychiatric: Yes: Oriented Labs: CBC, BMP 01/17/18 06:30 01/17/18 06:30 Problem List - Problems (1) CHELSEY (acute kidney injury) Code(s): N17.9 - ACUTE KIDNEY FAILURE, UNSPECIFIED (2) CHF (congestive heart failure) Code(s): I50.9 - HEART FAILURE, UNSPECIFIED Qualifiers: Heart failure type: systolic Heart failure chronicity: chronic Qualified Code(s): I50.22 - Chronic systolic (congestive) heart failure (3) HTN (hypertension) Code(s): I10 - ESSENTIAL (PRIMARY) HYPERTENSION Qualifiers: Hypertension type: essential hypertension Qualified Code(s): I10 - Essential (primary) hypertension (4) Diabetes mellitus Code(s): E11.9 - TYPE 2 DIABETES MELLITUS WITHOUT COMPLICATIONS Qualifiers: Diabetes mellitus type: type 2 Diabetes mellitus chcf insulin use: with chcf use Diabetes mellitus complication status: with circulatory complication Diabetes mellitus complication detail: with other circulatory complications Qualified Code(s): E11.59 - Type 2 diabetes mellitus with other circulatory complications; Z79.4 - correction (current) use of insulin (5) Sarcoid Code(s): D86.9 - SARCOIDOSIS, UNSPECIFIED (6) Scrotal abscess Code(s): N49.2 - INFLAMMATORY DISORDERS OF SCROTUM Assessment/Plan Current Medications Generic Name Dose Route Start Last Admin Trade Name Freq PRN Reason Stop Dose Admin Aspirin 81 mg 01/15/18 10:00 01/17/18 10:33 Asa - PO 81 mg DAILY [facility] Administration Atorvastatin Calcium 10 mg 01/15/18 22:00 01/16/18 21:45 Lipitor - PO 10 mg HS [facility] Administration Docusate Sodium 100 mg 01/16/18 11:00 01/17/18 10:37 Colace - PO Not Given BID [facility] Heparin Sodium (Porcine) 5,000 unit 01/15/18 06:00 01/17/18 06:31 Heparin - SQ Not Given TID [facility] Sodium Chloride 1,000 mls @ 83 mls/hr 01/14/18 23:00 01/17/18 05:15 Normal Saline - IV 83 mls/hr ASDIR [facility] Administration Insulin Aspart 1 vial 01/15/18 07:00 01/17/18 06:32 Novolog Vial Sliding Scale - SQ Not Given ACHS [facility] Protocol Insulin Detemir 40 units 01/16/18 07:00 01/17/18 06:32 Levemir Vial SQ 40 units BID@0700,2200 [facility] Administration Polyethylene Glycol 17 gm 01/16/18 10:30 01/17/18 10:37 Miralax (For Daily Use) - PO Not Given BID [facility] Impression 1. CHELSEY 2. hypotension 3. obesity 4. CHF 5. CAD with DE per pt 6. HLD 7. DM 8. sarcoid 9. arthritis 10. scrotal abscess 11. weight loss 12. abnormal right hilum Plan - renal function has stabilized - will stop fluids - lasix and hctz are on hold - restart low dose roddy if bp permits - will need close outpt follow up with cardio and pmd - pt is seeing a hand or machine paster [place] the [place] for his sarcoid this month - hypotension and overdiuresis likely contributed to renal failure - will follow pt Dr Britt
--- NOTE | 2018-01-17 15:15 | PN ---
Progress Note, Physician History of Present Illness: patient stable no complaints patients cx is positive still oozing from scrotal sinus tract - Current Medication List Current Medications: Active Medications Aspirin (Asa -) 81 mg PO DAILY [facility] Last Admin: 01/17/18 10:33 Dose: 81 mg Atorvastatin Calcium (Lipitor -) 10 mg PO HS [facility] Last Admin: 01/16/18 21:45 Dose: 10 mg Docusate Sodium (Colace -) 100 mg PO BID [facility] Last Admin: 01/17/18 10:37 Dose: Not Given Heparin Sodium (Porcine) (Heparin -) 5,000 unit SQ TID [facility] Last Admin: 01/17/18 14:19 Dose: Not Given Insulin Aspart (Novolog Vial Sliding Scale -) 1 vial SQ ACHS [facility]; Protocol Last Admin: 01/17/18 11:45 Dose: Not Given Insulin Detemir (Levemir Vial) 40 units SQ BID@0700,2200 [facility] Last Admin: 01/17/18 06:32 Dose: 40 units Polyethylene Glycol (Miralax (For Daily Use) -) 17 gm PO BID [facility] Last Admin: 01/17/18 10:37 Dose: Not Given - Objective Vital Signs: Vital Signs Temperature 98.4 F 01/17/18 10:00 Pulse Rate 92 H 01/17/18 10:00 Respiratory Rate 20 01/17/18 10:00 Blood Pressure 137/84 01/17/18 10:00 O2 Sat by Pulse Oximetry (%) 99 01/17/18 09:00 Constitutional: Yes: No Distress, Calm, Obese Cardiovascular: Yes: Regular Rate and Rhythm Respiratory: Yes: Regular, CTA Bilaterally Gastrointestinal: Yes: Normal Bowel Sounds, Soft Musculoskeletal: Yes: WNL Extremities: Yes: WNL Wound/Incision: Yes: Draining Neurological: Yes: Alert, Oriented Psychiatric: Yes: Alert, Oriented Labs: CBC, BMP 01/17/18 06:30 01/17/18 06:30 Assessment/Plan Problem List - Problems (1) Hypotension Code(s): I95.9 - HYPOTENSION, UNSPECIFIED Qualifiers: Hypotension type: hypotension due to drug Qualified Code(s): I95.2 - Hypotension due to drugs (2) CHELSEY (acute kidney injury) Code(s): N17.9 - ACUTE KIDNEY FAILURE, UNSPECIFIED (3) CHF (congestive heart failure) Code(s): I50.9 - HEART FAILURE, UNSPECIFIED Qualifiers: Heart failure type: systolic Heart failure chronicity: chronic Qualified Code(s): I50.22 - Chronic systolic (congestive) heart failure (4) HTN (hypertension) Code(s): I10 - ESSENTIAL (PRIMARY) HYPERTENSION Qualifiers: Hypertension type: essential hypertension Qualified Code(s): I10 - Essential (primary) hypertension (5) Weight loss, abnormal Code(s): R63.4 - ABNORMAL WEIGHT LOSS (6) Diabetes mellitus Code(s): E11.9 - TYPE 2 DIABETES MELLITUS WITHOUT COMPLICATIONS Qualifiers: Diabetes mellitus type: type 2 Diabetes mellitus fci insulin use: with fci use Diabetes mellitus complication status: with circulatory complication Diabetes mellitus complication detail: with other circulatory complications Qualified Code(s): E11.59 - Type 2 diabetes mellitus with other circulatory complications; 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
[2018-01-17 15:32] VITALS: BP 137/77; PULSE 99; TEMP 98.3
[2018-01-17 16:09] VITALS: BMI 41.6
--- NOTE | 2018-01-17 17:30 | DS ---
Physical Examination Vital Signs: Vital Signs Temperature 98.3 F 01/17/18 14:30 Pulse Rate 99 H 01/17/18 14:30 Respiratory Rate 18 01/17/18 14:30 Blood Pressure 137/77 01/17/18 14:30 O2 Sat by Pulse Oximetry (%) 99 01/17/18 09:00 Middle aged man comfortable not in distress HEENT: mm moist no anemia NECK: No JVd No Bruit CHEST: CTA B/L CVS: S1S2 R no m/g/r ABD: Obese non tender Bs + EXT: Trace edema feet, Pulses + DENTAL AMALGAM PROCESSOR: AOX3 non focal : scrotal abscess Labs: CBC, BMP 01/17/18 06:30 01/17/18 06:30 CBC,CMP WBC 5.0 K/mm3 (4.0-10.0) 01/17/18 06:30 RBC 3.76 M/mm3 (4.00-5.60) L 01/17/18 06:30 Hgb 11.0 GM/dL (11.7-16.9) L 01/17/18 06:30 Hct 32.7 % (35.4-49) L 01/17/18 06:30 MCV 87.0 fl (80-96) 01/17/18 06:30 MCH 29.3 pg (25.7-33.7) 01/17/18 06:30 MCHC 33.7 g/dl (32.0-35.9) 01/17/18 06:30 RDW 13.3 % (11.9-15.9) 01/17/18 06:30 Plt Count 203 K/MM3 (134-434) 01/17/18 06:30 MPV 7.7 fl (7.5-11.1) 01/17/18 06:30 Absolute Neuts (auto) 2.8 K/mm3 (1.5-8.0) 01/17/18 06:30 Neutrophils % 54.8 % (42.8-82.8) 01/17/18 06:30 Lymphocytes % 13.5 % (8-40) 01/17/18 06:30 Monocytes % 16.2 % (3.8-10.2) H 01/17/18 06:30 Eosinophils % 14.6 % (0-4.5) H 01/17/18 06:30 Basophils % 0.9 % (0-2.0) 01/17/18 06:30 Nucleated RBC % 0 % (0-0) 01/17/18 06:30 Sodium 139 mmol/L (136-145) 01/17/18 06:30 Potassium 4.0 mmol/L (3.5-5.1) 01/17/18 06:30 Chloride 108 mmol/L (98-107) H 01/17/18 06:30 Carbon Dioxide 25 mmol/L (21-32) 01/17/18 06:30 Anion Gap 7 MMOL/L (8-16) L 01/17/18 06:30 BUN 19 mg/dL (7-18) H 01/17/18 06:30 Creatinine 1.0 mg/dL (0.55-1.3) 01/17/18 06:30 Creat Clearance w eGFR > 60 (>60) 01/17/18 06:30 POC Glucometer 104 UNITS (80-120) 01/17/18 16:51 Random Glucose 82 mg/dL (74-106) 01/17/18 06:30 Lactic Acid 1.8 mmol/L (0.4-2.0) 01/14/18 15:09 Calcium 9.4 mg/dL (8.5-10.1) 01/17/18 06:30 Phosphorus 4.6 mg/dL (2.5-4.9) 01/17/18 06:30 Magnesium 2.0 mg/dL (1.8-2.4) 01/17/18 06:30 Total Bilirubin 0.3 mg/dL (0.2-1) 01/15/18 07:50 AST 11 U/L (15-37) L 01/15/18 07:50 ALT 17 U/L (13-61) 01/15/18 07:50 Alkaline Phosphatase 95 U/L (45-117) 01/15/18 07:50 Total Protein 6.7 g/dl (6.4-8.2) 01/15/18 07:50 Albumin 3.3 g/dl (3.4-5.0) L 01/15/18 07:50 Microbiology 01/14/18 15:09 Blood - Peripheral Venous Blood Culture - Preliminary NO GROWTH OBTAINED AFTER 72 HOURS, INCUBATION TO CONTINUE FOR 2 DAYS. 01/14/18 15:09 Blood - Peripheral Venous Blood Culture - Preliminary NO GROWTH OBTAINED AFTER 72 HOURS, INCUBATION TO CONTINUE FOR 2 DAYS. 01/14/18 15:09 Back Gram Stain - Final 01/14/18 15:09 Back Wound Culture - Preliminary Staphylococcus Species Non Lactose Fermenting Gnb 01/14/18 15:09 Groin Gram Stain - Final 01/14/18 15:09 Groin Wound Culture - Final Staphylococcus Coagulase Neg 01/14/18 23:50 Urine - Urine Clean Catch Urine Culture - Final NO GROWTH OBTAINED Discharge Summary Reason For Visit: ACUTE RENAL FAILURE Current Active Problems CHELSEY (acute kidney injury) (Acute) ARF (acute renal failure) (Acute) CHF (congestive heart failure) (Acute) Chest mass (Acute) HTN (hypertension) (Acute) Hypotension (Acute) Weight loss, abnormal (Acute) Hospital Course: 63 yrs old man multiple medical Co-morbidities morbidly obese recently diagnosed systolic HF with EF 30 % , Hypercholasterelemia, T2DM on Basal insulin , CKD stage 3, Sarcoidosis, Psoriatic arthrirtis, chronic scrotal abscess, patient scheduled for Scrotal abscess surgery visted PMD office for Pree Op Evaluation, low BP was noted so transferred to ED for evaluation in the Ed w/ u shows dehydration and CHELSEY with elwevated BUN Creat, as per patient Metoprolol and Lasix was hold few days ago patient was only on Losartan 5 mg and HCTZ 12.5 mg on admission, considering low BP and CHELSEY on Hospitalization HCTZ+ Losartan was held today patient is Euvolumic , renal functions are at abse liune will hold Hyzar (Small dose can be resumed as out patient), also evaluated by Id for scrotal abscess culture Grew GNB nonn lactose fermeter added Levofloxacin 500 mg daily for 5 days plan of acre and medication explained to the and patient. Time spent; 38 minutes Condition: Fair - Instructions Referrals: Marilee Ford MD [Staff Physician] - 01/19/18 Natalia Schaefer MD [Primary Care Provider] - 1 Week Hermelindo Pedraza MD [Staff Physician] - 1 Week Disposition: HOME - Home Medications Comprehensive Discharge Medication List: Ambulatory Orders Insulin Glargine,Hum.rec.anlog [Lantus] 80 unit SQ HS 11/29/17 Aspirin [ASA -] 81 mg PO DAILY 01/14/18 Atorvastatin Ca [Lipitor] 0 mg PO HS 01/14/18 Docusate Sodium [Colace -] 100 mg PO BID #30 capsule 01/17/18 levoFLOXacin [Levaquin -] 500 mg PO DAILY #7 tablet 01/17/18
== END 2018-01-17 18:01 | disposition home or self-care (01) | DRG 460 ==
LOC: JER 14:04 → JERBED 22:04 → OBSVTOIN 22:58 → JERBED 23:15 → UNDOADMOB 23:15 → J5S 01-15 00:31 → JERBED 01-15 00:31
PROVIDERS: ADMIT Internal Medicine; ATTEND Internal Medicine
DX: N17.9 Acute kidney failure, unspecified (principal); I95.2 Hypotension due to drugs; I50.22 Chronic systolic (congestive) heart failure; T50.995A Adverse effect of other drugs, medicaments and biological substances, initial encounter; E86.0 Dehydration; R63.4 Abnormal weight loss; Z68.41 Body mass index [BMI] 40.0-44.9, adult; E66.01 Morbid (severe) obesity due to excess calories; N49.2 Inflammatory disorders of scrotum; D86.9 Sarcoidosis, unspecified; L40.50 Arthropathic psoriasis, unspecified; I13.0 Hypertensive heart and chronic kidney disease with heart failure and stage 1 through stage 4 chronic kidney disease, or unspecified chronic kidney disease; M19.90 Unspecified osteoarthritis, unspecified site; E11.22 Type 2 diabetes mellitus with diabetic chronic kidney disease; B95.8 Unspecified staphylococcus as the cause of diseases classified elsewhere; N18.3 Chronic kidney disease, stage 3 (moderate); Z79.4 Long term (current) use of insulin
CPT/HCPCS: 36415; 71045-TC-FY; 72192-TC; 76775-TC; 76870-TC; 80048; 80053; 81003; 82436; 82570; 82962; 83605; 83735; 84100; 84133; 84300; 85025; 86308; 87040; 87070; 87077; 87086; 87186; 87205; 93005; 93010; 99285-25; G0378; J0131; J1644; J7030